=== PATIENT | female | born 1965 | race Caucasian/White ===

== ENCOUNTER 2021-10-21 07:54 | Emergency (ER) | payer MEDICAID, SELFPAY ==
--- NOTE | ~2021-10-21 | XR_ITS ---
EXAMINATION: XR G tube evaluation w imaging DATE: 10/21/2021 13:04 INDICATION: Permanent percutaneous gastrostomy tube placement TECHNIQUE: Supine AP view of the abdomen and pelvis was obtained. COMPARISON: 10/21/2021 at 8:41 AM FINDINGS: Contrast has been injected through the . Scans gastrostomy tube which opacifies the distal stomach an d duodenum to the level of the ligament of Treitz. The contrast outlines the lucent gastrostomy tube bulb in the stomach. No evident contrast extravasation. There is additional more dilute oral contrast material in the colon extending to the rectum which was present at the time of the prior study. No d ilated loops of bowel to suggest obstruction. Lung bases are clear. Heart size is normal. IMPRESSION: 1. Percutaneous gastrostomy tube tip and bulb in expected position within the body of the stomach. Reviewed, dictated and finalized at location A. PACKER IMPRESSION: 1. Percutaneous gastrostomy tube tip and bulb in expected position within the b rafa of the stomach.
--- NOTE | ~2021-10-21 | XR_ITS ---
XR abdomen NG/feed tube insert DATE: 10/21/2021 08:46 INDICATION: Feeding tube placement TECHNIQUE: Portable supine AP view COMPARISON: None FINDINGS: A tube overlies the left mid to upper abdomen. There is radiopaque contrast material within the rectum and colon. No bowel obstruction is evident. The psoas shadows are intact. No visceromegaly is detected. Included skeletal structures are unremark able. IMPRESSION: Tube overlies left mid to upper abdomen Reviewed, dictated and finalized at Location A. Reviewed, dictated and finalized at location B. ER INSTALLER
--- NOTE | ~2021-10-21 | CT_ITS ---
EXAMINATION: CT brain wo con DATE: 10/21/2021 11:06 INDICATION: Recent intracranial hemorrhage presenting post fall TECHNIQUE: Computed tomography (CT) of the head was performed without intravenous contrast. Sagittal and coronal reconstructions were performed. The mA was adjusted according to patient size. Iterative reconstruction technique was employed. The dose-length product was 681.00 mGy-cm. COMPARISON: None FINDINGS: There is a subdural hematoma with mixed attenuation measuring up to 1.8 cm in maximal thickness under lying a recent left frontoparietal craniotomy with overlying skin abhishek. Hematoma measures approxim ately 10 cm AP and 9.3 cm craniocaudally. The heterogeneous attenuation suggests relatively recent ei ther acute or subacute hemorrhage. There is mass effect with effacement of the underlying sulci, mild asymmetric decrease in size of the right lateral ventricle and 6 mm right to left midline shift at t he interventricular septum. There is a moderate-sized region of decreased predominantly white matter attenuation in the underlying right frontal lobe consistent with vasogenic edema which could be relat ed to reported prior intracranial hemorrhage or surgery. The orbits, paranasal sinuses and mastoid ai r cells are normal. IMPRESSION: 1. Large likely acute to subacute right frontoparietal subdural hematoma underlying a large craniotom y resulting in significant mass effect with 6 mm right to left midline shift. There is no prior imagi ng and is unclear to what extent this represents immediate postsurgical change versus ongoing or more recent hemorrhage. Recommend correlation with any prior outside imaging. 2. Moderate-sized region of vasogenic edema in the right frontal lobe likely related to reported rece nt intracranial hemorrhage or surgery with differential including infarct, malignancy or infection. Reviewed, dictated and finalized at location A. ECTIONS REP IMPRESSION: 1. Large likely acute to subacute right frontoparietal subdural hematoma underl sushma a large craniotomy resulting in significant mass effect with 6 mm right to left midline shift. There is no prior imaging and is unclear to what extent th is represents immediate postsurgical change versus ongoing or more recent hemor rhage. Recommend correlation with any prior outside imaging. 2. Moderate-sized region of vasogenic edema in the right frontal lobe likely re lated to reported recent intracranial hemorrhage or surgery with differential i ncluding infarct, malignancy or infection.
[2021-10-21 07:57] VITALS: BP 131/85; PULSE 112; RESP 16; TEMP 36.2; O2SAT 98
[2021-10-21 08:03] VITALS: BP 143/80; PULSE 107; RESP 16; TEMP 36.2; O2SAT 99
[2021-10-21 08:22] VITALS: RESP 16
--- NOTE | 2021-10-21 08:26 | PC.NURSE ---
G TUBE REPLACED AT THE BEDSIDE BY CIRA PETERSON AT 0800.
[2021-10-21 09:05] VITALS: BP 122/78; PULSE 110; RESP 16; TEMP 36.3; O2SAT 97
--- NOTE | 2021-10-21 09:10 | ED.GENADULT ---
HPI - General Adult General Chief complaint: Unspecified Stated complaint: PEG self removed Time Seen by Provider: 10/21/21 08:07 Source: patient, EMS and other ([facility] report) Mode of arrival: EMS Limitations: other (some aphasia due to stroke. pt whispers.) History of Present Illness HPI narrative: Pt pulled out PEG tube overnight. Pt has apparently pulled out the tube and a replaced catheter several times. Pt says she does not want the tube in anymore. Daughter is on way and will discuss with her to determine future course. Hudson placed by nursing without difficulty. Onset (ago): hour(s) Related Data Home Medications Medication Instructions Recorded Confirmed acetaminophen 325 mg FEEDING TUBE PRN PRN 10/21/21 carvedilol 12.5 mg FEEDING TUBE BID 10/21/21 folic acid 1 mg FEEDING TUBE DAILY 10/21/21 heparin (porcine) 5,000 unit SUBCUT Q8H 10/21/21 lacosamide [Vimpat] 100 mg FEEDING TUBE Q12H 10/21/21 levetiracetam 750 mg PO BID 10/21/21 lisinopril 20 mg FEEDING TUBE DAILY 10/21/21 loperamide 2 mg FEEDING TUBE QID PRN 10/21/21 melatonin 3 mg FEEDING TUBE HS 10/21/21 10/21/21 Allergies Allergy/AdvReac Type Severity Reaction Status Date / Time No Known Allergies Allergy Unknown Verified 10/21/21 08:28 Review of Systems Review of Systems: no specific complaints Exam Const: General: comfortable and alert Nutritional Appearance: underweight Orientation/consciousness: patient oriented x3 Other: some expressive aphasia due to prior CVA HENMT: Head: atraumatic (large scalp wound with abhishek present appears healed) Mouth: Yes Normal oral and palatal mucosa present Neck: Neck: normal visual inspection and no meningeal signs Chest: Chest palpation & inspection: normal inspection of the chest Resp: Effort & Inspection: normal respiratory effort Auscultation: clear to auscultation bilaterally Cardio: Rate: regular rate Rhythm: regular rhythm GI: Inspection: normal to inspection (peg tube site intact no drainage) Skin: General skin exam: normal color and no rashes or lesions noted Neuro: General: patient oriented x3 and no focal motor deficits (chronic right sided deficit from prior CVA) Course Course Emergency Course: on daughter's arrival apparently there was a fall since last night and a nw bruise on the patient's face. ordered CT head. Talked with Dr Deleon at [facility] who reviewed CT and said this is all post op and not acute and can be discharged. also said it was ok to remove abhishek. abhishek removed without difficulty. Vital Signs Vital signs: Vital Signs Temperature 97.1 F L 10/21/21 07:57 Pulse Rate 112 H 10/21/21 07:57 Respiratory Rate 16 10/21/21 07:57 Blood Pressure 131/85 10/21/21 07:57 Pulse Oximetry 98 10/21/21 07:57 Temperature 97.4 F L 10/21/21 09:05 Pulse Rate 110 H 10/21/21 09:05 Respiratory Rate 16 10/21/21 09:05 Blood Pressure 122/78 10/21/21 09:05 Pulse Oximetry 97 10/21/21 09:05 Procedures Feeding Tube Replacement Feeding Tube #1: Feeding Tube Placement Date: 10/21/21 Feeding Tube Placement Time: 13:29 Type of Tube: gastrostomy Insertion Site Prior to Procedure: clean [place] Tube Size (F): 16 Verification of Placement: gastrografin injection Tube Secured by: attachment device Patient Tolerated Procedure: well Medical Decision Making Vital Signs Vital Signs: Vital Signs Temperature 97.1 F L 10/21/21 07:57 Pulse Rate 112 H 10/21/21 07:57 Respiratory Rate 16 10/21/21 07:57 Blood Pressure 131/85 10/21/21 07:57 Pulse Oximetry 98 10/21/21 07:57 Temperature 97.4 F L 10/21/21 09:05 Pulse Rate 110 H 10/21/21 09:05 Respiratory Rate 16 10/21/21 09:05 Blood Pressure 122/78 10/21/21 09:05 Pulse Oximetry 97 10/21/21 09:05 Lab Data Result diagrams: 10/21/21 12:10 10/21/21 12:11 Labs: Lab Results 10/21/21 10/21/21 10/21/21 Range/Uni
--- NOTE | 2021-10-21 09:55 | PC.NURSE ---
SPOKE WITH LOLA DE LEÓN DAUGHTER OF PT WHO STATES SHE WILL COME UP [place] TO SPEAK WITH DR DEVI.
--- NOTE | 2021-10-21 10:35 | PC.NURSE ---
PT'S DAUGHTER AT BEDSIDE. DR DEVI MADE AWARE.
--- NOTE | 2021-10-21 11:17 | PC.NURSE ---
1100 DAUGHTER AT THE BEDSIDE. DAUGHTER REPORTS THAT PATIENT HAS A SWOLLEN LIP AND A BRUISE THAT SHE DID NOT HAVE YESTERDAY. UNSURE IF SHE FELL. PATIENT DOES NOT REMEMBER. NO REPORT FROM EMS OR [facility] THAT THE PATIENT FELL. MD NOTIFIED, HEAD CT ORDERED. PATIENT REMAINS C/A/O.
[2021-10-21 12:38] LABS: Basophils Absolute Auto 0.1 K/mm3 (0.0-0.1); Basophils Percent Auto 0.8 % (0.2-1.2); Eosinophils Absolute Auto 0.2 K/mm3 (0-0.3); Eosinophils Percent Auto 1.3 % (0-4.4); Hematocrit 39.2 % (37.0-47.0); Hemoglobin 12.6 g/dL (12.0-15.0); Immature Granulocyte Percent A 1.4 % (0-0.5); Lymphocytes Absolute Auto 2.72 K/mm3 (0.9-3.2); Lymphocytes Percent Auto 19.1 % (18.3-44.2); Mean Corpuscular HGB Conc 32.1 g/dl (32-36); Mean Corpuscular Hemoglobin 32.5 pg (26-34); Mean Platelet Volume 8.9 fl (7.4-10.4); Monocytes Absolute Auto 1.2 K/mm3 (0.1-0.6); Monocytes Percent Auto 8.1 % (2.6-8.5); Neutrophils Absolute Auto 9.9 K/mm3 (1.3-6.7); Neutrophils Percent Auto 69.3 % (45.5-73.1); Platelet Count Result 850 k/mm3 (150-375); Red Blood Count 3.88 M/mm3 (4.2-5.4); Red Cell Distribution Width 15.2 % (11.5-14.5); White Blood Count 14.3 K/mm3 (4.5-10.0)
[2021-10-21 12:48] LABS: Partial Thromboplastin Time 24.2 SECONDS (22.3-36.8)
[2021-10-21 15:15] VITALS: BP 132/74; PULSE 104; RESP 16; O2SAT 97
== END 2021-10-21 15:25 ==
PROVIDERS: Emergency Provider Emergency Medicine
DX: Z43.1 Encounter for attention to gastrostomy (principal); I69.320 Aphasia following cerebral infarction; S00.83XA Contusion of other part of head, initial encounter; W19.XXXA Unspecified fall, initial encounter; Z79.01 Long term (current) use of anticoagulants
CPT/HCPCS: 36415; 49450; 49465; 70450; 85025; 85610; 85730; 99284

== ENCOUNTER 2022-02-20 21:37 | Observation (INO) | payer OTHER, SELFPAY ==
--- NOTE | ~2022-02-20 | XR_ITS ---
EXAMINATION: XR chest 1V portable DATE: 02/20/2022 22:32 INDICATION: COVID-19 pneumonia. TECHNIQUE: A single frontal view of the chest was obtained on 3 radiographs. COMPARISON: CT abdomen 12/20/2004 FINDINGS: There is mild scarring at the lung apices. No pleural effusion or pneumothorax. The heart s ize is normal. A gastrostomy tube is noted. IMPRESSION: 1. Mild scarring at the lung apices. Reviewed, dictated and finalized at location A.
[2022-02-20 21:39] VITALS: BP 85/53; PULSE 72; RESP 17; TEMP 36.4; O2SAT 98
[2022-02-20] MEDS: SODIUM CHLORIDE 0.9% IV 1,000 ML 999 ML IV CONT ×2 (21:51→23:08)
[2022-02-20 21:54] VITALS: PULSE 73; RESP 18
[2022-02-20 22:00] VITALS: BP 97/56; PULSE 66; RESP 16
--- NOTE | 2022-02-20 22:13 | ECG_ITS ---
Measurements Intervals [place] Rate: 67 P: -60 WA: 141 QRS: 77 QRSD: 64 T: 74 QT: 397 QTc: 420 Interpretive Statements POOR QUALITY ECG WITH BASELINE ARTIFACT SINUS RHYTHM POSSIBLE PREVIOUS ANTEROSEPTAL FL ABNORMAL ECG NO PREVIOUS ECG AVAILABLE FOR COMPARISON Electronically Signed On 02-21-2022 13:05:14 CDT by Eliot Saucedo M.D.
--- NOTE | 2022-02-20 22:22 | ED.GENADULT ---
HPI - General Adult General Chief complaint: Unspecified Stated complaint: hypotensive and COVID + 02/16 Time Seen by Provider: 02/20/22 22:10 History of Present Illness HPI narrative: 57-year-old female sent in from a rehab facility secondary to persistent hypotension today. Patient states that she was recently diagnosed with COVID. She is had some cough congestion. Some intermittent fevers. She did not feel short of breath. States that her blood pressures been much lower than it normally had been running. She denies any chest pain. She had no urinary symptoms. Patient is in the rehab facility because she had a stroke about 5 months ago left her paralyzed on the left side. Related Data Home Medications Medication Instructions Recorded Confirmed acetaminophen 325 mg tablet 325 mg feeding tube PRN PRN Pain 10/21/21 carvedilol 12.5 mg tablet 12.5 mg feeding tube BID 10/21/21 folic acid 1 mg tablet 1 mg feeding tube DAILY 10/21/21 heparin (porcine) 5,000 unit/mL 5,000 unit subcut Q8H 10/21/21 injection syringe lacosamide 100 mg tablet (Vimpat) 100 mg feeding tube Q12H 10/21/21 levetiracetam 750 mg tablet 750 mg PO BID 10/21/21 lisinopril 20 mg tablet 20 mg feeding tube DAILY 10/21/21 loperamide 2 mg tablet 2 mg feeding tube QID PRN Diarrhea 10/21/21 melatonin 3 mg tablet 3 mg feeding tube HS 10/21/21 10/21/21 Allergies Allergy/AdvReac Type Severity Reaction Status Date / Time No Known Allergies Allergy Unknown Verified 02/20/22 21:57 Review of Systems Review of Systems: CONSTITUTIONAL: Some mild fevers have been noted EYES: Denies visual changes, redness, or discharge. ENT: Denies rhinorrhea, congestion, sore throat, or otalgia. CARDIOVASCULAR: Denies chest pain, palpitations, or edema. RESPIRATORY: Having some cough but denies any shortness of breath. GASTROINTESTINAL: Denies abdominal pain, nausea, vomiting, or diarrhea. GENITOURINARY: Denies dysuria or hematuria. SKIN: Denies rash or itching. MUSCULOSKELETAL: Denies back pain, joint pain, or myalgia. NEUROLOGIC: Denies headache. Paralyzed on the left side of her body secondary to a stroke PSYCHIATRIC: Denies anxiety or depression. [facility] Past Medical History Medical History COVID CVA (cerebral vascular accident) Social History Social History Smoking status: Smoker, status unknown Additional living arrangements comments: Currently in a rehab facility Exam Narrative: APPEARANCE: Well appearing, no pain or distress, well-nourished. Head normocephalic and atraumatic. EYES: PERRLA/EOMI, conjunctivae very clear. NOSE: Normal with no drainage EARS:TMS clear Mina Hoyos, with good light reflex. THROAT: Pharynx clear, no exudate. NECK: Supple. No adenopathy, no masses. RESPIRATORY: Airway patent, respirations nonlabored. Few scattered rhonchi CARDIOVASCULAR: Regular rate and rhythm without murmurs, rubs, or gallops. ABDOMINAL: Soft, nontender, nondistended, no hepatosplenomegaly. PEG tube in place Musculoskeletal: Moves all extremities. Strength/ROM intact, No edema, No calf tenderness. NEURO: Alert. Cranial nerves II through XII intact. Paralysis to the left side of her body. SKIN:: Warm, dry. Normal Color PSYCHIATRIC: Normal affect/mood, normal interaction Course Vital Signs Vital signs: Vital Signs Temperature 97.5 F L 02/20/22 21:39 Pulse Rate 72 02/20/22 21:39 Respiratory Rate 17 02/20/22 21:39 Blood Pressure 85/53 L 02/20/22 21:39 Pulse Oximetry 98 02/20/22 21:39 Oxygen Delivery Room Air 02/20/22 21:39 Temperature 97.5 F L 02/20/22 21:39 Pulse Rate 67 02/20/22 23:06 Respiratory Rate 19 02/20/22 23:06 Blood Pressure 95/54 L 02/20/22 23:06 Pulse Oximetry 99 02/20/22 23:06 Oxygen Delivery Room Air 02/20/22 21:39 Medical Decision Making MDM Narrative Medical decision making narrative:
[2022-02-20 23:05] VITALS: PULSE 66; RESP 20; O2SAT 100
[2022-02-20 23:06] VITALS: BP 95/54; PULSE 67; RESP 19; O2SAT 99
[2022-02-20 23:06] LABS: Basophils Percent Auto 0.4 % (0.2-1.2); Eosinophils Absolute Auto 0.2 K/mm3 (0-0.3); Eosinophils Percent Auto 1.8 % (0-4.4); Hematocrit 32.6 % (37.0-47.0); Hemoglobin 10.5 g/dL (12.0-15.0); Immature Granulocyte Absolute 0.03 K/mm3 (0.00-0.031); Immature Granulocyte Percent A 0.4 % (0-0.5); Lymphocytes Absolute Auto 2.99 K/mm3 (0.9-3.2); Lymphocytes Percent Auto 36.8 % (18.3-44.2); Mean Corpuscular HGB Conc 32.2 g/dl (32-36); Mean Corpuscular Hemoglobin 30.3 pg (26-34); Mean Corpuscular Volume 94.2 fl (80-100); Monocytes Absolute Auto 0.8 K/mm3 (0.1-0.6); Monocytes Percent Auto 9.3 % (2.6-8.5); Neutrophils Absolute Auto 4.2 K/mm3 (1.3-6.7); Neutrophils Percent Auto 51.3 % (45.5-73.1); Platelet Count Result 361 k/mm3 (150-375); Red Blood Count 3.46 M/mm3 (4.2-5.4); Red Cell Distribution Width 13.2 % (11.5-14.5); White Blood Count 8.1 K/mm3 (4.5-10.0)
[2022-02-20 23:08] LABS: Appearance Urine Clear (Clear); Bilirubin Urine 1+ (Negative); Blood Urine Negative (Negative); Color Urine Yellow (Yellow); Glucose Urine UA Negative (Negative); Ketones Urine 1+ mg/dL (Negative); Leukocyte Esterase Ur Negative LEU/UL (Negative); Nitrate Urine Negative (Negative); Protein Urine Negative (Negative); Specific Grav Ur 1.015 (1.001-1.035)
--- NOTE | 2022-02-20 23:09 | PC.NURSE ---
stuck pt 2 times. able to get get most of blood draw.unable to collect cultures. called Eve, sterile processing technologist, for assistance.
[2022-02-20 23:14] LABS: Bacteria Urine Trace /hpf; Mucus Urine Rare /lpf; Squamous Epithelial Cell Urine Rare /hpf (Few); WBC Urine 16-20 /hpf
[2022-02-20 23:15] LABS: Lactic Acid Reflex 0.6 mmol/L (0.7-2.0)
[2022-02-20 23:16] LABS: Add Urine Microscopic? YES
[2022-02-20 23:16] LABS: Alanine Aminotransferase 7 U/L (6-35); Albumin Level 2.5 g/dL (3.5-5.1); Alkaline Phosphatase 46 U/L (38-126); Anion Gap 7 mmol/L (8-16); Aspartate Amino Transferase 13 U/L (14-36); Bilirubin,Total 0.1 mg/dL (0.2-1.3); Blood Urea Nitrogen 29 mg/dL (7-17); Calcium 6.3 mg/dL (8.4-10.2); Carbon Dioxide 16 mmol/L (22-30); Chloride 107 mmol/L (98-107); Estimated CRCL calculation 25 ml/min; Estimated Glomerular Filt Rate 31; Glucose 61 mg/dL (65-110); Potassium 3.7 mmol/L (3.4-5.0); Sodium 130 mmol/L (137-145)
[2022-02-20 23:44] LABS: SARS-CoV-2 RNA PCR Positive
[2022-02-21] VITALS (9 sets, daily range): BP systolic 82–131; BP diastolic 41–106; PULSE 64–76; RESP 15–20; TEMP 36.4–36.7; O2SAT 95–100; BMI 17.2
--- NOTE | 2022-02-21 00:12 | PC.NURSE ---
Pt blood sugar found to be 61 when lab results came back. Pt able to drink 4 ounces of apple juice and re check blood sugar is 77. MD fernandes
[2022-02-21 00:14] LABS: Glucose Point of Care 77 mg/dl (65-105)
--- NOTE | 2022-02-21 00:47 | PM.IMHP ---
H&P: HPI History of Present Illness Date/Time: 02/21/22 00:47 Chief Complaint: Chills Narrative: This is a 57-year-old female with past medical history significant for subdural hematoma post surgical procedure, left-sided hemiplegia, hypertension, percutaneous gastrostomy. Patient is currently residing at rehabilitation facility. Has been brought in today due to chills fevers low blood pressures and tested positive for COVID-19 on February 16 also poor per orally intake has not eaten in the last several days, patient denies any nausea, vomiting, diarrhea, shortness of breath, cough, or sputum production. In emergency room patient had blood pressures in the 80s systolic blood pressure, she tested positive for COVID, chemistry panel was significant for sodium of 130, urinalysis with numerous WBCs present, a chest x-ray was clear. Patient is been admitted for further evaluation, management and treatment. Review of Systems Review of Systems: Chills, poor appetite, low blood pressures. Constitutional: Constitutional: Reports chills and Reports poor appetite Eyes: Eyes: Denies change in vision ENT: Denies dysphagia, Denies vertigo, Denies dizziness and Denies odynophagia Cardiovascular: Cardiovascular: Denies chest pain, Denies pedal edema, Denies irregular heart rhythm, Denies claudication, Denies radiating jaw, neck or arm pain, Denies palpitations and Denies dyspnea on exertion Respiratory: Respiratory: Denies chest congestion, Denies cough and Denies excessive phlegm production Gastrointestinal: Gastrointestinal: Denies abdominal pain, Denies dyspepsia, Denies heartburn, Denies diarrhea, Denies nausea and Denies vomiting Genitourinary: Genitourinary: Denies dysuria Musculoskeletal: Musculoskeletal: Denies arthralgias, Denies joint swelling and Reports muscle weakness Integumentary/Breasts: Skin/Breast: Denies rash Neurologic: Reports other (Left hemiplegia) Psychiatric: Psychiatric: Reports no additional psychiatric complaints and Reports as per HPI Endocrine: Endocrine: Denies cold intolerance, Denies fatigue, Denies flushing, Denies heat intolerance, Denies polyphagia, Denies polydipsia and Denies palpitations Hematologic/Lymphatic: Hematologic/Lymphatic: Reports no additional hematologic/lymphatic complaints and Reports as per HPI Allergic/Immunologic: Allergic/Immunologic: Reports no additional allergic/immunologic complaints and Reports as per HPI [facility] Past Medical History Medical History COVID CVA (cerebral vascular accident) Family History Family History (Updated 02/21/22 @ 01:21 by Keaton Estrada RN) Mother Cerebrovascular accident Father Cerebrovascular accident Social History Social History Smoking status: Former smoker Tobacco type: cigarettes Alcohol intake: never Substance use: never Substance use type: does not use Additional living arrangements comments: Currently in a rehab facility Spiritual care concerns: No Meds Home Medications and Allergies Home Medications Medication Instructions Recorded Confirmed Type acetaminophen 325 mg tablet 325 mg feeding tube PRN PRN Pain 10/21/21 02/21/22 History carvedilol 12.5 mg tablet 12.5 mg feeding tube BID 10/21/21 02/21/22 History folic acid 1 mg tablet 1 mg feeding tube DAILY 10/21/21 02/21/22 History lacosamide 100 mg tablet (Vimpat) 100 mg feeding tube Q12H 10/21/21 02/21/22 History levetiracetam 750 mg tablet 750 mg PO BID 10/21/21 02/21/22 History lisinopril 20 mg tablet 20 mg feeding tube DAILY 10/21/21 02/21/22 History loperamide 2 mg tablet 2 mg feeding tube QID PRN Diarrhea 10/21/21 02/21/22 History melatonin 3 mg tablet 3 mg feeding tube HS 10/21/21 02/21/22 History aspirin 81 mg chewable tablet 81 mg feeding tube DAILY 02/21/22 02/21/22 History omeprazole 20 mg capsule,delayed 20 mg feeding tube DAILY 02/21/2202/21
--- NOTE | 2022-02-21 01:12 | ADMGEN ---
This patient, Martina Figuerao, was admitted to Medical Room [facility]- at 0107. Patient/family oriented to hospital policies and general routines including ID bracelet, bed and alarms, visiting hours, pain management, procedures, bathroom and other care routines, personal items, smoking policy, room service/diet, and visiting hours. Information on how to activate the Rapid Response Team has been discussed. Patient/Family are encouraged to report perceived risks to care and to ask questions if they do not understand what they are told or what they should do.
--- NOTE | 2022-02-21 02:30 | PC.NURSE ---
Called [facility] is clarify patient's g-tube feedings. RN on duty at senior living unable to verify patient's feeding schedule or type of feeds. [facility] RN stated to call back in the morning for clarification.
[2022-02-21] MEDS: SODIUM CHLORIDE 0.9% IV 250 ML IV CONT (02:54)
[2022-02-21] MEDS: MIDODRINE HCL 10 MG TABLET PO (03:03)
[2022-02-21] MEDS: MIDODRINE HCL 2.5 MG TABLET 5 MG PO (03:05)
[2022-02-21] MEDS: ACETAMINOPHEN 500 MG TABLET 1000 MG PO (04:58)
[2022-02-21 05:38] LABS: Basophils Absolute Auto 0.1 K/mm3 (0.0-0.1); Basophils Percent Auto 0.5 % (0.2-1.2); Eosinophils Absolute Auto 0.2 K/mm3 (0-0.3); Eosinophils Percent Auto 2.2 % (0-4.4); Hematocrit 36.1 % (37.0-47.0); Hemoglobin 11.8 g/dL (12.0-15.0); Immature Granulocyte Absolute 0.04 K/mm3 (0.00-0.031); Immature Granulocyte Percent A 0.4 % (0-0.5); Lymphocytes Absolute Auto 3.64 K/mm3 (0.9-3.2); Mean Corpuscular HGB Conc 32.7 g/dl (32-36); Mean Corpuscular Volume 91.9 fl (80-100); Mean Platelet Volume 7.9 fl (7.4-10.4); Monocytes Absolute Auto 0.8 K/mm3 (0.1-0.6); Neutrophils Absolute Auto 5.1 K/mm3 (1.3-6.7); Neutrophils Percent Auto 51.9 % (45.5-73.1); Platelet Count Result 448 k/mm3 (150-375); Red Blood Count 3.93 M/mm3 (4.2-5.4); White Blood Count 9.8 K/mm3 (4.5-10.0)
[2022-02-21 05:50] LABS: Anion Gap 10 mmol/L (8-16); Blood Urea Nitrogen 28 mg/dL (7-17); Calcium 8.2 mg/dL (8.4-10.2); Carbon Dioxide 17 mmol/L (22-30); Chloride 102 mmol/L (98-107); Estimated CRCL calculation 29 ml/min; Estimated Glomerular Filt Rate 42; Glucose 83 mg/dL (65-110); Potassium 5.1 mmol/L (3.4-5.0); Sodium 129 mmol/L (137-145)
[2022-02-21] MEDS: levETIRAcetam 250 MG TABLET 750 MG PO ×2 (08:16→20:00)
[2022-02-21] MEDS: FOLIC ACID 1 MG TABLET FEED TUBE (08:17)
[2022-02-21] MEDS: PANTOPRAZOLE 40 MG TABLET PO (08:17)
[2022-02-21] MEDS: ASPIRIN 81 MG CHEWABLE TABLET FEED TUBE (08:17)
--- NOTE | 2022-02-21 08:29 | PM.IMPN ---
Progress Note: A&P Assessment and Plan (1) Hypotension: Code(s): I95.9 - Hypotension, unspecified Status: Acute (2) Hypoglycemia: Code(s): E16.2 - Hypoglycemia, unspecified Status: Acute (3) Protein calorie malnutrition: Code(s): E46 - Unspecified protein-calorie malnutrition Status: Acute (4) UTI (urinary tract infection): Code(s): N39.0 - Urinary tract infection, site not specified Status: Acute (5) Status post CVA: Code(s): Z86.73 - Personal history of transient ischemic attack (TIA), and cerebral infarction without residual deficits Status: Acute (6) COVID: Code(s): U07.1 - COVID-19 Status: Acute Plan CONNER, metabolic acidosis, UTI, hypotension, COVID19. UCX and BCX pending. Note completed after midnight. See H&P for remainder of plan. On room air not requiring oxygen at this time. Will give supportive care for COVID19. Will continue with ceftriaxone and f/u bcx & UCX. Will need help from care coordination to help arrange some type of home care if possible. Subjective Date/time seen: 02/21/22 08:29 patient says she feels better than when she came to the ED. patient says she does not have help at home and would like some help. Exam Narrative: GENERAL: NAD, cooperative HEENT: Normocephalic, atraumatic NECK: Supple CV: Normal S1, S2, RRR, No MRG RESP: CTAB, Normal work of breathing. Abdomen: Soft, non-tender, non-distended, +BS EXTREMITIES: Warm and well perfused, no clubbing, cyanosis, or edema. SKIN: warm, dry and intact. NEURO: Has chronic deficits Objective Data Vital Signs Vital Signs: Vital Signs - 24 hr 02/20/22 21:39 02/20/22 21:54 02/20/22 21:54 Temperature 97.5 F L Pulse Rate 72 73 Respiratory Rate 17 18 Blood Pressure 85/53 L Pulse Oximetry 98 Oxygen Delivery Room Air 02/20/22 22:00 02/20/22 23:06 02/20/22 23:05 Temperature Pulse Rate 66 67 66 Respiratory Rate 16 19 20 Blood Pressure 97/56 L 95/54 L Pulse Oximetry 99 100 Oxygen Delivery 02/21/22 00:07 02/21/22 00:24 02/21/22 01:25 Temperature 97.6 F Pulse Rate 64 65 Respiratory Rate 15 16 Blood Pressure 93/58 L 102/58 L 87/47 L Pulse Oximetry 97 97 Oxygen Delivery 02/21/22 02:14 02/21/22 02:42 02/21/22 03:02 Temperature Pulse Rate Respiratory Rate Blood Pressure 82/41 L Pulse Oximetry 95 Oxygen Delivery Room Air Room Air 02/21/22 03:49 02/21/22 04:12 Temperature 97.8 F Pulse Rate 70 Respiratory Rate 18 Blood Pressure 97/43 L 108/65 Pulse Oximetry 98 Oxygen Delivery Intake/Output Intake/Output: Intake & Output 02/18/22 02/19/22 02/20/22 02/21/22 23:59 23:59 23:59 23:59 Intake Total 1000 1050 Output Total 300 Balance 700 1050 Meds/Results Medications: Active Medications Generic Name Dose Route Start Last Admin Trade Name Freq PRN Reason Stop Dose Admin Acetaminophen 325 mg 02/21/22 02:49 Acetaminophen 325 Mg Tablet FEED TUBE Q4H PRN Pain Rated 1-3 Aspirin 81 mg 02/21/22 08:00 02/21/22 08:17 Aspirin 81 Mg Chewable Tablet FEED TUBE 81 mg DAILY@0800 SHANTI Administration Folic Acid 1 mg 02/21/22 09:00 02/21/22 08:17 Folic Acid 1 Mg Tablet FEED TUBE 1 mg DAILY SHANTI Administration Ceftriaxone Sodium/Dextrose 1 gm in 50 mls @ 100 mls/hr 02/22/22 01:00 Rocephin 1 Gm/D5w 50 Ml IVPB Q24H SHANTI Lacosamide 100 mg 02/21/22 09:00 Lacosamide (*Crx) 100 Mg Tablet FEED TUBE Q12HR SHANTI Levetiracetam 750 mg 02/21/22 09:00 02/21/22 08:16 Levetiracetam 250 Mg Tablet PO 750 mg Q12HR SHANTI Administration Melatonin 3 mg 02/21/22 21:00 Melatonin 3 Mg Tablet FEED TUBE HS SHANTI Pantoprazole Sodium 40 mg 02/21/22 09:00 02/21/22 08:17 Pantoprazole 40 Mg Tablet PO 40 mg QAM SHANTI Administration Simethicone 80 mg 02/21/22 02:49 Simethicone 80 Mg Tab.Chew FEED TUBE QID PRN
[2022-02-21] MEDS: LACOSAMIDE (*CRX) 100 MG TABLET FEED TUBE ×2 (08:38→20:00)
--- NOTE | 2022-02-21 09:45 | PC.NURSE ---
called Maximino to clarify if pt is using peg-tube, and clarify diet orders [phone].Crystal nurse on [place] stated that peg tube is not in use currently, but pt was on continuous feeding in the past Jevity 1.5 @ 50 ml/hr.
[2022-02-21] MEDS: MELATONIN 3 MG TABLET FEED TUBE (20:00)
[2022-02-21] MEDS: ACETAMINOPHEN 325 MG TABLET FEED TUBE (20:00)
[2022-02-22] MEDS: ACETAMINOPHEN 325 MG TABLET FEED TUBE ×3 (04:40→17:44)
[2022-02-22 04:45] VITALS: BP 126/71; PULSE 74; RESP 22; TEMP 36.6; O2SAT 100
--- NOTE | 2022-02-22 08:02 | PM.IMPN ---
Progress Note: A&P Assessment and Plan (1) UTI (urinary tract infection): Code(s): N39.0 - Urinary tract infection, site not specified Status: Acute Assessment and Plan: UCX pending. Patient overall clinically improved on ceftriaxone. BCX NGTD. -Continue ceftriaxone -F/U UCX results for sensitivities -Patient discharge held because care coordination is working on placement as patient does no want to return to [facility]. (2) COVID: Code(s): U07.1 - COVID-19 Status: Acute Assessment and Plan: Adequate oxygen saturation on room air. Asymptomatic. Defer remdesivir and dexamethasone at this time as patient is asymptomatic. Will monitor. (3) Hypotension: Code(s): I95.9 - Hypotension, unspecified Status: Acute Assessment and Plan: Present at initial presentation. Lisinopril and carvedilol have been held since admission. May have been related to UTI but lactic acid was normal. (4) Acute kidney injury: Code(s): N17.9 - Acute kidney failure, unspecified Status: Acute Assessment and Plan: Creatinine elevated to 1.3 on admission. After hydration improved to 0.7. Resolved. (5) Hypoglycemia: Code(s): E16.2 - Hypoglycemia, unspecified Status: Acute Assessment and Plan: Resolved. (6) Protein calorie malnutrition: Code(s): E46 - Unspecified protein-calorie malnutrition Status: Acute Assessment and Plan: Appreciate recommendations from Dietary. G-tube currently not being used. Patient refused breakfast tray this morning. May need additional supplement vs restarting tube feeds. (7) Status post CVA: Code(s): Z86.73 - Personal history of transient ischemic attack (TIA), and cerebral infarction without residual deficits Status: Acute Assessment and Plan: Limited mobility with left sided hemiparesis. Continue ASA. Would benefit from high intensity statin. (8) Problem with gastrostomy tube: Code(s): K94.20 - Gastrostomy complication, unspecified Status: Acute Assessment and Plan: Surrounding skin with maceration. Wound ostomy nursing recommended aloe vesta antifungal barrier cream. Will add tramadol for pain control. Subjective Date/time seen: 02/22/22 08:02 Patient says the area around her g-tube is painful. She also says she does not want to return to the facility where she lives. She denies difficulty breathing or shortness of breath. She denies lower abdominal pain. Review of Systems Respiratory: Respiratory: Denies dyspnea Integumentary/Breasts: Skin/Breast: Reports erythema, Reports skin pain and Reports wounds Exam Narrative: GENERAL: NAD, cooperative HEENT: Normocephalic, atraumatic NECK: Supple CV: Normal S1, S2, RRR, No MRG RESP: CTAB, Normal work of breathing. Abdomen: Soft, non-tender, non-distended, skin surrounding g tube with erythema. No bleeding. Serous drainage from wound. EXTREMITIES: Warm and well perfused, no clubbing, cyanosis, or edema. SKIN: warm, dry and intact. NEURO: Has chronic deficits Objective Data Vital Signs Vital Signs: Vital Signs - 24 hr 02/21/22 13:59 02/21/22 19:25 02/21/22 20:00 Temperature 98.0 F 98.1 F Pulse Rate 64 76 Respiratory Rate 16 20 Blood Pressure 126/59 L 131/106 H Pulse Oximetry 99 100 Oxygen Delivery Room Air 02/22/22 04:45 Temperature 97.9 F Pulse Rate 74 Respiratory Rate 22 H Blood Pressure 126/71 Pulse Oximetry 100 Oxygen Delivery Intake/Output Intake/Output: Intake & Output 02/19/22 02/20/22 02/21/22 02/22/22 23:59 23:59 23:59 23:59 Intake Total 1000 1400 50 Output Total 300 Balance 700 1400 50 Meds/Results Medications: Active Medications Generic Name Dose Route Start Last Admin Trade Name Freq PRN Reason Stop Dose Admin Acetaminophen 325 mg 02/21/22 02:49 02/22/22 04:40 Acetaminophen 325 Mg Tablet FEED TUBE 325 mg Q4H
[2022-02-22] MEDS: levETIRAcetam 250 MG TABLET 750 MG PO ×2 (08:35→20:57)
[2022-02-22] MEDS: LACOSAMIDE (*CRX) 100 MG TABLET FEED TUBE ×2 (08:38→20:57)
[2022-02-22] MEDS: ASPIRIN 81 MG CHEWABLE TABLET FEED TUBE (08:38)
[2022-02-22] MEDS: PANTOPRAZOLE 40 MG TABLET PO (08:39)
[2022-02-22] MEDS: FOLIC ACID 1 MG TABLET FEED TUBE (08:39)
[2022-02-22 09:30] LABS: Basophils Absolute Auto 0.1 K/mm3 (0.0-0.1); Basophils Percent Auto 0.5 % (0.2-1.2); Eosinophils Absolute Auto 0.2 K/mm3 (0-0.3); Eosinophils Percent Auto 2.2 % (0-4.4); Hematocrit 36.1 % (37.0-47.0); Hemoglobin 12.3 g/dL (12.0-15.0); Immature Granulocyte Absolute 0.05 K/mm3 (0.00-0.031); Immature Granulocyte Percent A 0.5 % (0-0.5); Lymphocytes Absolute Auto 2.96 K/mm3 (0.9-3.2); Lymphocytes Percent Auto 26.6 % (18.3-44.2); Mean Corpuscular HGB Conc 34.1 g/dl (32-36); Mean Corpuscular Hemoglobin 30.5 pg (26-34); Mean Corpuscular Volume 89.6 fl (80-100); Mean Platelet Volume 7.9 fl (7.4-10.4); Monocytes Absolute Auto 0.9 K/mm3 (0.1-0.6); Monocytes Percent Auto 8.3 % (2.6-8.5); Neutrophils Absolute Auto 6.9 K/mm3 (1.3-6.7); Neutrophils Percent Auto 61.9 % (45.5-73.1); Platelet Count Result 449 k/mm3 (150-375); Red Blood Count 4.03 M/mm3 (4.2-5.4); Red Cell Distribution Width 13.2 % (11.5-14.5); White Blood Count 11.1 K/mm3 (4.5-10.0)
[2022-02-22 09:47] LABS: Anion Gap 9 mmol/L (8-16); Blood Urea Nitrogen 16 mg/dL (7-17); Calcium 8.8 mg/dL (8.4-10.2); Carbon Dioxide 20 mmol/L (22-30); Chloride 103 mmol/L (98-107); Estimated CRCL calculation 51 ml/min; Estimated Glomerular Filt Rate > 60; Glucose 94 mg/dL (65-110); Potassium 4.5 mmol/L (3.4-5.0); Sodium 132 mmol/L (137-145)
[2022-02-22 14:40] VITALS: BP 116/67; PULSE 73; RESP 20; TEMP 36.7; O2SAT 93
[2022-02-22 19:31] VITALS: TEMP 36.7
[2022-02-22 20:56] VITALS: BP 95/60; PULSE 88; RESP 16; TEMP 36.7; O2SAT 94
[2022-02-22] MEDS: MELATONIN 3 MG TABLET FEED TUBE (20:57)
[2022-02-23 06:00] VITALS: BP 100/61; PULSE 80; RESP 16; O2SAT 94
--- NOTE | 2022-02-23 07:43 | PM.IMPN ---
Progress Note: A&P Assessment and Plan (1) UTI (urinary tract infection): Code(s): N39.0 - Urinary tract infection, site not specified Status: Acute Assessment and Plan: UCX with no growth BCX NGTD. -Discontinue ceftriaxone (2) COVID: Code(s): U07.1 - COVID-19 Status: Acute Assessment and Plan: Adequate oxygen saturation on room air. Asymptomatic. Defer remdesivir and dexamethasone at this time as patient is asymptomatic. Will monitor. (3) Hypotension: Code(s): I95.9 - Hypotension, unspecified Status: Acute Assessment and Plan: Present at initial presentation. Lisinopril and carvedilol have been held since admission. Resolved. (4) Acute kidney injury: Code(s): N17.9 - Acute kidney failure, unspecified Status: Acute Assessment and Plan: Creatinine elevated to 1.3 on admission. After hydration improved to 0.7. Resolved. (5) Hypoglycemia: Code(s): E16.2 - Hypoglycemia, unspecified Status: Acute Assessment and Plan: Resolved. (6) Protein calorie malnutrition: Code(s): E46 - Unspecified protein-calorie malnutrition Status: Acute Assessment and Plan: Appreciate recommendations from Dietary. G-tube currently not being used. Patient refused breakfast tray this morning. May need additional supplement vs restarting tube feeds. (7) Status post CVA: Code(s): Z86.73 - Personal history of transient ischemic attack (TIA), and cerebral infarction without residual deficits Status: Acute Assessment and Plan: Limited mobility with left sided hemiparesis. Continue ASA. Would benefit from high intensity statin. (8) Problem with gastrostomy tube: Code(s): K94.20 - Gastrostomy complication, unspecified Status: Acute Assessment and Plan: Surrounding skin with maceration. Wound ostomy nursing recommended aloe vesta antifungal barrier cream. -Gastroenterology Consulted about g-tube malfunction Subjective Date/time seen: 02/23/22 07:43 Patient has not complaints. Denies chest pain or shortness of breath. Review of Systems Respiratory: Respiratory: Denies dyspnea Exam Narrative: GENERAL: NAD, cooperative HEENT: Normocephalic, atraumatic NECK: Supple CV: Normal S1, S2, RRR, No MRG RESP: CTAB, Normal work of breathing. Abdomen: Soft, non-tender, non-distended, g tube dressing c/d/i EXTREMITIES: Warm and well perfused, no clubbing, cyanosis, or edema. SKIN: warm, dry and intact. NEURO: Has chronic deficits Objective Data Vital Signs Vital Signs: Vital Signs - 24 hr 02/23/22 15:09 02/23/22 20:43 02/24/22 06:00 Temperature 97.7 F 97.9 F 98.1 F Pulse Rate 78 76 72 Respiratory Rate 16 16 16 Blood Pressure 115/61 97/58 L 100/58 L Pulse Oximetry 95 99 99 Intake/Output Intake/Output: Intake & Output 02/21/22 02/22/22 02/23/22 02/24/22 23:59 23:59 23:59 23:59 Intake Total 1400 170 220 Output Total 50 0 Balance 1400 120 220 0 Meds/Results Medications: Active Medications Generic Name Dose Route Start Last Admin Trade Name Freq PRN Reason Stop Dose Admin Acetaminophen 325 mg 02/21/22 02:49 02/22/22 17:44 Acetaminophen 325 Mg Tablet FEED TUBE 325 mg Q4H PRN Administration Pain Rated 1-3 Aspirin 81 mg 02/21/22 08:00 02/23/22 08:57 Aspirin 81 Mg Chewable Tablet FEED TUBE 81 mg DAILY@0800 SHANTI Administration Folic Acid 1 mg 02/21/22 09:00 02/23/22 08:56 Folic Acid 1 Mg Tablet FEED TUBE 1 mg DAILY SHANTI Administration Ceftriaxone Sodium/Dextrose 1 gm in 50 mls @ 100 mls/hr 02/23/22 13:00 02/23/22 14:30 Rocephin 1 Gm/D5w 50 Ml IVPB Infused Q24H SHANTI Infusion Lacosamide 100 mg 02/21/22 09:00 02/23/22 20:46 Lacosamide (*Crx) 100 Mg Tablet FEED TUBE 100 mg Q12HR SHANTI Administration Levetiracetam 750 mg 02/21/22 09:00 02/23/22 20:46 Levetiracetam 250 Mg Tablet
--- NOTE | 2022-02-23 08:00 | PM.DS ---
DS: Summary Time Spent with Patient Time attestation: Total time spent providing and/or coordinating discharge services: DS: Data Data Completed and Pending Labs on day of discharge: Labs from last 24 hours 02/22/22 02/22/22 09:15 09:15 WBC 11.1 H RBC 4.03 L Hgb 12.3 Hct 36.1 L MCV 89.6 MCH 30.5 MCHC 34.1 RDW 13.2 Plt Count 449 H MPV 7.9 Immature Gran % (Auto) 0.5 Neut % (Auto) 61.9 Lymph % (Auto) 26.6 Dougherty % (Auto) 8.3 Eos % (Auto) 2.2 Baso % (Auto) 0.5 Lymph # (Auto) 2.96 Dougherty # (Auto) 0.9 H Eos # (Auto) 0.2 Baso # (Auto) 0.1 Abs Immat Gran (auto) 0.05 H Absolute Neuts (auto) 6.9 H Absolute Nucleated RBC 0.0 Nucleated RBC % 0.0 Sodium 132 L Potassium 4.5 Chloride 103 Carbon Dioxide 20 L Anion Gap 9 BUN 16 D Creatinine 0.70 Estim Creat Clear Calc 51 Estimated GFR > 60 Glucose 94 Calcium 8.8 Preliminary micro results at discharge 02/20/22 23:25 Blood Culture - Preliminary Blood 02/20/22 23:25 Blood Culture - Preliminary Blood Discharge Plan Discharge Patient Disposition: [facility] Long-Term/Asst Living Patient Instructions: Antibiotic Form Stand Alone Forms: General Discharge Information Discharge Medications: No Action omeprazole 20 mg capsule,delayed release(DR/EC) 20 mg feeding tube DAILY aspirin 81 mg Tablet,Chewable 81 mg feeding tube DAILY simethicone 80 mg Tablet,Chewable 80 mg feeding tube QID PRN (Reason: Gastric Reflux) acetaminophen 325 mg Tablet 325 mg feeding tube Q4HWA PRN (Reason: Pain) carvedilol 12.5 mg Tablet 12.5 mg feeding tube BID lisinopril 20 mg Tablet 20 mg feeding tube DAILY loperamide 2 mg Tablet 2 mg feeding tube QID PRN (Reason: Diarrhea) melatonin 3 mg Tablet 3 mg feeding tube HS folic acid 1 mg Tablet 1 mg feeding tube DAILY levetiracetam 750 mg Tablet 750 mg PO BID Rx Instructions: feeding tube lacosamide [Vimpat] 100 mg Tablet 100 mg feeding tube Q12H Date of admission: 02/20/22 23:57 Primary Care Provider: RodyTaiwo Admitting Provider: Denisha Qureshi V. Attending physician on admission: Denisha Qureshi V. Condition: Improved
[2022-02-23] MEDS: PANTOPRAZOLE 40 MG TABLET PO (08:56)
[2022-02-23] MEDS: LACOSAMIDE (*CRX) 100 MG TABLET FEED TUBE ×2 (08:56→20:46)
[2022-02-23] MEDS: FOLIC ACID 1 MG TABLET FEED TUBE (08:56)
[2022-02-23] MEDS: levETIRAcetam 250 MG TABLET 750 MG PO ×2 (08:56→20:46)
[2022-02-23] MEDS: ASPIRIN 81 MG CHEWABLE TABLET FEED TUBE (08:57)
[2022-02-23 15:09] VITALS: BP 115/61; PULSE 78; RESP 16; TEMP 36.5; O2SAT 95
[2022-02-23 20:43] VITALS: BP 97/58; PULSE 76; RESP 16; TEMP 36.6; O2SAT 99
[2022-02-23] MEDS: MELATONIN 3 MG TABLET FEED TUBE (20:46)
[2022-02-24 06:00] VITALS: BP 100/58; PULSE 72; RESP 16; TEMP 36.7; O2SAT 99
--- NOTE | 2022-02-24 07:43 | PM.DS ---
DS: Admitting Diagnosis Discharge Date 02/24/22 Admitting Diagnosis COVID19, UTI DS: Discharge Diagnosis Discharge Diagnosis (1) UTI (urinary tract infection): Code(s): N39.0 - Urinary tract infection, site not specified Status: Acute Assessment and Plan: UCX with no growth BCX NGTD. Patient was given 3 doses of ceftriaxone during hospitalizaton. Urine cultures grew nothing. (2) COVID: Code(s): U07.1 - COVID-19 Status: Acute Assessment and Plan: Adequate oxygen saturation on room air. Asymptomatic. Defer remdesivir and dexamethasone at this time as patient is asymptomatic. Patient initially presented with fever and chills, which were likely due to COVID19. She has remained on room air during the entire hospitalization. (3) Hypotension: Code(s): I95.9 - Hypotension, unspecified Status: Acute Assessment and Plan: Present at initial presentation. Will restart home lisinopril and carvedilol for discharge. (4) Acute kidney injury: Code(s): N17.9 - Acute kidney failure, unspecified Status: Acute Assessment and Plan: Creatinine elevated to 1.3 on admission. After hydration improved to 0.7. Resolved. (5) Hypoglycemia: Code(s): E16.2 - Hypoglycemia, unspecified Status: Acute Assessment and Plan: Resolved. (6) Protein calorie malnutrition: Code(s): E46 - Unspecified protein-calorie malnutrition Status: Acute Assessment and Plan: Appreciate recommendations from Dietary. G-tube currently not being used. (7) Status post CVA: Code(s): Z86.73 - Personal history of transient ischemic attack (TIA), and cerebral infarction without residual deficits Status: Acute Assessment and Plan: Limited mobility with left sided hemiparesis. Continue ASA. Would benefit from high intensity statin. (8) Problem with gastrostomy tube: Code(s): K94.20 - Gastrostomy complication, unspecified Status: Acute Assessment and Plan: Surrounding skin with maceration. Wound ostomy nursing recommended aloe vesta antifungal barrier cream. -Appreciate recommendations from Gastroenterology DS: Summary Hospital Course Reason for hospitalization: COVID19, UTI Hospital Course: 57F with a past medical history of hypertension, percutaneous gastrostomy tube and hemiplegia 2/2 to subdural hematoma after a surgical procedure who presented to the emergency department from her rehabilitation facility hypotensive, febrile and dehydrated. Patient was found to have COVID19 and urine had no nitrites, no leukocyte esterase but high number of WBCs. Ceftriaxone was given in the ED and continued on the floor due to the hypotension and concern for sepsis. Patient blood pressure improved. The patient never required supplemental oxygen and remained on room air during the entire hospitalization. The urine culture resulted with no growth. Blood cultures had no growth at the time of discharge. There was concern about maceration and leakage of fluid around the unused gastrostomy tube. Gastroenterology was consulted and recommended follow up out patient. The patient sometimes refuses food and on other days will eat. Nutrition will be assessed to see if the tube can be removed or needs exchange at the appointment with Gastroenterology. Patient expressed the desire to go to another facility, but due to having COVID19 there was not another facility that would accept her. Patient was discharged back to [facility]. Time Spent with Patient Time attestation: Total time spent providing and/or coordinating discharge services: Exam Narrative: GENERAL: NAD, cooperative HEENT: Normocephalic, atraumatic NECK: Supple CV: Normal S1, S2, RRR, No MRG RESP: CTAB, Normal work of breathing. Abdomen: Soft, non-tender, non-distended, g tube dressing c/d/i EXTREMITIES: Warm and well perfused, no clubbing, cyanosis, o
[2022-02-24] MEDS: ASPIRIN 81 MG CHEWABLE TABLET FEED TUBE (08:48)
[2022-02-24] MEDS: FOLIC ACID 1 MG TABLET FEED TUBE (08:48)
[2022-02-24] MEDS: PANTOPRAZOLE 40 MG TABLET PO (08:48)
[2022-02-24] MEDS: levETIRAcetam 250 MG TABLET 750 MG PO (08:48)
[2022-02-24] MEDS: LACOSAMIDE (*CRX) 100 MG TABLET FEED TUBE (08:50)
--- NOTE | 2022-02-24 13:38 | WPDGICN ---
Assessment and Plan Assessment and plan (1) Problem with gastrostomy tube: Code(s): K94.20 - Gastrostomy complication, unspecified Status: Acute Assessment and Plan: short G-tube and 16Fr (placed by radiology?) try to keep site dry, agree with wound care to apply antifungal barrier cream and zinc she has not been using g-tube if appropriate oral intake then I would like to see her in office in about 3-4 weeks to reassess and consider to remove G-tube, if still only partial oral intake requiring use of G-tube then probably I can replace it at bedside with 20Fr size if still similar erythema and drainge (2) COVID: Code(s): U07.1 - COVID-19 Status: Acute Assessment and Plan: by primary (3) Status post CVA: Code(s): Z86.73 - Personal history of transient ischemic attack (TIA), and cerebral infarction without residual deficits Status: Acute Assessment and Plan: no new events (4) Protein calorie malnutrition: Code(s): E46 - Unspecified protein-calorie malnutrition Status: Acute GI Consult Note Consult date/time: 02/24/22 13:38 Reason for consult: malfuntioning G-tube HPI: Martina Figueroa is a 57 year old female with past medical history significant for subdural hematoma post surgical procedure, left-sided hemiplegia with PEG placement earlier this year at outside hospital, hypertension.? Patient is currently residing at rehabilitation facility and was originally admitted for chills and fever, found to have COVID-19 days ago and also report of poor per orally intake. CXR no obvious pneumonia. I was called because noted some gastric content from G-tube and surrounding skin with maceration. RN told me that she has not been using her G-tube anymore and only on oral diet, apparently tolerating. [facility] Review of Systems Review of Systems: Chills, poor appetite, low blood pressures. Constitutional: Constitutional: Reports chills and Reports poor appetite Eyes: Eyes: Denies change in vision ENT: Denies dysphagia, Denies vertigo, Denies dizziness and Denies odynophagia Cardiovascular: Cardiovascular: Denies chest pain and Denies claudication Respiratory: Respiratory: Denies chest congestion Gastrointestinal: Gastrointestinal: Denies abdominal pain and Denies diarrhea Genitourinary: Genitourinary: Denies dysuria Musculoskeletal: Musculoskeletal: Denies arthralgias Integumentary/Breasts: Skin/Breast: Denies rash Neurologic: Reports other (Left hemiplegia) Psychiatric: Psychiatric: Reports no additional psychiatric complaints and Reports as per HPI Endocrine: Endocrine: Denies cold intolerance, Denies fatigue, Denies flushing, Denies heat intolerance, Denies polyphagia, Denies polydipsia and Denies palpitations Hematologic/Lymphatic: Hematologic/Lymphatic: Reports no additional hematologic/lymphatic complaints and Reports as per HPI Allergic/Immunologic: Allergic/Immunologic: Reports no additional allergic/immunologic complaints and Reports as per HPI PMFSH Past Medical History Medical History COVID CVA (cerebral vascular accident) Family History Family History (Updated 02/21/22 @ 01:21 by Keaton Estrada RN) Mother Cerebrovascular accident Father Cerebrovascular accident Social History Social History Smoking status: Former smoker Tobacco type: cigarettes Alcohol intake: never Substance use: never Substance use type: does not use Additional living arrangements comments: Currently in a rehab facility Spiritual care concerns: No Meds Home Medications and Allergies Home Medications Medication Instructions Recorded Confirmed Type acetaminophen 325 mg tablet 325 mg feeding tube Q4HWA PRN Pain 10/21/21 02/21/22 History carvedilol 12.5 mg tablet 12.5 mg feeding tube BID
--- NOTE | 2022-02-24 13:46 | PCNFU ---
Nutrition Follow-Up Complete: Inadequate Oral Intake as related to COVID pneumonia as evidenced by poor po intake reported. Goal: Meet estimated nutritional needs. Patient has limited progress towards goal. We will continue current goal. Pt current nutrition is Minced and Moist, Level 5/2 gm Na. Last recorded weight is 42.8 kg-no new weight reported. Bowel Motility: +Bm reported 02/23 Labs Reviewed:Na 132, Hct 36.1 Meds Noted:Keppra,Protonix, Vimpat, Folic Acid Skin: maceration-abdomen. Additional Notes: Spoke with nursing today due to COVID precautions. Oral Intake remains poor. Patient has been able to consume: puddings, applesauce and drinking ensure diet supplements. Nutritional Ice cream added today for additional 300 kcals and 9 gms protein. GI consult for PEG. No plans to use PEG at this time. Plan is to be discharged back to [place]. Monitoring: Will monitor every 3 days.
[2022-02-24 14:00] VITALS: BP 119/106; PULSE 96; RESP 18; TEMP 37; O2SAT 99
== END 2022-02-24 17:55 ==
LOC: ANHED 02-21 → ANH3MED 02-21 01:13
PROVIDERS: Admitting Provider Internal Medicine; Emergency Provider Emergency Medicine; PCP Internal Medicine; Visit Provider Family Medicine
DX: N39.0 Urinary tract infection, site not specified (principal); U07.1 COVID-19; I95.9 Hypotension, unspecified; N17.9 Acute kidney failure, unspecified; K94.29 Other complications of gastrostomy; I69.354 Hemiplegia and hemiparesis following cerebral infarction affecting left non-dominant side; E16.2 Hypoglycemia, unspecified; I10 Essential (primary) hypertension; E46 Unspecified protein-calorie malnutrition; Z68.1 Body mass index [BMI] 19.9 or less, adult; Z87.891 Personal history of nicotine dependence; Z79.01 Long term (current) use of anticoagulants; Z79.82 Long term (current) use of aspirin
CPT/HCPCS: 36415; 51701; 71045; 80048; 80053; 81001; 82948; 83605; 85025; 87040; 87086; 93005; 96360; 96361; 96365; 96366; 96374; 99285; A9270; C9803; G0378; G0379; J0696; J7030; J7050; U0003; U0005

== ENCOUNTER 2022-02-27 16:40 | Emergency (ER) | payer OTHER, SELFPAY ==
[2022-02-27] VITALS (49 sets, daily range): BP systolic 84–127; BP diastolic 47–84; PULSE 16–72; RESP 11–22; TEMP 36.3; O2SAT 73–100
--- NOTE | ~2022-02-27 | CT_ITS ---
EXAMINATION: CT brain wo con DATE: 02/27/2022 17:41 INDICATION: ams . TECHNIQUE: Computed tomography (CT) of the head was performed without intravenous contrast. The mA wa s adjusted according to patient size. Iterative reconstruction technique was employed. The dose-lengt h product was 605.33 mGy-cm. COMPARISON: 10/21/2021. FINDINGS: No acute intracranial hemorrhage or extra-axial fluid collection. No hydrocephalus, mass, or herniation. No acute ischemic infarct. Unremarkable dural venous sinus attenuation. No acute osseous abnormality. Aerated secretions and air-fluid levels in the medullary sinuses, otherwise the aerated spaces are cl ear. Right frontotemporal parietal craniotomy defect. Decreased size of the subjacent extra-axial collecti on. Persistent predominantly white matter hypodensity in the posterior frontal interval increasing en cephalomalacia. Moderate atrophy and chronic white matter change. Atherosclerotic intracranial calcif ications. IMPRESSION: No acute intracranial process. Maxillary sinus findings may reflect acute sinusitis in the appropriat e clinical context. Reviewed, dictated and finalized at location [facility]. IMPRESSION: No acute intracranial process. Maxillary sinus findings may reflect acute sinus itis in the appropriate clinical context.
--- NOTE | ~2022-02-27 | XR_ITS ---
EXAMINATION: XR chest 1V portable Exam Date/Time: 02/27/2022 17:05 CDT HISTORY: ams, HX CVA. HX HTN, NO CARDIAC HX Comparison: 02/20/2022. RESULT: Lines, tubes, and devices: None. Lungs and pleura: Senescent and emphysematous change, biapical pleural scarring, otherwise clear. Cardiomediastinal silhouette: Stable cardiomediastinal silhouette. Other: No acute osseous or upper abdominal finding. IMPRESSION: No acute cardiopulmonary process. Reviewed, dictated and finalized at location K.
--- NOTE | 2022-02-27 16:55 | ECG_ITS ---
Measurements Intervals [place] Rate: 66 P: 67 MO: 164 QRS: 80 QRSD: 80 T: 74 QT: 354 QTc: 371 Interpretive Statements SINUS RHYTHM WITHIN NORMAL LIMITS COMPARED TO ECG 02/20/2022 22:39:16 BASELINE ARTIFACT HAS RESOLVED AND THIS TRACING IS NOT SUGGESTIVE PREVIOUS ANTEROSEPTAL Electronically Signed On 02-28-2022 7:16:31 CDT by Eliot Saucedo M.D.
[2022-02-27 17:12] LABS: Glucose Point of Care 99 mg/dl (65-105)
--- NOTE | 2022-02-27 17:25 | ED.GENADULT ---
HPI - General Adult General Chief complaint: Anxiety Stated complaint: Anxiety Time Seen by Provider: 02/27/22 16:50 Source: RN notes reviewed History of Present Illness HPI narrative: Patient presents emergency department from [facility] via EMS for anxiety. History is per the patient as well as EMS crew. EMS crew states that they were called out for the patient secondary to possible strokelike symptoms. They state when they arrived they found the patient anxious in her room patient was stating that she did not want to be at the facility the patient was ANO x4 she has a history of residual left-sided deficits from intracranial hemorrhage earlier this year the patient had a negative stroke scale at that time outside of residual deficits as transfer to the emergency department for further evaluation patient is currently awake and alert x4 in the room she does state that she has felt mildly confused but states she was increasingly anxious today as she feels that her care she is receiving at her current facility is mediocre at best patient denies any recent illness she denies any fevers or chills chest pain shortness of breath abdominal pain nausea vomiting or any other symptoms Related Data Home Medications Medication Instructions Recorded Confirmed acetaminophen 325 mg tablet 325 mg feeding tube Q4HWA PRN Pain 10/21/21 02/21/22 carvedilol 12.5 mg tablet 12.5 mg feeding tube BID 10/21/21 02/21/22 folic acid 1 mg tablet 1 mg feeding tube DAILY 10/21/21 02/21/22 lacosamide 100 mg tablet (Vimpat) 100 mg feeding tube Q12H 10/21/21 02/21/22 levetiracetam 750 mg tablet 750 mg PO BID 10/21/21 02/21/22 lisinopril 20 mg tablet 20 mg feeding tube DAILY 10/21/21 02/21/22 loperamide 2 mg tablet 2 mg feeding tube QID PRN Diarrhea 10/21/21 02/21/22 melatonin 3 mg tablet 3 mg feeding tube HS 10/21/21 02/21/22 aspirin 81 mg chewable tablet 81 mg feeding tube DAILY 02/21/22 02/21/22 omeprazole 20 mg capsule,delayed 20 mg feeding tube DAILY 02/21/22 02/21/22 release simethicone 80 mg chewable tablet 80 mg feeding tube QID PRN Gastric 02/21/22 02/21/22 Reflux Allergies Allergy/AdvReac Type Severity Reaction Status Date / Time No Known Allergies Allergy Unknown Verified 02/20/22 21:57 Review of Systems Review of Systems: Gen.: Denies fevers or chills Eyes: Denies eye pain or visual change ENT: Denies congestion Respiratory: Denies shortness of breath or cough CV: Denies chest pain or palpitations GI: Denies abdominal pain nausea, emesis or diarrhea Musculoskeletal: Denies back pain or muscle pain Neuro: Chronic left-sided weakness Skin: Denies rash Except as documented, all other systems reviewed and negative [facility] Past Medical History Medical History COVID CVA (cerebral vascular accident) Family History Family History (Updated 02/21/22 @ 01:21 by Keaton Estrada RN) Mother Cerebrovascular accident Father Cerebrovascular accident Social History Social History Smoking status: Former smoker Tobacco type: cigarettes Alcohol intake: never Substance use: never Substance use type: does not use Additional living arrangements comments: Currently in a rehab facility Spiritual care concerns: No Exam Narrative: APPEARANCE: No acute distress, nontoxic, resting in bed EYES: PERRL HEENT: Normocephalic, atraumatic, OMM RESPIRATORY: No respiratory distress Clear to auscultation bilaterally with no rhonchi wheezing or rales. CARDIOVASCULAR: Regular rate and rhythm without murmurs rubs or gallops. ABDOMINAL: Soft, nontender, nondistended, no rebound or guarding MUSCULOSKELETAl: Moves all extremities. No clubbing, cyanosis or edema. NEURO: Awake and alert x 4. Following commands, speech normal, left-sided hemiparesis muscle strength out of 5 in the right upper extremity right lower extremity SKIN:: Warm, dry. No rashes le
[2022-02-27] MEDS: SODIUM CHLORIDE 0.9% IV 1,000 ML 999 ML IV CONT (17:34)
[2022-02-27 17:36] LABS: Basophils Absolute Auto 0.1 K/mm3 (0.0-0.1); Basophils Percent Auto 0.7 % (0.2-1.2); Eosinophils Absolute Auto 0.2 K/mm3 (0-0.3); Eosinophils Percent Auto 1.8 % (0-4.4); Hemoglobin 10.5 g/dL (12.0-15.0); Immature Granulocyte Absolute 0.02 K/mm3 (0.00-0.031); Immature Granulocyte Percent A 0.2 % (0-0.5); Lymphocytes Absolute Auto 3.55 K/mm3 (0.9-3.2); Mean Corpuscular HGB Conc 32.8 g/dl (32-36); Mean Corpuscular Hemoglobin 30.8 pg (26-34); Mean Corpuscular Volume 93.8 fl (80-100); Mean Platelet Volume 8.1 fl (7.4-10.4); Monocytes Absolute Auto 0.8 K/mm3 (0.1-0.6); Monocytes Percent Auto 8.9 % (2.6-8.5); Neutrophils Absolute Auto 4.7 K/mm3 (1.3-6.7); Neutrophils Percent Auto 50.4 % (45.5-73.1); Platelet Count Result 478 k/mm3 (150-375); Red Blood Count 3.41 M/mm3 (4.2-5.4); Red Cell Distribution Width 13.3 % (11.5-14.5); White Blood Count 9.4 K/mm3 (4.5-10.0)
[2022-02-27 17:44] LABS: Partial Thromboplastin Time 24.1 SECONDS (22.3-36.8); Prothrombin Time 12.8 Seconds (11.1-14.7)
[2022-02-27 17:45] LABS: Alanine Aminotransferase 15 U/L (6-35); Albumin Level 3.6 g/dL (3.5-5.1); Alkaline Phosphatase 56 U/L (38-126); Anion Gap 6 mmol/L (8-16); Aspartate Amino Transferase 25 U/L (14-36); Bilirubin,Total 0.1 mg/dL (0.2-1.3); Blood Urea Nitrogen 12 mg/dL (7-17); Calcium 8.6 mg/dL (8.4-10.2); Carbon Dioxide 25 mmol/L (22-30); Chloride 103 mmol/L (98-107); Estimated Glomerular Filt Rate > 60; Glucose 86 mg/dL (65-110); Potassium 4.5 mmol/L (3.4-5.0); Sodium 134 mmol/L (137-145)
[2022-02-27 17:56] LABS: Troponin I < 0.012 ng/mL (0.000-0.034)
[2022-02-27 19:06] LABS: Appearance Urine Clear (Clear); Bilirubin Urine 1+ (Negative); Blood Urine Negative (Negative); Color Urine Yellow (Yellow); Glucose Urine UA Negative (Negative); Ketones Urine Trace mg/dL (Negative); Leukocyte Esterase Ur Negative LEU/UL (Negative); Nitrate Urine Negative (Negative); Protein Urine Negative (Negative); Urobilinogen Urine 0.2 mg/dL (<2.0); pH Urine 6.5 (5.0-9.0)
[2022-02-27 19:14] LABS: Mucus Urine Rare /lpf; Squamous Epithelial Cell Urine Rare /hpf (Few); WBC Urine 0-3 /hpf
[2022-02-27 19:17] LABS: Add Urine Microscopic? YES
--- NOTE | 2022-02-27 21:33 | PC.NURSE ---
Called [facility] to give report on patient, was told to call back later.
--- NOTE | 2022-02-27 21:46 | PC.NURSE ---
Called Report to Maximino to [facility] DENIS at this time.
== END 2022-02-27 23:19 ==
PROVIDERS: Emergency Provider Emergency Medicine; PCP Internal Medicine
DX: F41.9 Anxiety disorder, unspecified (principal); Z79.82 Long term (current) use of aspirin; Z86.73 Personal history of transient ischemic attack (TIA), and cerebral infarction without residual deficits; Z86.16 Personal history of COVID-19; Z87.891 Personal history of nicotine dependence
CPT/HCPCS: 36415; 70450; 71045; 80053; 81001; 82948; 84484; 85025; 85610; 85730; 93005; 96360; 99284; J7030

== ENCOUNTER 2022-08-16 09:08 | Inpatient (IN) | payer OTHER, SELFPAY ==
[2022-08-16] VITALS (15 sets, daily range): BP systolic 90–128; BP diastolic 51–70; PULSE 57–74; RESP 11–18; TEMP 36.4–37; O2SAT 98–100; BMI 20.9
--- NOTE | ~2022-08-16 | CT_ITS ---
CT head without contrast Indication: Lethargy, unresponsive, mental status change COMPARISON: 02/27/2022 Technique: Serial scans were obtained through the brain without the administration of contrast. Dose reduction technique was used on this scan by utilizing automated exposure control and iterative recon struction technique. The dose-length product (DLP) was 605.33 mGy-cm. Findings: There is no evidence of intracranial hemorrhage, mass lesion, or acute infarct. The ventri cles and subarachnoid spaces are dilated, consistent with minimal atrophy. There is chronic encephalo malacia in the right frontal lobe with overlying right frontal craniotomy change. Low attenuation reg ions are seen within the periventricular white matter bilaterally, likely representing changes from c hronic microvascular ischemic disease. There is no evidence of edema, mass effect or midline shift. The visualized paranasal sinuses and mastoid air cells are clear. Impression: No intracranial hemorrhage, mass, or acute infarct. Chronic right frontal lobe encephalomalacia with overlying right frontal craniotomy. Atrophy and chronic white matter changes, as above. Reviewed, dictated and finalized at location [] NING EXECUTIVE Impression: No intracranial hemorrhage, mass, or acute infarct. Chronic right frontal lobe encephalomalacia with overlying right frontal cranio daljit. Atrophy and chronic white matter changes, as above.
--- NOTE | ~2022-08-16 | XR_ITS ---
AP view of the pelvis and AP and lateral views of the left hip Clinical history: Pain Findings: No acute fracture or dislocation is seen. Osseous alignment is anatomic. Bilateral hip and SI joint spaces are preserved. Soft tissues are unremarkable. Impression: No significant abnormality is seen. Reviewed, dictated and finalized at location [] SPECIALIST Impression: No significant abnormality is seen.
--- NOTE | ~2022-08-16 | MR_ITS ---
EXAMINATION: MR brain/brain stem wo/w con DATE: 08/17/2022 16:40 INDICATION: facial droop, aphasia, AMS, H/O hemorrhagic stroke TECHNIQUE: Magnetic resonance imaging (MRI) of the brain and brainstem was performed without intraven ous contrast. Sequences included sagittal and axial T1-weighted SE, axial diffusion-weighted FS EPI A SSET, axial T2*-weighted GRE, axial T2-weighted FLAIR Propeller, and axial T2-weighted Propeller. Pos tcontrast axial and coronal T1-weighted SE was obtained. Apparent diffusion coefficient (ADC) maps we re created. COMPARISON: CT brain 08/16/2022, 02/27/2022, and 10/21/2021. FINDINGS: Prior right frontotemporal parietal craniotomy. Right posterior frontal and parietal encephalomalacia with ex vacuo dilatation of the right lateral ventricle. Linear areas of restricted diffusion along the anterior and posterior margins of the right posterior frontal and right parietal lobe encephaloma lacia, representing hyperacute infarct. Small 8 mm focus of enhancement along the posterior aspect of the encephalomalacia cavity with linear areas of T2 and FLAIR hyperintensity along the anterior and posterior margins of the cavity, deep to the areas of hyperacute infarct, may represent small foci of acute infarct versus persistent chronic infarct change. No MRI evidence of acute hemorrhage or acute extra-axial collection. Foci of susceptibility artifact in the right posterior frontal lobe and righ t parietal lobe in the right temporoparietal extra-axial space, likely related to the history of hemo rrhagic stroke, prior right extra-axial hemorrhage, and/or post surgical change. Moderate patchy whit e matter hyperintensity, likely representing moderate small vessel ischemic disease. Mild generalized parenchymal volume loss. The basilar cisterns are patent. Flow voids are preserved. Paranasal sinuse s are within normal limits. Globes and orbital contents are within normal limits. IMPRESSION: 1. Small areas of hyperacute infarct progression adjacent to the chronic infarct changes in the right posterior frontal/right parietal lobes. 2. Focal, 8 mm posterior enhancement with linear T2/FLAIR hyperintensity bordering the right posterio r frontal and parietal encephalomalacia, likely representing persistent chronic infarct change versus acute on chronic infarct progression. 3. Consider follow-up MR of the brain with contrast in 12 weeks to confirm resolution of the focal en hancement. Results reported telephonically to Mis Packer RN by Dr. Alberts at 5:05 PM on 08/17/2022. Reviewed, dictated and finalized at location K. 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 Small areas of hyperacute infarct progression adjacent to the chronic infarc t changes in the right posterior frontal/right parietal lobes. 2. Focal, 8 mm posterior enhancement with linear T2/FLAIR hyperintensity border ing the right posterior frontal and parietal encephalomalacia, likely represent ing persistent chronic infarct change versus acute on chronic infarct progressi on. 3. Consider follow-up MR of the brain with contrast in 12 weeks to confirm reso lution of the focal enhancement. Results reported telephonically to Mis Packer RN by Dr. Alberts at 5:05 PM on 08/17/2022.
--- NOTE | ~2022-08-16 | XR_ITS ---
EXAMINATION: XR chest 1V INDICATION: Transient alteration of awareness TECHNIQUE: AP view of the chest is obtained. COMPARISON: 02/27/2022 FINDINGS: The lungs are free of acute opacities. No pleural effusion or pneumothorax. The cardiomedia stinal silhouette is normal. IMPRESSION: 1. No acute cardiopulmonary abnormality. Reviewed, dictated and finalized at location A. OSAL REP
--- NOTE | 2022-08-16 09:14 | ECG_ITS ---
Measurements Intervals Vida Rate: 54 P: 48 MA: 165 QRS: 67 QRSD: 102 T: 60 QT: 412 QTc: 394 Interpretive Statements SINUS BRADYCARDIA BASELINE ARTIFACT PRESENT COMPARED TO ECG 02/27/2022 17:20:23 SINUS BRADYCARDIA NOW PRESENT Electronically Signed On 08-16-2022 16:31:37 [employer]REL LATHE OPERATOR OUTSIDE by Travis Espinosa M.D.
--- NOTE | 2022-08-16 09:35 | ED.SYNCOPE ---
HPI - Syncope General Chief Complaint: Neuro Symptoms/Deficit <Amy Bianchi PA-C - Last Filed: 08/16/22 12:35> Stated Complaint: SUDDEN ONSET LETHARGIC, NOW A+O X 4 <Amy Bianchi PA-C - Last Filed: 08/16/22 12:35> Time Seen by Provider: 08/16/22 09:13 <LILLI Godoy Last Filed: 08/16/22 12:35> Source: patient and EMS <LILLI Godoy Last Filed: 08/16/22 12:35> Mode of arrival: EMS <LILLI Godoy Last Filed: 08/16/22 12:35> Limitations: no limitations <LILLI Godoy Last Filed: 08/16/22 12:35> History of Present Illness HPI narrative: This is a 57 year old female that presents to the ER for a syncopal episode today. Patient reports she was at breakfast and started to feel woozy and lightheaded. Reports her vision went blurry. She was taken back to her room and laid down. She does not believe she actually passed out. She reports this happened just prior to arrival. Reports she feels back to baseline now, other than she feels like her left sided facial droop has worsened. She has history of residual left sided weakness due to stroke earlier this year. She reports that she has had a cough the last week and some diarrhea the last couple of days. Denies fever, chest pain, shortness of breath, palpitations, abdominal pain, vomiting, or dysuria. <Amy Bianchi PA-C - Last Filed: 08/16/22 12:35> Related Data Home Medications: Home Medications Medication Instructions Recorded Confirmed acetaminophen 325 mg tablet 325 mg feeding tube Q4HWA PRN Pain 10/21/21 02/21/22 carvedilol 12.5 mg tablet 12.5 mg feeding tube BID 10/21/21 02/21/22 folic acid 1 mg tablet 1 mg feeding tube DAILY 10/21/21 02/21/22 lacosamide 100 mg tablet (Vimpat) 100 mg feeding tube Q12H 10/21/21 02/21/22 levetiracetam 750 mg tablet 750 mg PO BID 10/21/21 02/21/22 lisinopril 20 mg tablet 20 mg feeding tube DAILY 10/21/21 02/21/22 loperamide 2 mg tablet 2 mg feeding tube QID PRN Diarrhea 10/21/21 02/21/22 melatonin 3 mg tablet 3 mg feeding tube HS 10/21/21 02/21/22 aspirin 81 mg chewable tablet 81 mg feeding tube DAILY 02/21/22 02/21/22 omeprazole 20 mg capsule,delayed 20 mg feeding tube DAILY 02/21/22 02/21/22 release simethicone 80 mg chewable tablet 80 mg feeding tube QID PRN Gastric 02/21/22 02/21/22 Reflux <Amy Bianchi PA-C - Last Filed: 08/16/22 12:35> Allergies/Adverse Reactions: Allergies Allergy/AdvReac Type Severity Reaction Status Date / Time No Known Allergies Allergy Unknown Verified 08/16/22 15:24 <Amy Bianchi PA-C - Last Filed: 08/16/22 12:35> Review of Systems Review of Systems: CONSTITUTIONAL: Denies fever EYES: Reports visual changes ENT: Reports congestion CARDIOVASCULAR: Denies chest pain, palpitations, or edema. RESPIRATORY: Reports cough. Denies dyspnea. GASTROINTESTINAL: Reports diarrhea. Denies abdominal pain, nausea, vomiting GENITOURINARY: Denies dysuria SKIN: Denies rash NEUROLOGIC: Reports chronic left sided numbness, and weakness. PSYCHIATRIC: Reports anxiety <Amy Bianchi PA-C - Last Filed: 08/16/22 12:35> All systems reviewed & are unremarkable except as noted in HPI and below <Amy Bianchi PA-C - Last Filed: 08/16/22 12:35> [facility] Past Medical History Medical History: Medical History (Updated 08/16/22 @ 13:52 by Felicia Case PA-C) Chronic anemia Chronic hyponatremia Chronic kidney disease, stage 3 Combined systolic and diastolic congestive heart failure Hemorrhagic stroke Limited mobility with left hemiparesis. Dysphagia improved, G-tube out. Hypertension Kidney stones Seizure disorder <Amy Bianchi PA-C - Last Filed: 08/16/22 12:35> Surgical History Surgical History: Surgical History (Updated 08/16/22 @ 13:43 by Felicia Case PA-C) History of craniotomy History of cystoscopy (12/2004) History of gastrostomy tube placement Removed 08/04/2022. History of ur
[2022-08-16 09:36] LABS: Basophils Absolute Auto 0.1 K/mm3 (0.0-0.1); Basophils Percent Auto 1.3 % (0.2-1.2); Eosinophils Absolute Auto 0.4 K/mm3 (0-0.3); Eosinophils Percent Auto 5.5 % (0-4.4); Hematocrit 31.7 % (37.0-47.0); Hemoglobin 10.9 g/dL (12.0-15.0); Immature Granulocyte Absolute 0.03 K/mm3 (0.00-0.031); Immature Granulocyte Percent A 0.4 % (0-0.5); Lymphocytes Absolute Auto 2.09 K/mm3 (0.9-3.2); Lymphocytes Percent Auto 29.4 % (18.3-44.2); Mean Corpuscular HGB Conc 34.4 g/dl (32-36); Mean Corpuscular Hemoglobin 30.7 pg (26-34); Mean Corpuscular Volume 89.3 fl (80-100); Mean Platelet Volume 8.9 fl (7.4-10.4); Monocytes Absolute Auto 0.9 K/mm3 (0.1-0.6); Monocytes Percent Auto 11.9 % (2.6-8.5); Neutrophils Absolute Auto 3.7 K/mm3 (1.3-6.7); Neutrophils Percent Auto 51.5 % (45.5-73.1); Platelet Count Result 320 k/mm3 (150-375); Red Blood Count 3.55 M/mm3 (4.2-5.4); Red Cell Distribution Width 12.3 % (11.5-14.5); White Blood Count 7.1 K/mm3 (4.5-10.0)
[2022-08-16 09:36] LABS: Glucose Point of Care 74 mg/dl (65-105)
[2022-08-16 09:45] LABS: Alanine Aminotransferase 17 U/L (6-35); Albumin Level 3.9 g/dL (3.5-5.1); Alkaline Phosphatase 74 U/L (38-126); Anion Gap 5 mmol/L (8-16); Aspartate Amino Transferase 25 U/L (14-36); Bilirubin,Total 0.4 mg/dL (0.2-1.3); Blood Urea Nitrogen 7 mg/dL (7-17); Calcium 8.7 mg/dL (8.4-10.2); Carbon Dioxide 26 mmol/L (22-30); Chloride 91 mmol/L (98-107); Estimated CRCL calculation 54 ml/min; Estimated Glomerular Filt Rate > 60; Glucose 97 mg/dL (65-110); Potassium 4.6 mmol/L (3.4-5.0); Sodium 122 mmol/L (137-145)
[2022-08-16 09:47] LABS: Prothrombin Time 12.9 Seconds (11.1-14.7)
[2022-08-16 09:57] LABS: Troponin I < 0.012 ng/mL (0.000-0.034)
[2022-08-16] MEDS: SODIUM CHLORIDE 0.9% IV 1,000 ML 999 ML IV CONT (10:06)
[2022-08-16 11:21] LABS: Influenza A QL RT-PCR Negative (Negative); Influenza B QL RT-PCR Negative (Negative); SARS-CoV-2 RNA PCR Negative
[2022-08-16 12:02] LABS: Add Urine Microscopic? YES; Appearance Urine Clear (Clear); Bilirubin Urine Negative (Negative); Blood Urine Negative (Negative); Color Urine Light Yellow (Yellow); Glucose Urine UA Negative (Negative); Ketones Urine Negative (Negative); Leukocyte Esterase Ur 2+ LEU/UL (Negative); Nitrate Urine Negative (Negative); Protein Urine Negative (Negative); Specific Grav Ur <= 1.005 (1.001-1.035); Urobilinogen Urine 0.2 mg/dL (<2.0)
[2022-08-16 12:12] LABS: Mucus Urine Rare /lpf; RBC Urine 0-2 /hpf (0-2); WBC Urine 16-20 /hpf
--- NOTE | 2022-08-16 13:49 | ECHO_ITS ---
Patient Info Name: Martina Figueroa Age: 57 years : 1965 Gender: Female Ht: 60 in Wt: 116 lbs BSA: 1.50 m2 HR: 60 bpm BP: 105 / 56 mmHg Heart Rhythm: Sinus Rhythm Technical Quality: Fair Exam Date: 08/16/2022 4:17 PM Exam Location: [facility] Patient Status: Outpatient Admit Date: 08/16/2022 Staff Ordering Physician: Felicia Case PA-C Copyist: Radha Salcido RDCS Attending Provider: Babak Sheriff MD Referring Physician: Manpreet HARRISON; Exam Type: CA echo doppler color flow Study Info Indications - hypertension - Near syncope, chf, Complete two-dimensional, color flow and Doppler transthoracic echocardiogram is performed. Summary 1. Complete two-dimensional, color flow and Doppler transthoracic echocardiogram is performed. 2. Normal left ventricular size and thickness. Normal left ventricular contractility, with no segmental wall motion abnormalities. Ejection fraction 65-70%. Grade 3 diastolic dysfunction is present. 3. There is mild tricuspid valve regurgitation. 4. Mild pulmonary hypertension, estimated pulmonary arterial systolic pressure is 36 mmHg. 5. Normal sinus rhythm. Left Ventricle Left ventricular chamber dimension is normal. Left ventricular systolic function is normal, estimated at 65-70%. There is no increased left ventricular wall thickness. Left ventricular septal wall motion is normal. The left ventricular diastolic function is grade III diastolic dysfunction. Right Ventricle Right ventricular chamber dimension is normal. Right ventricular systolic function is normal. Left Atria Left atrial chamber dimension is normal. Right Atria Right atrial chamber dimension is normal. Aortic Valve The aortic valve is trileaflet. There is mild aortic valve sclerosis. There is no aortic valve stenosis. There is no aortic valve regurgitation. Pulmonic Valve The pulmonic valve is normal. There is no pulmonic valve stenosis. There is no pulmonic regurgitation. Mitral Valve The mitral valve has normal leaflets. There is no mitral valve stenosis. There is no mitral valve regurgitation. Tricuspid Valve The tricuspid valve leaflets are normal. There is no significant tricuspid valve stenosis. There is mild tricuspid valve regurgitation. Mild pulmonary hypertension, estimated pulmonary arterial systolic pressure is 36 mmHg. Pericardium/Pleural The pericardium appears normal. There is no pericardial effusion. Inferior Vena Cava Normal inferior vena cava with >50% collapse upon inspiration consistent with Empty right atrial pressure, 10 mmHg. Aorta The aortic root size at the sinus of Valsalva is normal. The prox ascending aorta size is normal. Left Ventricular Outflow Tract Name Value Normal LVOT 2D LVOT Diameter 2.0 cm LVOT Doppler LVOT Peak Gradient 3 mmHg LVOT Mean Gradient 1 mmHg LVOT VTI 20 cm LVOT VTI/AV VTI Ratio 0.8 LVOT Stroke Volume 64 ml
--- NOTE | 2022-08-16 14:00 | PM.IMHP ---
H&P: HPI History of Present Illness Date/Time: 08/16/22 14:00 Chief Complaint: Unresponsive episode. Narrative: This is a very pleasant 57-year-old female with history of hemorrhagic stroke, seizures, hypertension, GERD, and chronic kidney disease who presented to the emergency department for evaluation of an unresponsive episode. She felt fine when she got up this morning and not long after eating breakfast she began to feel ?woozy? with double vision, brain fog, lightheadedness, and weakness. Staff noted that she was pale and diaphoretic and they helped her to her bed. At that time she apparently was briefly unresponsive however the patient herself does not think she lost consciousness. On EMS arrival she was noted to have a left-sided mouth droop which apparently seemed to be worse than usual. She has not noticed any worsening her chronic deficits from previous CVA and denies current visual changes, lightheadedness, vertigo, pleuritic pain, palpitations, and chest discomfort. Blood pressures were soft on arrival but have responded to IV fluids. Workup was significant for acute on chronic hyponatremia; brain CT did not show any acute findings. With further questioning she has had multiple loose stools a day for the last several days and she feels a bit weaker than normal. She has not had any signs specific urinary symptoms. She also denies fever, chills, sweats, and vomiting. She had a cough last week but that seems to be improving. She is being admitted in this setting for IV fluid rehydration and close monitoring. Review of Systems Review of Systems: Twelve systems were reviewed and are negative except for as per HPI. [facility] Past Medical History Medical History (Updated 08/16/22 @ 22:42 by Felicia Case PA-C) Chronic anemia Chronic hyponatremia Chronic kidney disease, stage 3 Combined systolic and diastolic congestive heart failure Poorly documented in chart. 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 Dysphagia improved, G-tube out. Hypertension Kidney stones Seizure disorder Surgical History Surgical History (Updated 08/16/22 @ 13:43 by Felicia Case PA-C) History of craniotomy History of cystoscopy (12/2004) History of gastrostomy tube placement Removed 08/04/2022. History of ureter stent (12/2004) Family History Family History (Updated 08/16/22 @ 15:19 by Mis Packer RN) Mother Alzheimer's dementia A-fib Father Cerebrovascular accident Social History Social History (Updated 08/16/22 @ 13:44 by Felicia Case PA-C) Social History: Surrogate medical decision maker: Shyam Figueroa, daughter. Code status: Full code. Smoking status: Never smoker Tobacco type: cigarettes Alcohol intake: former Drinks per week: 2 Substance use: former Substance use type: marijuana Last use: 09/24/21 Lack of Transportation: No Lack of Food: Never True Current Housing: I Have Housing Concerned About Future Housing: No Difficulty Paying Gas/Electric Bills: No Difficulty Paying for Meds: No Currently Unemployed: No Education: High School Diploma/GED Difficulty w/ Childcare or Family Care: No Spiritual care concerns: No Meds Home Medications and Allergies Home Medications Medication Instructions Recorded Confirmed Type acetaminophen 325 mg tablet 325 mg PO Q4H PRN Pain 10/21/21 08/16/22 History carvedilol 12.5 mg tablet 12.5 mg PO BID 10/21/21 08/16/22 History folic acid 1 mg tablet 5 mg PO DAILY 10/21/21 08/16/22 History lacosamide 100 mg tablet (Vimpat) 100 mg PO Q12H 10/21/21 08/16/22 History levetiracetam 750 mg tablet 1,500 mg PO BID 10/21/21 08/16/22 History lisinopril 20 mg tablet 20 mg PO DAILY 10/21/21 08/16/22 History loperamide 2 mg tablet 2 mg PO QID PRN Diarrhea 10/21/21 08/16/22 History melatonin 3 mg tablet 3 mg PO HS 10/21/21 08/16/22 History aspirin 81 mg chewable tablet 81 mg PO DAILY 02/21/22 08/16/22 History omeprazole 20 m
[2022-08-16 14:55] LABS: Sodium 121 mmol/L (137-145)
[2022-08-16 14:57] LABS: Magnesium 1.4 mg/dL (1.6-2.3)
--- NOTE | 2022-08-16 15:13 | ADMGEN ---
This patient, Martina Figueroa, was admitted to 3 [facility] Surg Room 310-01. Patient/family oriented to hospital policies and general routines including ID bracelet, bed and alarms, visiting hours, pain management, procedures, bathroom and other care routines, personal items, smoking policy, room service/diet, and visiting hours. Information on how to activate the Rapid Response Team has been discussed. Patient/Family are encouraged to report perceived risks to care and to ask questions if they do not understand what they are told or what they should do. Report from [facility]
[2022-08-16 17:43] LABS: Creatinine Urine 13.8 mg/dL
[2022-08-16 17:48] LABS: Sodium Urine Random 45 meq/L
[2022-08-16 18:18] LABS: Sodium 126 mmol/L (137-145)
[2022-08-16 21:40] LABS: Sodium 127 mmol/L (137-145)
[2022-08-17] VITALS (14 sets, daily range): BP systolic 87–146; BP diastolic 41–62; PULSE 53–74; RESP 14–16; TEMP 36.1–36.9; O2SAT 98–100
[2022-08-17] MEDS: LACOSAMIDE (*CRX) 100 MG TABLET PO ×3 (00:03→21:14)
[2022-08-17] MEDS: levETIRAcetam 500 MG TABLET 1500 MG PO ×3 (00:03→21:14)
[2022-08-17] MEDS: carvediloL 12.5 MG TABLET PO ×2 (00:03→07:59)
[2022-08-17] MEDS: MELATONIN 3 MG TABLET PO ×2 (00:03→21:14)
[2022-08-17] MEDS: SODIUM CHLORIDE 0.9% IV 1,000 ML 75 ML IV CONT (00:04)
[2022-08-17] MEDS: MAGNESIUM SULF 2 GM/WATER 50ML 2 GM/50 ML BAG IVPB (00:04)
[2022-08-17 02:17] LABS: Sodium 124 mmol/L (137-145)
[2022-08-17 07:11] LABS: Basophils Absolute Auto 0.1 K/mm3 (0.0-0.1); Basophils Percent Auto 1.4 % (0.2-1.2); Eosinophils Absolute Auto 0.5 K/mm3 (0-0.3); Eosinophils Percent Auto 6.5 % (0-4.4); Hematocrit 29.2 % (37.0-47.0); Hemoglobin 9.9 g/dL (12.0-15.0); Immature Granulocyte Absolute 0.02 K/mm3 (0.00-0.031); Immature Granulocyte Percent A 0.3 % (0-0.5); Lymphocytes Absolute Auto 2.27 K/mm3 (0.9-3.2); Lymphocytes Percent Auto 32.7 % (18.3-44.2); Mean Corpuscular HGB Conc 33.9 g/dl (32-36); Mean Corpuscular Volume 88.5 fl (80-100); Mean Platelet Volume 9.5 fl (7.4-10.4); Monocytes Absolute Auto 0.9 K/mm3 (0.1-0.6); Monocytes Percent Auto 12.9 % (2.6-8.5); Neutrophils Absolute Auto 3.2 K/mm3 (1.3-6.7); Neutrophils Percent Auto 46.2 % (45.5-73.1); Platelet Count Result 304 k/mm3 (150-375); Red Cell Distribution Width 12.4 % (11.5-14.5)
[2022-08-17 07:23] LABS: Anion Gap 5 mmol/L (8-16); Blood Urea Nitrogen 6 mg/dL (7-17); Calcium 8.5 mg/dL (8.4-10.2); Carbon Dioxide 24 mmol/L (22-30); Chloride 99 mmol/L (98-107); Estimated CRCL calculation 69 ml/min; Estimated Glomerular Filt Rate > 60; Glucose 83 mg/dL (65-110); Potassium 4.1 mmol/L (3.4-5.0); Sodium 128 mmol/L (137-145)
[2022-08-17] MEDS: ASPIRIN 81 MG CHEWABLE TABLET PO (07:56)
[2022-08-17] MEDS: CELECOXIB 200 MG CAPSULE PO (07:56)
[2022-08-17] MEDS: PANTOPRAZOLE 40 MG TABLET PO (07:59)
[2022-08-17] MEDS: DULoxetine HCL 30 MG CAPSULE.DR PO (08:00)
[2022-08-17] MEDS: FOLIC ACID 1 MG TABLET 5 MG PO (08:00)
[2022-08-17] MEDS: lisinopriL 20 MG TABLET PO (08:04)
[2022-08-17] MEDS: PREGABALIN (*CRX) 75 MG CAPSULE 150 MG PO ×3 (08:08→17:13)
[2022-08-17 09:31] LABS: Sodium 128 mmol/L (137-145)
--- NOTE | 2022-08-17 19:57 | PM.IMPN ---
Progress Note: A&P Assessment and Plan (1) Unresponsive episode: Code(s): R41.89 - Other symptoms and signs involving cognitive functions and awareness Status: Acute Assessment and Plan: The patient was at breakfast and started to feel woozy and lightheaded. She reported blurry and double vision on Monday and Monday prior to admission. She was taken back to her room and laid down. She does not believe she actually passed out, however. She has a history of prior stroke and subsequent seizures. CT head was negative for intracranial hemorrhage or mass effect. Orthostatic vitals minimally changed SBP 99 supine, 102 sitting, 88 standing. She was given IV fluids overnight. Echocardiogram shows normal LV systolic function, EF 65%, grade 3 diastolic dysfunction, and mild pulmonary hypertension. Brain MRI Small areas of hyperacute infarct progression adjacent to the chronic infarct changes in the right posterior frontal/right parietal lobes. Focal, 8 mm posterior enhancement with linear T2/FLAIR hyperintensity bordering the right posterior frontal and parietal encephalomalacia, likely representing persistent chronic infarct change versus acute on chronic infarct progression. Will consult neurology for further recommendations. Repeat MRI in 12 weeks recommended. Continue aspirin. Check lipid panel. consult PT/OT (2) Hyponatremia: Code(s): E87.1 - Hypo-osmolality and hyponatremia Status: Acute Assessment and Plan: Acute on chronic hyponatremia. Sodium 122 on admission. Likely secondary to hypovolemia hyponatremia from diarrhea the last couple of days prior to admission. Trend sodium level. 1500 mL fluid restriction. 08/17/22 sodium level 128 today. Hold cymbalta. TSH 1.14 and within normal limits. urine osmolality pending urine sodium 45 Monitor neuro status (3) Chronic anemia: Code(s): D64.9 - Anemia, unspecified Status: Chronic Assessment and Plan: Chronic, Stable. Hgb 10-12 at baseline. Monitor s/s acute bleeding. (4) Chronic kidney disease, stage 3: Code(s): N18.30 - Chronic kidney disease, stage 3 unspecified Status: Chronic Assessment and Plan: Chronic, stable. Renal function within normal limits. eGFR >60 (5) Hypertension: Code(s): I10 - Essential (primary) hypertension Status: Acute Assessment and Plan: Chronic, BP 100/55, HR 65. Hold antihypertensives for now and resume when improved. Hypovolemia may have contributed to neuro symptoms and near syncope. (6) Combined systolic and diastolic congestive heart failure: Code(s): I50.40 - Unspecified combined systolic (congestive) and diastolic (congestive) heart failure Status: Chronic Assessment and Plan: Chronic, Poorly documented in chart. Echo with normal LV systolic function and grade 3 diastolic dysfunction. Not in acute exacerbation. Monitor following gentle IV fluids. Hold celebrex Daily weights (7) Seizure disorder: Code(s): G40.909 - Epilepsy, unspecified, not intractable, without status epilepticus Status: Chronic Assessment and Plan: Chronic, post-stroke. Last seizure in October 2021 per patient. Continue lacosamide and levetiracetam. (8) Abnormal urinalysis: Code(s): R82.90 - Unspecified abnormal findings in urine Status: Acute Assessment and Plan: UA with 2+ leukocytes. Continued ceftriaxone, urine culture pending. Plan code status; full code Disposition: observation Discharge plan: return to long-term. Time Spent With Patient Time with patient: 25 - 35 minutes Subjective Date/time seen: 08/17/22 19:57 She denies new complaints. She reports since Monday of this week, she has had episodes of blurry and double vision. She had difficulty forming words, as well. These symptoms appear to have resolved at this time. Her left arm is contracted. Review of Systems Review of
[2022-08-18] VITALS (10 sets, daily range): BP systolic 83–105; BP diastolic 44–59; PULSE 58–70; RESP 15–18; TEMP 36.2–36.7; O2SAT 95–100
[2022-08-18 06:55] LABS: Anion Gap 6 mmol/L (8-16); Blood Urea Nitrogen 8 mg/dL (7-17); Calcium 8.8 mg/dL (8.4-10.2); Carbon Dioxide 24 mmol/L (22-30); Chloride 102 mmol/L (98-107); Cholesterol 178 mg/dL (0-200); Estimated CRCL calculation 69 ml/min; Estimated Glomerular Filt Rate > 60; Glucose 81 mg/dL (65-110); HDL Direct 41 mg/dL; Potassium 4.4 mmol/L (3.4-5.0); Sodium 132 mmol/L (137-145); Triglycerides 72 mg/dL (<150)
[2022-08-18 07:05] LABS: LDL Cholesterol Direct 101 mg/dL
[2022-08-18 07:34] LABS: Iron 71 ug/dL (37-170)
[2022-08-18 07:44] LABS: Percent Iron Saturation 22 % (20-50)
[2022-08-18 08:06] LABS: Folic Acid > 20.0 ng/mL (2.76->20)
[2022-08-18] MEDS: ASPIRIN 81 MG CHEWABLE TABLET PO (08:44)
[2022-08-18] MEDS: lisinopriL 20 MG TABLET PO (08:44)
[2022-08-18] MEDS: carvediloL 12.5 MG TABLET PO (08:45)
[2022-08-18] MEDS: PANTOPRAZOLE 40 MG TABLET PO (08:45)
[2022-08-18] MEDS: FOLIC ACID 1 MG TABLET 5 MG PO (08:45)
[2022-08-18] MEDS: PREGABALIN (*CRX) 75 MG CAPSULE 150 MG PO ×3 (08:46→17:12)
[2022-08-18] MEDS: LACOSAMIDE (*CRX) 100 MG TABLET PO ×2 (08:46→20:20)
[2022-08-18] MEDS: levETIRAcetam 500 MG TABLET 1500 MG PO ×2 (08:47→20:19)
--- NOTE | 2022-08-18 08:49 | PM.IMPN ---
Progress Note: A&P Assessment and Plan (1) Unresponsive episode: Code(s): R41.89 - Other symptoms and signs involving cognitive functions and awareness Status: Acute Assessment and Plan: The patient was at breakfast and started to feel woozy and lightheaded. She reported blurry and double vision on Monday and Monday prior to admission. She was taken back to her room and laid down. She does not believe she actually passed out, however. She has a history of prior stroke and subsequent seizures. CT head was negative for intracranial hemorrhage or mass effect. Orthostatic vitals minimally changed SBP 99 supine, 102 sitting, 88 standing. Echocardiogram shows normal LV systolic function, EF 65%, grade 3 diastolic dysfunction, and mild pulmonary hypertension. Brain MRI Small areas of hyperacute infarct progression adjacent to the chronic infarct changes in the right posterior frontal/right parietal lobes. Focal, 8 mm posterior enhancement with linear T2/FLAIR hyperintensity bordering the right posterior frontal and parietal encephalomalacia, likely representing persistent chronic infarct change versus acute on chronic infarct progression. Consulted neurology for further recommendations and appreciate guidance. Repeat MRI in 12 weeks recommended. Continue aspirin 81 mg daily. lipid panel - LDL 101, HDL 41. Add lipitor 40 mg daily consult PT/OT 08/18 BP soft 83/50-98/59 today. Stop lisinopril. Add lakshmi hose. Start gentle IV fluids NS@75/hour. Coreg dose decreased. (2) Hyponatremia: Code(s): E87.1 - Hypo-osmolality and hyponatremia Status: Acute Assessment and Plan: Acute on chronic hyponatremia. Sodium 122 on admission. Likely secondary to hypovolemia hyponatremia from diarrhea the last couple of days prior to admission. Trend sodium level. 1500 mL fluid restriction. 08/17/22 sodium level 128. Hold cymbalta. TSH 1.14 and within normal limits. urine osmolality pending urine sodium 45 Monitor neuro status 08/18 sodium level 132 (3) Chronic anemia: Code(s): D64.9 - Anemia, unspecified Status: Chronic Assessment and Plan: Chronic, Stable. Hgb 10-12 at baseline. Monitor s/s acute bleeding. (4) Chronic kidney disease, stage 3: Qualifiers: Chronic kidney disease stage 3 subtype: stage 3b (GFR 30-44) Qualified Code(s): N18.32 - Chronic kidney disease, stage 3b Code(s): N18.30 - Chronic kidney disease, stage 3 unspecified Status: Chronic Assessment and Plan: Chronic, stable. Renal function within normal limits. eGFR >60 (5) Hypertension: Qualifiers: Hypertension type: primary hypertension Qualified Code(s): I10 - Essential (primary) hypertension Code(s): I10 - Essential (primary) hypertension Status: Acute Assessment and Plan: Chronic, BP 100/55, HR 65. Hold antihypertensives for now and resume when improved. Hypovolemia may have contributed to neuro symptoms and near syncope. (6) Combined systolic and diastolic congestive heart failure: Qualifiers: Heart failure chronicity: chronic Qualified Code(s): I50.42 - Chronic combined systolic (congestive) and diastolic (congestive) heart failure Code(s): I50.40 - Unspecified combined systolic (congestive) and diastolic (congestive) heart failure Status: Chronic Assessment and Plan: Chronic, Poorly documented in chart. Echo with normal LV systolic function and grade 3 diastolic dysfunction. Not in acute exacerbation. Monitor following gentle IV fluids. Hold celebrex Daily weights (7) Seizure disorder: Code(s): G40.909 - Epilepsy, unspecified, not intractable, without status epilepticus Status: Chronic Assessment and Plan: Chronic, post-stroke. Last seizure in October 2021 per patient. Continue lacosamide and levetiracetam. EEG ordered (8) Acute UTI: Code(s): N39.0 - Urinary tract infection,
[2022-08-18] MEDS: ATORVASTATIN 40 MG TABLET PO (09:05)
--- NOTE | 2022-08-18 11:36 | WPDNEURCNPN ---
Assessment and Plan Assessment and plan (1) Unresponsive episode: Code(s): R41.89 - Other symptoms and signs involving cognitive functions and awareness Status: Acute (2) CVA (cerebral vascular accident): Code(s): I63.9 - Cerebral infarction, unspecified Status: Acute Plan is status post right hemispheric stroke in the past with resultant neurological deficit and admitted for the episode of unresponsiveness probably a syncopal episode but considering the previous history EEG will be obtained she is already taking the anticonvulsants thank Consult date: 08/18/22 HPI: Martina Figueroa is a 57 year old female admitted to the hospital through the emergency room for the complaints of unresponsive episode in addition to the history of 1. Hemorrhagic stroke 2. Seizures 3. Hypertension 4. GERD 5 chronic kidney disease reportedly she felt fine when she got up in the morning and not long after eating breakfast she began to feel woozy with double vision for a venous of the brain lightheadedness and weakness she was reportedly pale and diaphoretic they helped her to her bed and she was noted to be briefly unresponsive on EMS arrival she was noted to have left-sided mouth drooping which was reportedly worse than before she gave no history of associated visual changes on initial arrival in the emergency room she was found to have chronic hyponatremia CT scan of the head was unchanged she was noted to have loose stools on history in the past she carries the diagnosis of chronic hyponatremia, chronic renal disease stage III, hemorrhagic stroke with left hemiparesis, hypertension, seizure disorder, she has never smoked drinks 2 drinks per week and has been taking her antihypertensive medications along with the Vimpat 100 mg q.12 hours Keppra as 1500 mg q.12 hours initial evaluation otherwise was unremarkable. Chest x-ray was negative CT scan of the head documented chronic right frontal lobe encephalomalacia with overlying right frontal craniotomy Review of Systems Review of Systems: All systems reviewed & are unremarkable except as noted in HPI and below PMFSH Past Medical History Medical History (Updated 08/17/22 @ 20:43 by Mallory Horne APRN) Chronic anemia Chronic hyponatremia Chronic kidney disease, stage 3 Combined systolic and diastolic congestive heart failure Poorly documented in chart. 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 Dysphagia improved, G-tube out. Hypertension Kidney stones Seizure disorder Surgical History Surgical History (Updated 08/16/22 @ 13:43 by Felicia Case PA-C) History of craniotomy History of cystoscopy (12/2004) History of gastrostomy tube placement Removed 08/04/2022. History of ureter stent (12/2004) Family History Family History (Updated 08/16/22 @ 15:19 by Mis Packer RN) Mother Alzheimer's dementia A-fib Father Cerebrovascular accident Social History Social History (Updated 08/16/22 @ 13:44 by Felicia Case PA-C) Social History: Surrogate medical decision maker: Shyam Figueroa, daughter. Code status: Full code. Smoking status: Never smoker Tobacco type: cigarettes Alcohol intake: former Drinks per week: 2 Substance use: former Substance use type: marijuana Last use: 09/24/21 Lack of Transportation: No Lack of Food: Never True Current Housing: I Have Housing Concerned About Future Housing: No Difficulty Paying Gas/Electric Bills: No Difficulty Paying for Meds: No Currently Unemployed: No Education: High School Diploma/GED Difficulty w/ Childcare or Family Care: No Spiritual care concerns: No Meds Home Medications and Allergies Home Medications Medication Instructions Recorded Confirmed Type acetaminophen 325 mg tablet 325 mg PO Q4H PRN Pain 10/21/21 08/16/22 History carvedilol 12.5 mg tablet 12.5 mg PO BID 10/21/21 08/16/22 History folic acid 1 mg tablet 5 mg PO DAILY 10/05
[2022-08-18] MEDS: carvediloL 3.125 MG TABLET PO ×2 (12:56→20:40)
[2022-08-18] MEDS: SODIUM CHLORIDE 0.9% IV 1,000 ML 75 ML IV CONT (17:12)
[2022-08-18] MEDS: MELATONIN 3 MG TABLET PO (20:20)
[2022-08-19 04:10] VITALS: PULSE 59; RESP 16; TEMP 36.5; O2SAT 96
[2022-08-19 04:16] VITALS: BP 98/54
[2022-08-19] MEDS: SODIUM CHLORIDE 0.9% IV 1,000 ML 75 ML IV CONT (05:33)
[2022-08-19 09:35] VITALS: PULSE 59
[2022-08-19] MEDS: levETIRAcetam 500 MG TABLET 1500 MG PO (09:35)
[2022-08-19] MEDS: ATORVASTATIN 40 MG TABLET PO (09:35)
[2022-08-19] MEDS: carvediloL 3.125 MG TABLET PO (09:35)
[2022-08-19] MEDS: PREGABALIN (*CRX) 75 MG CAPSULE 150 MG PO ×3 (09:35→17:06)
[2022-08-19] MEDS: FOLIC ACID 1 MG TABLET 5 MG PO (09:35)
[2022-08-19] MEDS: LACOSAMIDE (*CRX) 100 MG TABLET PO (09:35)
[2022-08-19] MEDS: ASPIRIN 81 MG CHEWABLE TABLET PO (09:35)
[2022-08-19] MEDS: PANTOPRAZOLE 40 MG TABLET PO (09:36)
--- NOTE | 2022-08-19 13:05 | PM.DS ---
DS: Admitting Diagnosis Discharge Date 08/19/2022 1305 Admitting Diagnosis Unresponsive episode Hyponatremia Chronic anemia Chronic kidney disease, stage 3 Hypertension, chronic Combined systolic and diastolic congestive heart failure, chronic Seizure disorder Abnormal urinalysis DS: Discharge Diagnosis Discharge Diagnosis (1) Syncope: Qualifiers: Syncope type: unspecified Qualified Code(s): R55 - Syncope and collapse Code(s): R55 - Syncope and collapse Status: Acute Assessment and Plan: Syncope versus near-syncope. Presumed secondary to orthostatic hypotension. The patient was at breakfast and started to feel woozy and lightheaded. She reported blurry and double vision on Monday and Monday prior to admission. She was taken back to her room and laid down. She does not believe she actually passed out, however, she has a history of prior stroke and subsequent seizures. CT head was negative for intracranial hemorrhage or mass effect. Orthostatic vitals minimally changed SBP 99 supine, 102 sitting, 88 standing 08/17 Echocardiogram shows normal LV systolic function, EF 65%, grade 3 diastolic dysfunction, and mild pulmonary hypertension. Brain MRI Small areas of hyperacute infarct progression adjacent to the chronic infarct changes in the right posterior frontal/right parietal lobes. Focal, 8 mm posterior enhancement with linear T2/FLAIR hyperintensity bordering the right posterior frontal and parietal encephalomalacia, likely representing persistent chronic infarct change versus acute on chronic infarct progression. Consulted neurology for further recommendations and appreciate guidance. EEG obtained and results pending at the time of discharge. neurology to follow up with the patient regarding results. Repeat MRI in 12 weeks recommended. Continued aspirin 81 mg daily. lipid panel - LDL 101, HDL 41. Add lipitor 40 mg daily consulted PT/OT 08/18 BP soft 83/50-98/59 today. Stopped lisinopril. Added lakshmi hose. Started gentle IV fluids NS@75/hour. Coreg dose decreased. 08/19- 08/18 evening orthostatic vitals negative. IV fluids stopped. (2) Hyponatremia: Code(s): E87.1 - Hypo-osmolality and hyponatremia Status: Acute Assessment and Plan: Acute on chronic hyponatremia. Sodium 122 on admission. Likely secondary to hypovolemia hyponatremia from diarrhea the last couple of days prior to admission. Trend sodium level. 1500 mL fluid restriction initiated inpatient. 08/17/22 sodium level 128. Held cymbalta. TSH 1.14 and within normal limits. urine osmolality pending at the time of discharge. urine sodium 45 Monitor neuro status 08/18 sodium level 132 (3) Acute UTI: Code(s): N39.0 - Urinary tract infection, site not specified Status: Acute Assessment and Plan: UA with 2+ leukocytes. Treated with IV Rocephin initially. Urine culture showed enterococcus species growth. Stopped Rocephin. Vancomycin IV added. UTI treated given urinary urgency and syncopal episode 08/19 changed to amoxicillin 500 mg Q8 hours x5 more days as culture is sensitive to ampicillin. (4) Chronic anemia: Code(s): D64.9 - Anemia, unspecified Status: Chronic Assessment and Plan: Chronic, Stable. Hgb 10-12 at baseline. Monitor s/s acute bleeding. (5) Chronic kidney disease, stage 3: Qualifiers: Chronic kidney disease stage 3 subtype: stage 3b (GFR 30-44) Qualified Code(s): N18.32 - Chronic kidney disease, stage 3b Code(s): N18.30 - Chronic kidney disease, stage 3 unspecified Status: Chronic Assessment and Plan: Chronic, stable. Renal function within normal limits. eGFR >60 (6) Hypertension: Qualifiers: Hypertension type: primary hypertension Qualified Code(s): I10 - Essential (primary) hypertension Code(s): I10 - Essential (primary) hypertension Status: Acute Assessment and Plan: Chronic
[2022-08-19 14:00] VITALS: BP 113/44; PULSE 60; RESP 18; TEMP 36.1; O2SAT 100
[2022-08-19] MEDS: AMOXICILLIN 500 MG CAPSULE PO (15:22)
[2022-08-19 15:36] LABS: EDCOVIDSCREEN Negative (Negative)
[2022-08-19 23:02] LABS: Osmolality, Urine 158 mOsm/kg (50-1200)
--- NOTE | 2022-08-25 10:58 | WPDNEUROLOGY ---
Neurology EEG Report General Information Date of Study: 08/19/22 TEST EEG DIAGNOSIS syncopal episodes CONDITION OF RECORDING awake drowsy and sleep EEG NUMBER [id number] CLINICAL HISTORY patient reports couple of days ago she became dizzy and became pale she did not lose the consciousness she does have a history of stroke in September of this year that left her paralyzed on the left side EEG DESCRIPTION basic resting occipital frequency consists of large amount of well-organized low voltage 8 to 9 hertz per 2nd alpha admixed with low-voltage 15 to 18 hertz per 2nd beta bilateral symmetrical sleep activity seen during sleep. Intermittent right-sided low to medium voltage 5 to 7 hertz per 2nd theta activity is noted without any paroxysmal discharge. Non paroxysmal. Focal. Lateralizing. IMPRESSION Abnormal record due to the presence of intermittent right hemispheric theta activity without evidence of any paroxysmal activity. This abnormality is suggestive of underlying organic or metabolic encephalopathy or focal structural lesion. clinical correlation recommended , there is no evidence of any active seizure like discharge.
== END 2022-08-19 18:40 | DRG 204 ==
LOC: ANHED 12:35 → ANH3MEDSUR 13:58
PROVIDERS: Physician Assistant; Admitting Provider Internal Medicine; Emergency Provider Emergency Medicine; PCP Family Medicine; Visit Provider Nurse Practitioner Family
DX: I95.1 Orthostatic hypotension (principal); I13.0 Hypertensive heart and chronic kidney disease with heart failure and stage 1 through stage 4 chronic kidney disease, or unspecified chronic kidney disease; I50.42 Chronic combined systolic (congestive) and diastolic (congestive) heart failure; N18.30 Chronic kidney disease, stage 3 unspecified; E87.1 Hypo-osmolality and hyponatremia; N39.0 Urinary tract infection, site not specified; K21.9 Gastro-esophageal reflux disease without esophagitis; D64.9 Anemia, unspecified; B95.2 Enterococcus as the cause of diseases classified elsewhere; G40.909 Epilepsy, unspecified, not intractable, without status epilepticus; Z20.822 Contact with and (suspected) exposure to COVID-19; I69.392 Facial weakness following cerebral infarction; I69.354 Hemiplegia and hemiparesis following cerebral infarction affecting left non-dominant side; Z79.82 Long term (current) use of aspirin; Z87.442 Personal history of urinary calculi
CPT/HCPCS: 36415; 51701; 70450; 70553; 71045; 73502; 80048; 80053; 80061; 81001; 82570; 82607; 82746; 82948; 83540; 83550; 83735; 83930; 83935; 84295; 84300; 84443; 84484; 85025; 85610; 85730; 87077; 87086; 87088; 87186; 87426; 87636; 93005; 93306; 95816; 96361; 96365; 96367; 97110; 97161; 97165; 99285; A9270; A9577; C9803; G0378; G0379; J0696; J3370; J3475; J7030

== ENCOUNTER 2022-12-13 03:28 | Emergency (ER) | payer OTHER, SELFPAY ==
[2022-12-13] VITALS (17 sets, daily range): BP systolic 96–110; BP diastolic 52–70; PULSE 69; RESP 18; TEMP 36.1; O2SAT 95–100
--- NOTE | ~2022-12-13 | XR_ITS ---
AP view of the pelvis and AP and lateral views of the left hip Clinical history: Pain COMPARISON: 08/16/2022 Findings: No acute fracture or dislocation is seen. Osseous alignment is anatomic. Bilateral hip and SI joint spaces are preserved. Prominent stool noted at the rectum. Soft tissues are otherwise unrema rkable. Impression: No significant abnormality is seen. Reviewed, dictated and finalized at location . Impression: No significant abnormality is seen.
--- NOTE | ~2022-12-13 | XR_ITS ---
Left Forearm AP and lateral views of the left forearm were performed. Clinical History: Injury Findings: No acute fracture or dislocation is seen. There is apparent advanced degenerative change in the wrist, with irregular appearance of the scaphoid. Soft tissues are unremarkable. Impression: No acute fracture or dislocation clearly identified. Apparent advanced degenerative changes in the wrist with a very irregular appearance of the scaphoid. Consider dedicated wrist radiographs for further evaluation as indicated. Reviewed, dictated and finalized at location . Impression: No acute fracture or dislocation clearly identified. Apparent advanced degenerative changes in the wrist with a very irregular appea elisabeth of the scaphoid. Consider dedicated wrist radiographs for further evaluat ion as indicated.
--- NOTE | 2022-12-13 05:21 | ED.FALL ---
HPI - Fall General Chief Complaint: Fall Stated Complaint: fall Time Seen by Provider: 12/13/22 03:31 History of Present Illness HPI Narrative: Patient is from a correction, had been dropped onto her left side several days ago, presenting here because she was found today to have some bruising to her left hip and some pain in her forearm. Related Data Home Medications Medication Instructions Recorded Confirmed acetaminophen 325 mg tablet 325 mg PO Q4H PRN Pain 10/21/21 08/16/22 folic acid 1 mg tablet 5 mg PO DAILY 10/21/21 08/16/22 lacosamide 100 mg tablet (Vimpat) 100 mg PO Q12H 10/21/21 08/16/22 levetiracetam 750 mg tablet 1,500 mg PO BID 10/21/21 08/16/22 melatonin 3 mg tablet 3 mg PO HS 10/21/21 08/16/22 aspirin 81 mg chewable tablet 81 mg PO DAILY 02/21/22 08/16/22 omeprazole 20 mg capsule,delayed 20 mg PO DAILY 02/21/22 08/16/22 release Cymbalta 30 mg PO DAILY 08/16/22 08/16/22 pregabalin 150 mg capsule (Lyrica) 150 mg PO TID 08/16/22 08/16/22 Allergies Allergy/AdvReac Type Severity Reaction Status Date / Time No Known Allergies Allergy Unknown Verified 08/16/22 15:24 Review of Systems Review of Systems: CONST: No fever. HEENT: No sore throat C/V: No chest pain RESP: No cough GI: No abdominal pain : No dysuria. M/S: Left forearm and hip pain SKIN: Bruising to the hip NEURO: No headache PSYCH: [No depression] [facility] Past Medical History Medical History Chronic anemia Chronic hyponatremia Chronic kidney disease, stage 3 Combined systolic and diastolic congestive heart failure Poorly documented in chart. 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 Dysphagia improved, G-tube out. Hypertension Kidney stones Seizure disorder Surgical History Surgical History History of craniotomy History of cystoscopy (12/2004) History of gastrostomy tube placement Removed 08/04/2022. History of ureter stent (12/2004) Family History Family History Mother Alzheimer's dementia A-fib Father Cerebrovascular accident Social History Social History Social History: Surrogate medical decision maker: Shyam Figueroa, daughter. Code status: Full code. Smoking status: Never smoker Tobacco type: cigarettes Alcohol intake: former Drinks per week: 2 Substance use: former Substance use type: marijuana Last use: 09/24/21 Lack of Transportation: No Lack of Food: Never True Current Housing: I Have Housing Concerned About Future Housing: No Difficulty Paying Gas/Electric Bills: No Difficulty Paying for Meds: No Currently Unemployed: No Education: High School Diploma/GED Difficulty w/ Childcare or Family Care: No Spiritual care concerns: No Exam Narrative: EXAMINATION OF ORGAN SYSTEMS/BODY AREAS: Constitutional: Vital signs per nursing GENERAL:[No acute distress, non-toxic appearing.] HEAD: Old bruising left face EYES: EOMI, conjunctiva normal ENT: Hearing grossly intact LUNGS: Nonlabored breathing. HEART: [Regular rate and rhythm] ABD: [Soft], [nontender to palpation] EXT: Tenderness to left forearm, left hip/thigh, no tenderness anywhere else SKIN: Bruising of face, no left arm, left hip NEURO: [Alert. Left upper extremity contracted.] PSYCH: Normal affect Course Vital Signs Vital signs: Vital Signs Pulse Oximetry 98 12/13/22 03:34 Temperature 97.0 F L 12/13/22 03:35 Pulse Rate 69 12/13/22 03:35 Respiratory Rate 18 12/13/22 03:35 Blood Pressure 105/60 12/13/22 03:46 Pulse Oximetry 100 12/13/22 04:30 Oxygen Delivery Room Air 12/13/22 03:35 MDM - Fall MDM Narrative Medical decision making narrative: 1) Differential diagnosis: Fracture, sprains 2) Comorbidities: CVA 3) External notes reviewed: [facility] paperwo
--- NOTE | 2022-12-13 05:52 | PC.NURSE ---
report called to [facility] at [facility]
== END 2022-12-13 06:28 ==
PROVIDERS: Emergency Provider Emergency Medicine; PCP Family Medicine
DX: S70.02XA Contusion of left hip, initial encounter (principal); M79.632 Pain in left forearm; I13.0 Hypertensive heart and chronic kidney disease with heart failure and stage 1 through stage 4 chronic kidney disease, or unspecified chronic kidney disease; N18.30 Chronic kidney disease, stage 3 unspecified; I50.40 Unspecified combined systolic (congestive) and diastolic (congestive) heart failure; I69.354 Hemiplegia and hemiparesis following cerebral infarction affecting left non-dominant side; I69.391 Dysphagia following cerebral infarction; R13.10 Dysphagia, unspecified; D64.9 Anemia, unspecified; E87.1 Hypo-osmolality and hyponatremia; G40.909 Epilepsy, unspecified, not intractable, without status epilepticus; Z87.442 Personal history of urinary calculi; Z79.82 Long term (current) use of aspirin; W04.XXXA Fall while being carried or supported by other persons, initial encounter
CPT/HCPCS: 73090; 73502; 99284

== ENCOUNTER 2023-09-18 12:55 | Observation (INO) | payer OTHER, SELFPAY ==
[2023-09-18] VITALS (14 sets, daily range): BP systolic 114–157; BP diastolic 61–99; PULSE 60–73; RESP 11–16; TEMP 36.4–37; O2SAT 90–100; BMI 21.7
--- NOTE | ~2023-09-18 | CT_ITS ---
EXAMINATION: CTA BRAIN/CAROTID DATE: 09/18/2023 14:36 INDICATION: Altered mental status TECHNIQUE: Computed tomographic angiography (CTA) of the head and neck was performed with 100 mL Omni paque-350 intravenous contrast. Multiplanar reconstructions and maximum intensity projection 3D-recon structions of the carotid arteries and of the intracranial arteries were created by the technologist on a separate workstation. Precontrast CT of the head was also obtained. Automated exposure control and iterative reconstruction technique were employed.The dose-length product was 1563.77 mGy-cm. COMPARISON: Brain MR dated 08/17/2022 and PET/CT dated 08/16/2022 FINDINGS: Carotid arteries: Normal caliber thoracic arch without dissection. Small amount of nonhemodynamically significant ather osclerotic plaque at the origin of the innominate artery.. There is no evident atherosclerotic plaque with 0% stenosis of the right and left carotid bulbs relative to normal distal artery lumen diameter (NASCET criteria). The left vertebral artery is dominant with some tortuosity of the proximal verteb ral artery without hemodynamically significant stenosis. There is a moderate 50-70% stenosis at the o rigin of the smaller caliber right vertebral artery. There is pleural parenchymal scarring and mild m osaic attenuation in the visualized upper lungs. Linear bands of likely mucous extending across the d istal trachea. There is a region of fluid density in the anterior mediastinum along the anterior susie in of the ascending thoracic aorta and at the AP window potentially representing pericardial fluid in the superior pericardial recess. Severe cervical spondylosis. Head: Postoperative change of prior right frontotemporoparietal craniotomy which is fixed with a few plates and screws. There is a region of encephalomalacia in the underlying right frontoparietal region whic h could represent sequela of prior surgery, infarct or trauma. Interval decrease in size of a now tin y chronic right subdural hygroma underlying the craniotomy. No acute intracranial hemorrhage or acute infarction. Mild ex vacuo dilation of the body of the right lateral ventricle. Ventricles are otherw ise normal. There is additional mild to moderate scattered white matter hypoattenuation consistent wi th chronic small vessel ischemic disease. No mass/mass effect. Small amount of bubbly mucus in the de pendent left ethmoid sinus. The orbits and mastoid air cells are normal. Torus palatinus. Intracranial arteries Left vertebral artery is dominant. There is no hemodynamically significant stenosis in the vertebral, basilar and internal carotid arteries. There are no aneurysms identified. The bilateral A1 and left P1 segments are patent. The right posterior cerebral artery supplied via a patent right posterior com municating artery. Cerebral arterial arborization appears symmetric. IMPRESSION: 1. 0% stenosis of the right and left carotid bulbs relative to normal distal artery lumen diameter (N ASCET criteria). 2. Stable appearance of chronic encephalomalacia in the right frontoparietal region which could be re lated to prior surgery, trauma or infarct with overlying decreasing small subdural hygroma and right frontotemporoparietal craniotomy. 3. Unremarkable cerebral CT angiogram with normal variant right posterior commuting artery supplying the right posterior cerebral artery and no aneurysm. 4. Mild fluid collection in the anterior mediastinum likely pericardial fluid in the superior pericar dial recess. Reviewed, dictated and finalized at location A. S INTERPRETER IMPRESSION: 1. 0% stenosis of the right and left carotid bulbs relative to normal distal ar ginny lumen diameter (NASCET criteria). 2. Stable appearance of chronic encephalomalacia in the right frontoparietal re g
--- NOTE | ~2023-09-18 | XR_ITS ---
EXAMINATION: XR chest 1V portable INDICATION: Leukocytosis TECHNIQUE: Portable AP chest at 2216 hours COMPARISON: 08/16/2022 FINDINGS: Cardiomegaly is noted. There are interstitial opacities with a mid and lower lung zone pred ominance. Small pleural effusions are suggested. There is no pneumothorax. There has been interval in sertion of a dual lead pacemaker of the right chest wall which ends with leads in expected position. There is a chronic fracture of the proximal left humerus. Surgical clips are noted in the upper abdom en. IMPRESSION: 1. Interstitial opacities in the mid and lower lung zones, consistent with pneumonia/or pulmonary casandra ma. 2. Cardiomegaly. 3. Possible small pleural effusions. Reviewed, dictated and finalized at location F. GE CLINICIAN
--- NOTE | ~2023-09-18 | MR_ITS ---
EXAMINATION: MR brain/brain stem wo con DATE: 09/19/2023 10:53 INDICATION: Altered mental status and confusion. Assess for acute infarct. TECHNIQUE: Magnetic resonance imaging (MRI) of the brain and brainstem was performed without intraven ous contrast. Sequences included sagittal and axial T1-weighted SE, axial diffusion-weighted FS SE, a xial 3D SWAN, axial T2-weighted FLAIR, and axial T2-weighted FSE. Postcontrast axial and coronal T1-w eighted SE was obtained. Apparent diffusion coefficient (ADC) maps were created. COMPARISON: MRI dated 08/17/2022 FINDINGS: Right frontotemporoparietal craniotomy with plate and screw fixation. There is a moderate-sized regio n of encephalomalacia in the right frontoparietal region which could represent sequela of old infarct , surgery or trauma. Associated ex vacuo dilation of the body and trigone region of the right lateral ventricle. Ventricles are otherwise normal in size. There is associated signal dropout on opposed ph ase images consistent with sequela of old blood products and/or laminar necrosis. There are no areas of restricted diffusion to suggest acute infarction. No acute intracranial hemorrhage or abnormal int racranial mass lesion. There are scattered areas of nonspecific increased T2-weighted signal intensit y in the pontine and cerebral white matter, predominantly involving the deep and periventricular whit e matter. There are no intraparenchymal signal abnormalities seen on the other pulse sequences. Ther e are no abnormal extra-axial fluid collections. Flow voids are seen in the cerebral arteries on the T2-weighted sequences consistent with their expected patency. Small amount of mucus in the posterior left ethmoid sinus. Visualized orbits and soft tissues are unremarkable. IMPRESSION: 1. No acute intracranial process. 2. Right frontotemporoparietal craniotomy with underlying moderate-sized region of encephalomalacia w hich could be due to chronic infarct, surgery or trauma. 3. Moderate scattered cerebral and pontine white matter T2 hyperintensity likely sequela of chronic s mall vessel ischemic disease. Reviewed, dictated and finalized at location A. RIBUTION ACCOUNTING CLERK IMPRESSION: 1. No acute intracranial process. 2. Right frontotemporoparietal craniotomy with underlying moderate-sized region of encephalomalacia which could be due to chronic infarct, surgery or trauma. 3. Moderate scattered cerebral and pontine white matter T2 hyperintensity likel y sequela of chronic small vessel ischemic disease.
--- NOTE | ~2023-09-18 | XR_ITS ---
Portable chest x-ray Comparison: 09/18/2023 Clinical History: Confusion Findings: Lungs are clear, without focal consolidation or pleural effusion. Cardiomediastinal silho uette is stable. Bones and soft tissues are unremarkable. Impression: Normal chest. Reviewed, dictated and finalized at location . BIT ELECTRICIAN Impression: Normal chest.
--- NOTE | 2023-09-18 13:07 | ECG_ITS ---
Measurements Intervals [place] Rate: 58 P: 13 [place]: 176 QRS: 74 QRSD: 93 T: 58 QT: 425 QTc: 418 Interpretive Statements SINUS BRADYCARDIA BORDERLINE T WAVE ABNORMALITY- ANTERIOR LEADS BASELINE ARTIFACT- I, II, III, AVR, AVL, AVF, V1-V6 BORDERLINE ECG COMPARED TO ECG 08/16/2022 09:23:59 NO SIGNIFICANT CHANGES Electronically Signed On 09-18-2023 13:26:00 [employer]OTECTION OFFICER by Deni Yun D.O.
[2023-09-18 14:05] LABS: Basophils Absolute Auto 0.1 K/mm3 (0.0-0.1); Basophils Percent Auto 0.7 % (0.2-1.2); Eosinophils Absolute Auto 0.1 K/mm3 (0-0.3); Eosinophils Percent Auto 0.8 % (0-4.4); Hematocrit 37.5 % (37.0-47.0); Hemoglobin 12.4 g/dL (12.0-15.0); Immature Granulocyte Percent A 0.6 % (0-0.5); Lymphocytes Absolute Auto 1.94 K/mm3 (0.9-3.2); Lymphocytes Percent Auto 11.9 % (18.3-44.2); Mean Corpuscular HGB Conc 33.1 g/dl (32-36); Mean Corpuscular Hemoglobin 30.9 pg (26-34); Mean Corpuscular Volume 93.5 fl (80-100); Mean Platelet Volume 9.3 fl (7.4-10.4); Monocytes Absolute Auto 0.7 K/mm3 (0.1-0.6); Monocytes Percent Auto 4.1 % (2.6-8.5); Neutrophils Absolute Auto 13.3 K/mm3 (1.3-6.7); Neutrophils Percent Auto 81.9 % (45.5-73.1); Platelet Count Result 282 k/mm3 (150-375); Red Blood Count 4.01 M/mm3 (4.2-5.4); White Blood Count 16.3 K/mm3 (4.5-10.0)
[2023-09-18 14:14] LABS: Alanine Aminotransferase 25 U/L (6-35); Albumin Level 4.9 g/dL (3.5-5.1); Alkaline Phosphatase 94 U/L (38-126); Anion Gap 10 mmol/L (8-16); Aspartate Amino Transferase 46 U/L (14-36); Bilirubin,Total 0.7 mg/dL (0.2-1.3); Blood Urea Nitrogen 13 mg/dL (7-17); Calcium 9.6 mg/dL (8.4-10.2); Carbon Dioxide 27 mmol/L (22-30); Chloride 93 mmol/L (98-107); Estimated CRCL calculation 56 ml/min; Estimated Glomerular Filt Rate > 60; Glucose 103 mg/dL (65-110); Potassium 4.5 mmol/L (3.4-5.0); Sodium 130 mmol/L (137-145)
[2023-09-18 14:15] LABS: INR 0.9; Prothrombin Time 12.9 Seconds (11.1-14.7)
[2023-09-18 14:16] LABS: Partial Thromboplastin Time 23.1 SECONDS (22.3-36.8)
--- NOTE | 2023-09-18 14:20 | ED.AMS ---
HPI - Altered Mental Status General Chief Complaint: Altered Mental Status Stated Complaint: feeling confused Time Seen by Provider: 09/18/23 13:43 58-year-old female presenting to the emergency department for evaluation of altered mental status. Patient states she does feel more confused. [facility] and when EMS arrived patient wanted to decline transportation. Patient does have a history of a massive stroke resulting in left-sided deficit. Patient also has history of TIAs. At this time patient denies any complaints other than feeling mildly confused. Patient is alert oriented x4 but is slow to answer the questions. Physical therapy was evaluating the patient and patient was slurring her speech and was confused Related Data Home Medications Medication Instructions Recorded Confirmed acetaminophen 325 mg tablet 325 mg PO Q4H PRN Pain 10/21/21 09/18/23 folic acid 1 mg tablet 5 mg PO DAILY 10/21/21 09/18/23 lacosamide 100 mg tablet (Vimpat) 100 mg PO Q12H 10/21/21 09/18/23 levetiracetam 750 mg tablet 1,500 mg PO BID 10/21/21 09/18/23 melatonin 3 mg tablet 3 mg PO HS 10/21/21 09/18/23 aspirin 81 mg chewable tablet 81 mg PO DAILY 02/21/22 09/18/23 omeprazole 20 mg capsule,delayed 20 mg PO DAILY 02/21/22 09/18/23 release Cymbalta 30 mg PO DAILY 08/16/22 09/18/23 pregabalin 150 mg capsule (Lyrica) 150 mg PO TID 08/16/22 09/18/23 Allergies Allergy/AdvReac Type Severity Reaction Status Date / Time No Known Allergies Allergy Unknown Verified 09/18/23 13:29 Review of Systems Review of Systems: All systems reviewed & are unremarkable except as noted in HPI and below PMFSH Past Medical History Medical History Chronic anemia Chronic hyponatremia Chronic kidney disease, stage 3 Combined systolic and diastolic congestive heart failure Poorly documented in chart. 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 Dysphagia improved, G-tube out. Hypertension Kidney stones Seizure disorder Surgical History Surgical History History of craniotomy History of cystoscopy (12/2004) History of gastrostomy tube placement Removed 08/04/2022. History of ureter stent (12/2004) Family History Family History Mother Alzheimer's dementia A-fib Father Cerebrovascular accident Social History Social History Social History: Surrogate medical decision maker: Shyam Figueroa, daughter. Code status: Full code. Smoking status: Unknown if ever smoked Tobacco type: cigarettes Alcohol intake: unknown Drinks per week: 2 Substance use: unknown Substance use type: marijuana Last use: 09/24/21 Do You Feel Safe in your Home?: No Lack of Transportation: No Lack of Food: Never True Current Housing: Decline to Answer Concerned About Future Housing: No Difficulty Paying Gas/Electric Bills: No Difficulty Paying for Meds: No Currently Unemployed: No Education: High School Diploma/GED Difficulty w/ Childcare or Family Care: No Spiritual care concerns: No Exam Narrative: APPEARANCE: Well appearing, no pain, no distress, well-nourished. HEAD: normocephalic, atraumatic. EYES: PERRLA/EOMI, conjunctivae clear. NOSE: Normal no drainage EARS:TMS clear with good light reflex. THROAT: Pharynx clear, no exudate. NECK: Supple. No adenopathy, no masses. RESPIRATORY: Airway patent, respirations nonlabored. Clear to auscultation bilaterally, no rales, rhonchi, wheezing. CARDIOVASCULAR: Regular rate and rhythm without murmurs rubs or gallops. ABDOMINAL: Soft, nontender, nondistended, normal bowel sounds MUSCULOSKELETAL: Moves all extremities. Strength/ROM intact, No edema, No calf tenderness. NEURO: Left-sided chronic deficits from previous CVA SKIN: Chronic discoloration of the l
[2023-09-18] MEDS: SODIUM CHLORIDE 0.9% IV 1,000 ML 999 ML IV CONT (15:51)
--- NOTE | 2023-09-18 15:53 | PC.NURSE ---
Attempted to Straight Cath pt unsuccessfully. made aware.
--- NOTE | 2023-09-18 16:10 | PM.IMHP ---
H&P: HPI History of Present Illness Date/Time: 09/18/23 19:15 Chief Complaint: Confusion. Narrative: This is a very pleasant 58-year-old female with history of hemorrhagic stroke, seizures, hypertension, GERD, and chronic kidney disease who presented to the emergency department for evaluation of confusion. The patient provides the following history. She reports feeling just fine when she got up this morning. At about 10:00 she reports that she started to feel confused. She has a difficult time elaborating on that he goes on to say that she was just very tired and ?I was not sure where I was at.? Staff at her nursing facility called EMS and she initially declined transport but they talked her into coming. On arrival to the ED she was alert and oriented x4 with stable vital signs. Labs were significant for WBC count of 16.3, sodium 130, chloride 93. She tested negative for influenza, RSV, and COVID. CTA of the head and neck showed stable findings and no acute findings within unremarkable angiogram and a mild fluid collection anterior mediastinum, likely pericardial fluid in the superior pericardial recess. Due to her history of multiple strokes, she is being admitted for observation. At the time my evaluation she has no complaints and reports that she feels fine but perhaps still bit confused. She denies headache, visual changes (occasional double vision which is not new), facial droop, difficulty speaking and swallowing, and weakness and paresthesias aside from her chronic stent left hemiplegia. She also denies fever, chills, sweats, cold and flu symptoms, nausea, vomiting, diarrhea, and dysuria. She has not had any recent change in medications that she can remember aside from fact that she stopped taking iron pills recently as it caused her GI upset. Review of Systems Review of Systems: Twelve systems were reviewed and are negative except for as per HPI. [facility] Past Medical History Medical History (Updated 09/18/23 @ 22:03 by Felicia Case PA-C) Chronic anemia Chronic hyponatremia Chronic kidney disease, stage 3 Combined systolic and diastolic congestive heart failure Poorly documented in chart. 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 Dysphagia improved, G-tube out. Hypertension Kidney stones Seizure disorder Surgical History Surgical History History of craniotomy History of cystoscopy (12/2004) History of gastrostomy tube placement Removed 08/04/2022. History of ureter stent (12/2004) Family History Family History Mother Alzheimer's dementia A-fib Father Cerebrovascular accident Social History Social History Social History: Surrogate medical decision maker: Shyam Figueroa, daughter. Code status: Full code. Smoking status: Unknown if ever smoked Tobacco type: cigarettes Alcohol intake: unknown Drinks per week: 2 Substance use: unknown Substance use type: marijuana Last use: 09/24/21 Do You Feel Safe in your Home?: No Lack of Transportation: No Lack of Food: Never True Current Housing: Decline to Answer Concerned About Future Housing: No Difficulty Paying Gas/Electric Bills: No Difficulty Paying for Meds: No Currently Unemployed: No Education: High School Diploma/GED Difficulty w/ Childcare or Family Care: No Spiritual care concerns: No Meds Home Medications and Allergies Home Medications Medication Instructions Recorded Confirmed Type acetaminophen 325 mg tablet 325 mg PO Q4H PRN Pain 10/21/21 09/18/23 History folic acid 1 mg tablet 5 mg PO DAILY 10/21/21 09/18/23 History lacosamide 100 mg tablet (Vimpat) 100 mg PO Q12H 10/21/21 09/18/23 History levetiracetam 750 mg tablet 1,500 mg PO BID 10/21/21 09/18/23 History melatonin 3 mg tablet 3 mg PO HS 10/21/21 09/18/23 History
[2023-09-18 16:13] LABS: Influenza A QL RT-PCR Negative (Negative); Influenza B QL RT-PCR Negative (Negative); RSV RNA, RT-PCR Negative (Negative); SARS-CoV-2 RNA PCR Negative (Negative)
--- NOTE | 2023-09-18 17:38 | PC.NURSE ---
Attempted to notify daughter x1. Updated Ann-Marie @[facility] that patient was being admitted at 4030
--- NOTE | 2023-09-18 18:07 | ADMGEN ---
This patient, Martina Figueroa, was admitted to IMU Room 207-01. Patient/family oriented to hospital policies and general routines including ID bracelet, bed and alarms, visiting hours, pain management, procedures, bathroom and other care routines, personal items, smoking policy, room service/diet, and visiting hours. Information on how to activate the Rapid Response Team has been discussed. Patient/Family are encouraged to report perceived risks to care and to ask questions if they do not understand what they are told or what they should do.
[2023-09-18] MEDS: levETIRAcetam 500 MG TABLET 1500 MG PO (23:43)
[2023-09-18] MEDS: PREGABALIN (*CRX) 75 MG CAPSULE 150 MG PO (23:43)
[2023-09-18] MEDS: MELATONIN 3 MG TABLET PO (23:43)
[2023-09-18] MEDS: carvediloL 3.125 MG TABLET PO (23:43)
[2023-09-19] VITALS (10 sets, daily range): BP systolic 91–103; BP diastolic 45–60; PULSE 65–87; RESP 12–20; TEMP 36.8–37; O2SAT 96–100
[2023-09-19 05:20] LABS: Hematocrit 30.9 % (37.0-47.0); Hemoglobin 10.1 g/dL (12.0-15.0); Mean Corpuscular HGB Conc 32.7 g/dl (32-36); Mean Corpuscular Volume 94.8 fl (80-100); Mean Platelet Volume 8.8 fl (7.4-10.4); Platelet Count Result 227 k/mm3 (150-375); Red Blood Count 3.26 M/mm3 (4.2-5.4); Red Cell Distribution Width 12.1 % (11.5-14.5); White Blood Count 5.8 K/mm3 (4.5-10.0)
[2023-09-19 05:34] LABS: Anion Gap 7 mmol/L (8-16); Blood Urea Nitrogen 8 mg/dL (7-17); CRP < 0.5 mg/dL (<1.0); Calcium 8.8 mg/dL (8.4-10.2); Carbon Dioxide 22 mmol/L (22-30); Chloride 103 mmol/L (98-107); Estimated CRCL calculation 76 ml/min; Estimated Glomerular Filt Rate > 60; Glucose 82 mg/dL (65-110); Magnesium 1.6 mg/dL (1.6-2.3); Potassium 3.9 mmol/L (3.4-5.0); Sodium 132 mmol/L (137-145)
[2023-09-19] MEDS: PREGABALIN (*CRX) 75 MG CAPSULE 150 MG PO ×2 (05:42→14:22)
[2023-09-19 08:34] LABS: Folic Acid > 20.0 ng/mL (2.76->20)
[2023-09-19] MEDS: FOLIC ACID 1 MG TABLET 5 MG PO (09:04)
[2023-09-19] MEDS: PANTOPRAZOLE 40 MG TABLET PO (09:05)
[2023-09-19] MEDS: ATORVASTATIN 40 MG TABLET PO (09:05)
[2023-09-19] MEDS: DULoxetine HCL 30 MG CAPSULE.DR PO (09:05)
[2023-09-19] MEDS: ASPIRIN 81 MG CHEWABLE TABLET PO (09:05)
[2023-09-19] MEDS: levETIRAcetam 500 MG TABLET 1500 MG PO (09:05)
[2023-09-19] MEDS: carvediloL 3.125 MG TABLET PO (09:06)
--- NOTE | 2023-09-19 10:15 | PM.IMPN ---
Progress Note: A&P Assessment and Plan (1) Confusion: Code(s): R41.0 - Disorientation, unspecified Status: Acute Assessment and Plan: Consult to neurology pending Check MRI Neurochecks q.4 Urine drug screen ordered B12, folate, TSH within normal limits (2) Chronic hyponatremia: Code(s): E87.1 - Hypo-osmolality and hyponatremia Status: Acute Assessment and Plan: Stable, monitor (3) Discoloration of skin of foot: Code(s): L81.9 - Disorder of pigmentation, unspecified Status: Acute Assessment and Plan: Manage outpatient, stable ABIs ordered, follow-up (4) Leukocytosis: Code(s): D72.829 - Elevated white blood cell count, unspecified Status: Acute Assessment and Plan: Likely reactive, monitor Chest x-ray nonacute Urinalysis ordered and pending Negative for RSV/flu/COVID (5) Seizure disorder: Code(s): G40.909 - Epilepsy, unspecified, not intractable, without status epilepticus Status: Chronic Assessment and Plan: Continue home meds, neurochecks Q 4, no seizure activity noted, monitor (6) Hypertension: Qualifiers: Hypertension type: primary hypertension Qualified Code(s): I10 - Essential (primary) hypertension Code(s): I10 - Essential (primary) hypertension Status: Acute Assessment and Plan: Blood pressure reviewed 09/19 Plan DVT prophylaxis with SCDs GI prophylaxis not indicated Code status full code The patient presented to the emergency department for evaluation of confusion as detailed in HPI. Labs, imaging, EKG, and all reports were personally reviewed. She is alert and oriented x4 and her exam seems unchanged compared to previous examinations by this author. Renal function is normal and her only electrolyte abnormalities that of chronic hyponatremia which is unchanged. She does not appear volume overloaded or dehydrated on exam. Chest x-ray and urinalysis have been ordered to rule out underlying infection given elevated WBC count. She tested negative for influenza, RSV, and COVID. Given her history multiple strokes, she is being admitted for close monitoring. Continue neurologic checks q.4 hours. Urine drug screen has been ordered. Brain MRI ordered for tomorrow. Regarding the discoloration of her left foot, she reports that this is a chronic finding for years and multiple foot is cold she has great pulses and fine sensation. ABIs ordered. Blood pressures were reviewed and they are stable. Her home medications will be reviewed and resumed as appropriate. Subjective Date/time seen: 09/19/23 10:15 Interval history: 58-year-old female with history of hemorrhagic stroke, seizures, kidney disease and GERD is presenting with altered mental status is being worked up for possible TIA/CVA. No overnight events noted. No chest pain or shortness of breath. No nausea, vomiting or diarrhea. No fevers or chills. Review of Systems Review of Systems: 12 point review of systems was assessed and was negative except as noted in the HPI Exam Narrative: General: No acute distress, alert and oriented per baseline HEENT: Atraumatic, normocephalic, mucous membranes moist CV: Regular rate and rhythm, S1, S2 Lungs: Clear to auscultation bilaterally, no rales or crackles noted, no wheezes, good air entry Abdomen: Soft, nontender, nondistended Extremities: Normal to inspection Skin: No rashes noted, no lesions or wounds seen Psych: Euthymic, normal affect Objective Data Vital Signs Vital Signs: Vital Signs - 24 hr 09/18/23 12:57 09/18/23 13:02 09/18/23 13:16 Temperature 97.6 F Pulse Rate 62 61 61 Respiratory Rate 13 13 16 Blood Pressure 134/80 134/80 139/99 H Pulse Oximetry 94 99 99 Oxygen Delivery Room Air 09/18/23 14:58 09/18/23 15:01 09/18/23 15:16 Temperature Pulse Rate 64 61 60 Respiratory Rate 11 L 11 L 12 Blood Pressure 117/61 115/70
[2023-09-19 12:07] LABS: Appearance Urine Clear (Clear); Bacteria Urine None Seen /hpf; Bilirubin Urine Negative (Negative); Blood Urine 1+ (Negative); Color Urine Yellow (Yellow); Glucose Urine UA Negative (Negative); Ketones Urine Negative (Negative); Leukocyte Esterase Ur 1+ LEU/UL (Negative); Need Manual Microscopic Reviewed; Nitrate Urine Negative (Negative); Non Pathogenic Casts 0-2; Protein Urine Negative (Negative); RBC Urine 0-2 /hpf (0-2); Specific Grav Ur 1.021 (1.001-1.035); Squamous Epithelial Cell Urine None seen /hpf (Few); Urobilinogen Urine 0.2 mg/dL (<2.0); WBC Urine 0-5 /hpf
[2023-09-19 12:08] LABS: Add Urine Microscopic? YES
--- NOTE | 2023-09-19 12:55 | WPDNEURCNPN ---
Consult date: 09/19/23 HPI: Martina Figueroa is a 58 year old female 58 years old admitted to the hospital through the emergency room where she was brought in for the complaints of confusion patient has been in assisted where EMS were called when the patient declined the transportation patient is known to have massive stroke with resultant left-sided deficit in addition to history of TIA but at the time of this visit to the ER she was not complaining of anything she has been on multiple medications particularly involving lacosamide 100mg q.12 hours [place] transit time 3:00 p.m. mg twice a day aspirin 81mg daily and Cymbalta 30mg daily with Lyrica 150mg t.i.d. she is not allergic to any medication her past history is consistent with the anemia, hyponatremia, hemorrhagic stroke, with resultant left hemiparesis, hypertension, and seizure disorder, she drinks only 2 drinks per week and initial exam in the emergency room was documented to have left-sided significant deficit vital signs were normal, CBC was normal, basic metabolic panel was borderline with sodium 132 but screening for influenza a influenza B RSV and COVID were negative head and neck CTA revealed no stenosis except the documentation of chronic encephalomalacia in the right frontoparietal region related to previous surgery or trauma or stroke [facility] Past Medical History Medical History Chronic anemia Chronic hyponatremia Chronic kidney disease, stage 3 Combined systolic and diastolic congestive heart failure Poorly documented in chart. 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 Dysphagia improved, G-tube out. Hypertension Kidney stones Seizure disorder Surgical History Surgical History History of craniotomy History of cystoscopy (12/2004) History of gastrostomy tube placement Removed 08/04/2022. History of ureter stent (12/2004) Family History Family History Mother Alzheimer's dementia A-fib Father Cerebrovascular accident Social History Social History Social History: Surrogate medical decision maker: Shyam Figueroa, daughter. Code status: Full code. Smoking status: Unknown if ever smoked Tobacco type: cigarettes Alcohol intake: unknown Drinks per week: 2 Substance use: unknown Substance use type: marijuana Last use: 09/24/21 Do You Feel Safe in your Home?: No Lack of Transportation: No Lack of Food: Never True Current Housing: Decline to Answer Concerned About Future Housing: No Difficulty Paying Gas/Electric Bills: No Difficulty Paying for Meds: No Currently Unemployed: No Education: High School Diploma/GED Difficulty w/ Childcare or Family Care: No Spiritual care concerns: No Meds Home Medications and Allergies Home Medications Medication Instructions Recorded Confirmed Type acetaminophen 325 mg tablet 325 mg PO Q4H PRN Pain 10/21/21 09/18/23 History folic acid 1 mg tablet 5 mg PO DAILY 10/21/21 09/18/23 History lacosamide 100 mg tablet (Vimpat) 100 mg PO Q12H 10/21/21 09/18/23 History levetiracetam 750 mg tablet 1,500 mg PO BID 10/21/21 09/18/23 History melatonin 3 mg tablet 3 mg PO HS 10/21/21 09/18/23 History aspirin 81 mg chewable tablet 81 mg PO DAILY 02/21/22 09/18/23 History omeprazole 20 mg capsule,delayed 20 mg PO DAILY 02/21/22 09/18/23 History release Cymbalta 30 mg PO DAILY 08/16/22 09/18/23 History pregabalin 150 mg capsule (Lyrica) 150 mg PO TID 08/16/22 09/18/23 History atorvastatin 40 mg tablet 40 mg PO DAILY #7 tabs 08/19/22 09/18/23 Rx carvedilol 3.125 mg tablet (Coreg) 3.125 mg PO Q12HR #14 tabs 08/19/22 09/18/23 Rx loperamide 2 mg tablet 2 mg PO QID PRN Diarrhea #7 tabs 08/19/22 09/18/23 Rx Allergies Allergy/AdvReac Type Severity Reaction Status Date / Time
--- NOTE | 2023-09-19 13:41 | PM.DS ---
DS: Admitting Diagnosis Discharge Date 09/19/23 Admitting Diagnosis Altered mental status DS: Discharge Diagnosis Discharge Diagnosis (1) Confusion: Code(s): R41.0 - Disorientation, unspecified Status: Acute (2) Chronic hyponatremia: Code(s): E87.1 - Hypo-osmolality and hyponatremia Status: Acute (3) Discoloration of skin of foot: Code(s): L81.9 - Disorder of pigmentation, unspecified Status: Acute (4) Leukocytosis: Code(s): D72.829 - Elevated white blood cell count, unspecified Status: Acute (5) Seizure disorder: Code(s): G40.909 - Epilepsy, unspecified, not intractable, without status epilepticus Status: Chronic (6) Hypertension: Qualifiers: Hypertension type: primary hypertension Qualified Code(s): I10 - Essential (primary) hypertension Code(s): I10 - Essential (primary) hypertension Status: Acute DS: Summary Hospital Course Hospital Course: 58-year-old female with history of hemorrhagic stroke, seizures, hypertension, GERD, and chronic kidney disease who presented to the emergency department for evaluation of confusion. CTA head and neck IMPRESSION: 1. 0% stenosis of the right and left carotid bulbs relative to normal distal artery lumen diameter (NASCET criteria). 2. Stable appearance of chronic encephalomalacia in the right frontoparietal region which could be related to prior surgery, trauma or infarct with overlying decreasing small subdural hygroma and right frontotemporoparietal craniotomy. 3. Unremarkable cerebral CT angiogram with normal variant right posterior commuting artery supplying the right posterior cerebral artery and no aneurysm. 4. Mild fluid collection in the anterior mediastinum likely pericardial fluid in the superior pericardial recess. Brain MRI IMPRESSION: 1. No acute intracranial process. 2. Right frontotemporoparietal craniotomy with underlying moderate-sized region of encephalomalacia which could be due to chronic infarct, surgery or trauma. 3. Moderate scattered cerebral and pontine white matter T2 hyperintensity likely sequela of chronic small vessel ischemic disease. The above findings were discussed with neurology who was consulted. Recommendations were continue home aspirin and statin and follow-up outpatient. All symptoms resolved. Patient was discharged in stable condition with close outpatient follow-up by primary care and Neurology. Please see above and med rec for details. Time Spent with Patient Time attestation: Total time spent providing and/or coordinating discharge services: Exam Narrative: General:?Chronically ill-appearing female in the semi-Ernst position in bed in no distress. Weight: 52.1 kg.? BMI: 21.7. HEENT:??Normocephalic, atraumatic.? PERRL, EOMI. Sclera anicteric. Moist mucous membranes. Neck:??Supple. No JVD or bruits. Respiratory:?Lungs are clear to auscultation bilaterally. Cardiovascular:??Regular rate and rhythm with S1-S2. Gastrointestinal:??Abdomen is soft, nontender, and nondistended with positive bowel sounds. Skin:??Warm and dry.? No rash or lesions on limited exam. Extremities:??No clubbing or edema. Radial and pedal pulses intact. Left foot is blue/purple and cool to touch. Nails are thickened yellow with decreased capillary refill. Left pedal pulses easily palpable. Patient reports that this is a chronic finding for many years. Neurological:??Alert and oriented x4.? Cranial nerves 2-12 are grossly intact. Speech is slow but clear. Occasional stuttering of words. No facial asymmetry. Tongue is midline. She has dense left-sided hemiplegia, upper extremity greater than lower extremity. Psychiatric:??Pleasant and cooperative. Appropriate. DS: Data Data Completed and Pending Labs on day of discharge: Labs from last 24 hours 09/19/23 09/19/23 09/18/23 11:17 04:45 14:58 WBC 5.8 RBC 3.26 L Hgb 10.1 L Hct 30.9 L MCV 94.8 MCH 31.0 MCHC
--- NOTE | 2023-09-19 15:01 | PC.NURSE ---
Left a general message to Shyam informing her that her mom was going back to the [facility]. NO answer.
== END 2023-09-19 15:53 | disposition home or self-care (01) ==
LOC: ANHED 14:05 → ANHIMU 16:56
PROVIDERS: Emergency Medicine; Physician Assistant; Admitting Provider Student in an Organized Health Care Education/Training Program; Emergency Provider Emergency Medicine; PCP Family Medicine; Visit Provider Student in an Organized Health Care Education/Training Program
DX: R41.0 Disorientation, unspecified (principal); E87.1 Hypo-osmolality and hyponatremia; L81.9 Disorder of pigmentation, unspecified; D72.829 Elevated white blood cell count, unspecified; G40.909 Epilepsy, unspecified, not intractable, without status epilepticus; I69.354 Hemiplegia and hemiparesis following cerebral infarction affecting left non-dominant side; I13.0 Hypertensive heart and chronic kidney disease with heart failure and stage 1 through stage 4 chronic kidney disease, or unspecified chronic kidney disease; N18.30 Chronic kidney disease, stage 3 unspecified; I50.40 Unspecified combined systolic (congestive) and diastolic (congestive) heart failure; D63.1 Anemia in chronic kidney disease; R00.1 Bradycardia, unspecified; K21.9 Gastro-esophageal reflux disease without esophagitis; Z20.822 Contact with and (suspected) exposure to COVID-19; F10.90 Alcohol use, unspecified, uncomplicated; Z79.1 Long term (current) use of non-steroidal anti-inflammatories (NSAID); Z79.82 Long term (current) use of aspirin; Z79.899 Other long term (current) drug therapy; Z82.3 Family history of stroke
CPT/HCPCS: 36415; 70496; 70498; 70551; 71045; 80048; 80053; 81001; 82607; 82746; 83735; 84443; 85025; 85027; 85610; 85730; 86140; 87637; 93005; 96360; 99285; A9270; G0378; J7030; Q9967

== ENCOUNTER 2023-10-09 12:58 | Emergency (ER) | payer OTHER, SELFPAY ==
[2023-10-09] VITALS (15 sets, daily range): BP systolic 127–152; BP diastolic 69–89; PULSE 65–82; RESP 12–20; TEMP 36.3; O2SAT 96–100
--- NOTE | ~2023-10-09 | US_ITS ---
EXAMINATION: US arterial ankle brachial ind DATE: 10/09/2023 14:29 INDICATION: Discoloration the left lower limb within the toes of the left foot. There is also numbnes s, tingling and coolness the left lower extremity. TECHNIQUE: Segmental pressures and plethysmographic and Doppler waveforms of the brachial and lower e xtremity arteries were obtained. COMPARISON: None. FINDINGS: Right and left brachial artery pressures of 146 mm Hg and 152 mm Hg, respectively, are concordant (no rmal difference <= 30 mmHg). The right ankle-brachial index (TAYLA) is 1.12 (normal >= 0.9-1.0). The right great toe-brachial index (TBI) is 0.64 (normal >= 0.65). Arterial Doppler waveforms are biphasic with brisk systolic upstrokes at both right posterior tibial and dorsalis pedis arteries. The left TAYLA is 1.12. The left TBI is 0.57. Arterial Doppler waveforms are biphasic with brisk systol ic upstrokes at both left posterior tibial and dorsalis pedis arteries. IMPRESSION: 1. Mild arterial occlusive disease to bilateral lower extremities with normal bilateral ABIs and mild ly decreased bilateral TBIs. Reviewed, dictated and finalized at location A. WARE RELIABILITY ENGINEER IMPRESSION: 1. Mild arterial occlusive disease to bilateral lower extremities with normal b ilateral ABIs and mildly decreased bilateral TBIs.
[2023-10-09 13:23] LABS: Glucose Point of Care 40 mg/dl (65-105)
--- NOTE | 2023-10-09 13:28 | PC.NURSE ---
Verbal order order Dextrose 50% IV push discovery manager from [facility]
[2023-10-09] MEDS: DEXTROSE 50% 25 GM/50 ML SYRINGE IV PUSH (13:30)
[2023-10-09 13:36] LABS: Basophils Absolute Auto 0.1 K/mm3 (0.0-0.1); Eosinophils Absolute Auto 0.2 K/mm3 (0-0.3); Eosinophils Percent Auto 2.3 % (0-4.4); Hemoglobin 12.6 g/dL (12.0-15.0); Immature Granulocyte Absolute 0.02 K/mm3 (0.00-0.031); Immature Granulocyte Percent A 0.2 % (0-0.5); Lymphocytes Absolute Auto 2.48 K/mm3 (0.9-3.2); Lymphocytes Percent Auto 28.4 % (18.3-44.2); Mean Corpuscular HGB Conc 32.3 g/dl (32-36); Mean Corpuscular Hemoglobin 30.5 pg (26-34); Mean Corpuscular Volume 94.4 fl (80-100); Monocytes Absolute Auto 0.8 K/mm3 (0.1-0.6); Monocytes Percent Auto 9.4 % (2.6-8.5); Neutrophils Absolute Auto 5.1 K/mm3 (1.3-6.7); Neutrophils Percent Auto 58.7 % (45.5-73.1); Platelet Count Result 300 k/mm3 (150-375); Red Blood Count 4.13 M/mm3 (4.2-5.4); Red Cell Distribution Width 12.4 % (11.5-14.5); White Blood Count 8.7 K/mm3 (4.5-10.0)
[2023-10-09 13:47] LABS: Glucose Point of Care 155 mg/dl (65-105)
[2023-10-09 13:48] LABS: INR 0.9; Prothrombin Time 12.7 Seconds (11.1-14.7)
[2023-10-09 13:49] LABS: Partial Thromboplastin Time 31.2 SECONDS (22.3-36.8)
--- NOTE | 2023-10-09 16:10 | ED.GENADULT ---
HPI - General Adult General Chief complaint: Extremity Problem,Nontraumatic Stated complaint: edema to L foot/?pulseless Time Seen by Provider: 10/09/23 13:09 Source: patient Mode of arrival: EMS Limitations: no limitations History of Present Illness HPI narrative: 58-year-old with a history of CVA presented residing [place] a correction presents to the ER with a complaint of left lower leg discoloration. she presently has no complaints. Onset (ago): day(s) (1) Location: lower extremity Radiation: non-radiation Severity: mild Associated symptoms: denies other symptoms Related Data Home Medications Medication Instructions Recorded Confirmed acetaminophen 325 mg tablet 325 mg PO Q4H PRN Pain 10/21/21 09/18/23 folic acid 1 mg tablet 5 mg PO DAILY 10/21/21 09/18/23 lacosamide 100 mg tablet (Vimpat) 100 mg PO Q12H 10/21/21 09/18/23 levetiracetam 750 mg tablet 1,500 mg PO BID 10/21/21 09/18/23 melatonin 3 mg tablet 3 mg PO HS 10/21/21 09/18/23 aspirin 81 mg chewable tablet 81 mg PO DAILY 02/21/22 09/18/23 omeprazole 20 mg capsule,delayed 20 mg PO DAILY 02/21/22 09/18/23 release Cymbalta 30 mg PO DAILY 08/16/22 09/18/23 pregabalin 150 mg capsule (Lyrica) 150 mg PO TID 08/16/22 09/18/23 Allergies Allergy/AdvReac Type Severity Reaction Status Date / Time No Known Allergies Allergy Unknown Verified 09/18/23 13:29 Review of Systems Review of Systems: All systems reviewed & are unremarkable except as noted in HPI and below Constitutional: Constitutional: Reports no additional constitutional complaints Eyes: Eyes: Reports no additional eye complaints ENT: Reports system reviewed and no additional complaints, except as documented Cardiovascular: Cardiovascular: Reports no additional cardiovascular complaints Respiratory: Respiratory: Reports no additional respiratory complaints Gastrointestinal: Gastrointestinal: Reports no additional gastrointestinal complaints Musculoskeletal: Musculoskeletal: Reports as per HPI Neurologic: Reports system reviewed and no additional complaints, except as documented Psychiatric: Psychiatric: Reports no additional psychiatric complaints Endocrine: Endocrine: Reports no additional endocrine complaints Hematologic/Lymphatic: Hematologic/Lymphatic: Reports no additional hematologic/lymphatic complaints PMFSH Past Medical History Medical History Chronic anemia Chronic hyponatremia Chronic kidney disease, stage 3 Combined systolic and diastolic congestive heart failure Poorly documented in chart. 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 Dysphagia improved, G-tube out. Hypertension Kidney stones Seizure disorder Surgical History Surgical History History of craniotomy History of cystoscopy (12/2004) History of gastrostomy tube placement Removed 08/04/2022. History of ureter stent (12/2004) Family History Family History Mother Alzheimer's dementia A-fib Father Cerebrovascular accident Social History Social History Social History: Surrogate medical decision maker: Shyam Figueroa, daughter. Code status: Full code. Smoking status: Unknown if ever smoked Tobacco type: cigarettes Alcohol intake: unknown Drinks per week: 2 Substance use: unknown Substance use type: marijuana Last use: 09/24/21 Do You Feel Safe in your Home?: No Lack of Transportation: No Lack of Food: Never True Current Housing: Decline to Answer Concerned About Future Housing: No Difficulty Paying Gas/Electric Bills: No Difficulty Paying for Meds: No Currently Unemployed: No Education: High School Diploma/GED Difficulty w/ Childcare or Family Care: No Spiritual care concerns: No Exam Narrative: GENERAL: Well-appea
[2023-10-09 16:42] LABS: Alanine Aminotransferase 21 U/L (6-35); Alkaline Phosphatase 74 U/L (38-126); Anion Gap 5 mmol/L (8-16); Aspartate Amino Transferase 30 U/L (14-36); Bilirubin,Total 0.3 mg/dL (0.2-1.3); Blood Urea Nitrogen 10 mg/dL (7-17); Calcium 9.4 mg/dL (8.4-10.2); Carbon Dioxide 30 mmol/L (22-30); Chloride 101 mmol/L (98-107); Estimated CRCL calculation 79 ml/min; Estimated Glomerular Filt Rate > 60; Glucose 114 mg/dL (65-110); Potassium 4.1 mmol/L (3.4-5.0); Sodium 136 mmol/L (137-145)
== END 2023-10-09 18:42 ==
PROVIDERS: Emergency Provider Family Medicine; PCP Family Medicine
DX: I70.203 Unspecified atherosclerosis of native arteries of extremities, bilateral legs (principal); I12.9 Hypertensive chronic kidney disease with stage 1 through stage 4 chronic kidney disease, or unspecified chronic kidney disease; N18.30 Chronic kidney disease, stage 3 unspecified; G40.909 Epilepsy, unspecified, not intractable, without status epilepticus; D64.9 Anemia, unspecified; E87.1 Hypo-osmolality and hyponatremia; Z87.442 Personal history of urinary calculi
CPT/HCPCS: 36415; 80053; 82948; 85025; 85610; 85730; 93922; 96374; 99284

== ENCOUNTER 2023-10-17 11:58 | Emergency (ER) | payer OTHER, SELFPAY ==
--- NOTE | ~2023-10-17 | CT_ITS ---
Noncontrast CT scan of the cervical spine Technique: Multiple contiguous axial [address] images of the cervical spine were obtained and rec onstructed in 2D sagittal and coronal planes on the acquisition scanner. Dose reduction technique was used on this scan by utilizing automated exposure control, adjustment of the mA and/or kV according to patient size. The dose-length product (DLP) was 98.53 mGy-cm. Clinical History: Pain Findings: No fractures or dislocations. There is advanced degenerative disc narrowing at C4-C5, C5-C 6, and C6-C7. There is additional degenerative changes reticulation of the odontoid process with the anterior arch of C1, mild. There are scattered facet joint degenerative changes in the cervical spine . There is probable left neural foraminal narrowing at C4-C5. There is bilateral neural foraminal juarez rowing probably present at C5-C6. No prevertebral soft tissue swelling. Impression: No fracture or subluxation of the cervical spine. Degenerative spondylosis, as above. Reviewed, dictated and finalized at [facility]. PHONE MAINTAINER Impression: No fracture or subluxation of the cervical spine. Degenerative spondylosis, as above.
--- NOTE | ~2023-10-17 | CT_ITS ---
CT head without contrast Indication: Status post fall COMPARISON: 09/18/2023 Technique: Serial scans were obtained through the brain without the administration of contrast. Dose reduction technique was used on this scan by utilizing automated exposure control and iterative recon struction technique. The dose-length product (DLP) was 605.33 mGy-cm. Findings: There is no evidence of intracranial hemorrhage, mass lesion, or acute infarct. 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 The ventricl es and subarachnoid spaces are dilated, consistent with mild atrophy. Low attenuation regions are se en within the periventricular white matter bilaterally, likely representing changes from chronic micr ovascular ischemic disease. There is no evidence of edema, mass effect or midline shift. The visual ized paranasal sinuses and mastoid air cells are clear. Impression: No intracranial hemorrhage, mass, or acute infarct. Chronic right frontal lobe encephalomalacia with overlying right frontal craniotomy. Atrophy and chronic white matter changes, as above. Reviewed, dictated and finalized at location . RN OPERATOR Impression: No intracranial hemorrhage, mass, or acute infarct. Chronic right frontal lobe encephalomalacia with overlying right frontal cranio daljit. Atrophy and chronic white matter changes, as above.
[2023-10-17 11:55] VITALS: BP 95/64; PULSE 63; RESP 24; TEMP 36.3; O2SAT 99
[2023-10-17 13:45] VITALS: BP 121/67; PULSE 61; RESP 16; O2SAT 100
--- NOTE | 2023-10-17 14:41 | ED.FALL ---
HPI - Fall General Chief Complaint: Fall Stated Complaint: fall, ear lac Time Seen by Provider: 10/17/23 13:35 Source: patient Limitations: no limitations History of Present Illness HPI Narrative: Patient is a 58-year-old female presents to the emergency department complaining of a headache. Patient states the fall occurred just prior to arrival she was getting of her wheelchair and she slipped and hit the right side of her head, denies loss of consciousness, denies use of blood thinners. Patient denies any pain anywhere at this time and overall feels well. Patient does not over last tetanus shot was. Patient states she has a cut to her right ear with minimal bleeding. Patient denies any hearing changes, loose or chipped teeth, chest pain, difficulty breathing, abdominal pain, nausea, vomiting, diarrhea, melena, hematochezia, urinary discomfort, new numbness or weakness. Patient states her left lower extremity is chronically discolored and she has chronic vascular abnormalities without any acute changes or any pain or new numbness or paresthesias or weakness. Patient admits to chronic left-sided weakness from a stroke. Related Data Home Medications Medication Instructions Recorded Confirmed acetaminophen 325 mg tablet 325 mg PO Q4H PRN Pain 10/21/21 09/18/23 folic acid 1 mg tablet 5 mg PO DAILY 10/21/21 09/18/23 lacosamide 100 mg tablet (Vimpat) 100 mg PO Q12H 10/21/21 09/18/23 levetiracetam 750 mg tablet 1,500 mg PO BID 10/21/21 09/18/23 melatonin 3 mg tablet 3 mg PO HS 10/21/21 09/18/23 aspirin 81 mg chewable tablet 81 mg PO DAILY 02/21/22 09/18/23 omeprazole 20 mg capsule,delayed 20 mg PO DAILY 02/21/22 09/18/23 release Cymbalta 30 mg PO DAILY 08/16/22 09/18/23 pregabalin 150 mg capsule (Lyrica) 150 mg PO TID 08/16/22 09/18/23 Allergies Allergy/AdvReac Type Severity Reaction Status Date / Time No Known Allergies Allergy Unknown Verified 10/17/23 12:19 Review of Systems Review of Systems: A 10 system review of systems was completed on the patient and is negative except for what is stated in the HPI. Nursing and ancillary documentation was reviewed. [facility] Past Medical History Medical History Chronic anemia Chronic hyponatremia Chronic kidney disease, stage 3 Combined systolic and diastolic congestive heart failure Poorly documented in chart. 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 Dysphagia improved, G-tube out. Hypertension Kidney stones Seizure disorder Surgical History Surgical History History of craniotomy History of cystoscopy (12/2004) History of gastrostomy tube placement Removed 08/04/2022. History of ureter stent (12/2004) Family History Family History Mother Alzheimer's dementia A-fib Father Cerebrovascular accident Social History Social History Social History: Surrogate medical decision maker: Shyam Figueroa, daughter. Code status: Full code. Smoking status: Unknown if ever smoked Tobacco type: cigarettes Alcohol intake: unknown Drinks per week: 2 Substance use: unknown Substance use type: marijuana Last use: 09/24/21 Do You Feel Safe in your Home?: No Lack of Transportation: No Lack of Food: Never True Current Housing: Decline to Answer Concerned About Future Housing: No Difficulty Paying Gas/Electric Bills: No Difficulty Paying for Meds: No Currently Unemployed: No Education: High School Diploma/GED Difficulty w/ Childcare or Family Care: No Spiritual care concerns: No Comments At time of signature, I have reviewed and agree with nursing past medical, surgical, social and family history unless otherwise noted. Please see the nursing chart for further information. There is no relevant family
--- NOTE | 2023-10-17 14:49 | ECG_ITS ---
Measurements Intervals [place] Rate: 71 P: 55 UT: 158 QRS: 23 QRSD: 93 T: 215 QT: 353 QTc: 385 Interpretive Statements SINUS RHYTHM LOW QRS VOLTAGE IN PRECORDIAL LEADS [QRS DEFLECTION < 1.0 mV IN CHEST LEADS] PROBABLE INFERIOR MYOCARDIAL INFARCTION , PROBABLY OLD [35 ms Q WAVE IN II/aVF] ABNORMAL ECG COMPARED TO ECG 09/18/2023 13:19:50 SINUS RHYTHM NOW PRESENT Electronically Signed On 10-18-2023 11:42:22 AMBULANCE DISPATCHER by Diogenes Hope M.D.
[2023-10-17 15:32] VITALS: BP 120/72; PULSE 64; RESP 13; O2SAT 100
[2023-10-17] MEDS: ACETAMINOPHEN 500 MG TABLET 1000 MG PO (16:14)
[2023-10-17] MEDS: CIPROFLOXACIN 500 MG TAB PO (16:14)
[2023-10-17] MEDS: TETANUS,DIPHTHERIA,AC PERTUSSIS ADULT (0.5 ML) BOOSTRIX IM (16:14)
--- NOTE | 2023-10-17 16:16 | WPDCN ---
Assessment and Plan Assessment and plan (1) Laceration of ear, external, right: Qualifiers: Encounter type: initial encounter Qualified Code(s): S01.311A - Laceration without foreign body of right ear, initial encounter Code(s): S01.311A - Laceration without foreign body of right ear, initial encounter Status: Acute Assessment and Plan: Recommend ciprofloxacin b.i.d. for 10 days. Triple antibiotic ointment t.i.d. for the next 2 weeks follow up in about 10 days in my office HPI Data of Consult Date/Time: 10/17/23 16:16 Primary Care Provider: Sharon Cuevas, Consult Narrative Narrative: Martina Figueroa is a 58 year old female fell has a through and through laceration of the superior auricle auricular [place]. And on postauricular region Review of Systems Review of Systems: All systems reviewed & are unremarkable except as noted in HPI and below PMFSH Past Medical History Medical History Chronic anemia Chronic hyponatremia Chronic kidney disease, stage 3 Combined systolic and diastolic congestive heart failure Poorly documented in chart. 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 Dysphagia improved, G-tube out. Hypertension Kidney stones Seizure disorder Surgical History Surgical History History of craniotomy History of cystoscopy (12/2004) History of gastrostomy tube placement Removed 08/04/2022. History of ureter stent (12/2004) Family History Family History Mother Alzheimer's dementia A-fib Father Cerebrovascular accident Social History Social History Social History: Surrogate medical decision maker: Shyam Figueroa, daughter. Code status: Full code. Smoking status: Unknown if ever smoked Tobacco type: cigarettes Alcohol intake: unknown Drinks per week: 2 Substance use: unknown Substance use type: marijuana Last use: 09/24/21 Do You Feel Safe in your Home?: No Lack of Transportation: No Lack of Food: Never True Current Housing: Decline to Answer Concerned About Future Housing: No Difficulty Paying Gas/Electric Bills: No Difficulty Paying for Meds: No Currently Unemployed: No Education: High School Diploma/GED Difficulty w/ Childcare or Family Care: No Spiritual care concerns: No Meds Home Medications and Allergies Home Medications Medication Instructions Recorded Confirmed Type acetaminophen 325 mg tablet 325 mg PO Q4H PRN Pain 10/21/21 09/18/23 History folic acid 1 mg tablet 5 mg PO DAILY 10/21/21 09/18/23 History lacosamide 100 mg tablet (Vimpat) 100 mg PO Q12H 10/21/21 09/18/23 History levetiracetam 750 mg tablet 1,500 mg PO BID 10/21/21 09/18/23 History melatonin 3 mg tablet 3 mg PO HS 10/21/21 09/18/23 History aspirin 81 mg chewable tablet 81 mg PO DAILY 02/21/22 09/18/23 History omeprazole 20 mg capsule,delayed 20 mg PO DAILY 02/21/22 09/18/23 History release Cymbalta 30 mg PO DAILY 08/16/22 09/18/23 History pregabalin 150 mg capsule (Lyrica) 150 mg PO TID 08/16/22 09/18/23 History atorvastatin 40 mg tablet 40 mg PO DAILY #7 tabs 08/19/22 09/18/23 Rx carvedilol 3.125 mg tablet (Coreg) 3.125 mg PO Q12HR #14 tabs 08/19/22 09/18/23 Rx loperamide 2 mg tablet 2 mg PO QID PRN Diarrhea #7 tabs 08/19/22 09/18/23 Rx acetaminophen 500 mg tablet 500 mg PO Q6H PRN pain #30 tabs 10/17/23 Rx ciprofloxacin 500 mg/5 mL oral 500 mg (5 mL) PO BID 7 days #70 mL 10/17/23 Rx suspension Allergies Allergy/AdvReac Type Severity Reaction Status Date / Time No Known Allergies Allergy Unknown Verified 10/17/23 12:19 Vital Signs Vital Signs - 24 hr 10/17/23 11:55 10/17/23 13:45 10/17/23 15:32 Temperature 36.3 C L Pulse Rate 63 61 64 Respiratory Rate 24 H 16 13
--- NOTE | 2023-10-17 16:17 | WPDPROCEDUR ---
Procedures Laceration Laceration 1: Dressing: all consents obtained 10 cm laceration including through and through in the ear and postauricular 3 cm through the skin. Wound copiously irrigated with a L sterile normal saline. Injected with total of 5 cc 1% lidocaine 1 100,000 parts epinephrine. Postauricular on the right closed with 3 interrupted 3-0 Vicryl sutures including skin and deep tissue. No cosmetic concern in this region. Cartilage pain with 3 interrupted 4-0 Vicryl sutures postauricular incision closed with a combination of interrupted and running 4-0 chromic suture anterior Naveen when sitting closed with a combination of interrupted and running 5 0 fast suture the entire ear was covered with triple antibiotic ointment. Patient tolerated the procedure well reported no pain no bleeding.
[2023-10-17 16:23] VITALS: BP 125/74; PULSE 73; RESP 16; O2SAT 98
--- NOTE | 2023-10-17 17:07 | PC.NURSE ---
Attempted to call [facility] to give update regarding pt and pt being discharged. Received no answer
[2023-10-17 17:28] VITALS: BP 117/69; PULSE 73; RESP 18; TEMP 36.5; O2SAT 99
== END 2023-10-17 17:50 ==
PROVIDERS: Emergency Provider Student in an Organized Health Care Education/Training Program; PCP Family Medicine
DX: S01.311A Laceration without foreign body of right ear, initial encounter (principal); D64.9 Anemia, unspecified; I13.0 Hypertensive heart and chronic kidney disease with heart failure and stage 1 through stage 4 chronic kidney disease, or unspecified chronic kidney disease; N18.30 Chronic kidney disease, stage 3 unspecified; I50.9 Heart failure, unspecified; G40.909 Epilepsy, unspecified, not intractable, without status epilepticus; Z87.442 Personal history of urinary calculi; Z23 Encounter for immunization; W05.0XXA Fall from non-moving wheelchair, initial encounter
CPT/HCPCS: 12055; 70450; 72125; 90471; 90715; 93005; 99284; A9270

== ENCOUNTER 2023-11-09 11:02 | Inpatient (IN) | payer OTHER, SELFPAY ==
[2023-11-09] VITALS (48 sets, daily range): BP systolic 94–139; BP diastolic 57–91; PULSE 63–93; RESP 12–26; TEMP 36.4–37.6; O2SAT 97–100; BMI 19.5; BMI 19.3
--- NOTE | ~2023-11-09 | XR_ITS ---
Clinical Indication: Left-sided weakness PA and lateral views of the chest: Comparison: 09/19/2023 Findings: The lungs are clear, without evidence of focal consolidation or pleural effusion. Cardiome diastinal silhouette is within normal limits. Bones and soft tissues are unremarkable. Impression: Normal chest. Reviewed, dictated and finalized at [facility]. ICE SUPERINTENDENT Impression: Normal chest.
--- NOTE | ~2023-11-09 | CT_ITS ---
EXAMINATION: CT brain wo con INDICATION: Altered mental status COMPARISON: 10/17/2023 TECHNIQUE: Standard unenhanced head CT. The dose-length product (DLP) was 756.67 mGy-cm. The mA was a djusted according to patient size. Iterative reconstruction technique was employed. FINDINGS: Again noted in our a right frontal craniotomy defect with underlying encephalomalacia of th e right frontal lobe. There is an unchanged, chronic subdural fluid collection overlying the right fr ontal lobe. No acute intraparenchymal hemorrhage. No evidence of mass lesion. No evidence of acute in farction. There is ex vacuo enlargement of the right lateral ventricle. There is mild periventricular and subcortical hypodensity probably related to small vessel ischemic disease. There is mild promine nce of the sulci and ventricles related to cerebral atrophy. Intracranial calcified cerebral atherosc lerosis is noted. No mass effect or midline shift. The orbits and soft tissues are unremarkable. The visualized sinuses and mastoid air cells are well aerated. IMPRESSION: 1. Changes of right frontal craniotomy and underlying right frontal lobe encephalomalacia without acu te intracranial abnormality. 2. Age related findings. Reviewed, dictated and finalized at location L. STEN TENDER IMPRESSION: 1. Changes of right frontal craniotomy and underlying right frontal lobe enceph alomalacia without acute intracranial abnormality. 2. Age related findings.
--- NOTE | ~2023-11-09 | XR_ITS ---
Supine and upright views of the abdomen Clinical history: Rectal impaction COMPARISON: 10/21/2021 Findings: Bowel gas pattern is nonspecific. Enlargement of stool present throughout the large bowel i nto the rectum. No evidence for obstruction or free air. No abnormal mass lesion or calcification is seen. Osseous structures are intact. Impression: Fecal impaction and marked constipation. Reviewed, dictated and finalized at location . Impression: Fecal impaction and marked constipation.
--- NOTE | ~2023-11-09 | XR_ITS ---
Supine and upright views of the abdomen Clinical history: Fecal impaction COMPARISON: 11/13/2023 Findings: Bowel gas pattern is nonspecific. Large amount of stool throughout the large bowel is uncha nged. No evidence for obstruction or free air. No abnormal mass lesion or calcification is seen. Osse ous structures are intact. Impression: Stable fecal impaction and severe constipation. Reviewed, dictated and finalized at location . Impression: Stable fecal impaction and severe constipation.
--- NOTE | ~2023-11-09 | XR_ITS ---
EXAMINATION: XR enema water soluble DATE: 11/14/2023 11:01 INDICATION: Constipation. TECHNIQUE: A bridge crane operator radiograph was obtained. A catheter was inserted into the patient's rectum. Contra st was infused by gravity. Fluoroscopic spot images and conventional radiographs were obtained. Fluor oscopy exposure time was 0.2 minutes. The total number of images was 19. COMPARISON: CT abdomen and pelvis 11/09/2023 FINDINGS: There is a large volume of stool in the distal colon with marked distention of the rectosig moid. No stricture. There are diverticula in the sigmoid colon. The ascending and transverse colon we re not opacified. IMPRESSION: 1. Large volume of stool in the distal colon with marked distention of the rectosigmoid. Reviewed, dictated and finalized at location A. IMPRESSION: 1. Large volume of stool in the distal colon with marked distention of the rect osigmoid.
--- NOTE | ~2023-11-09 | CT_ITS ---
EXAMINATION: CT abdomen pelvis w con DATE: 11/09/2023 13:44 INDICATION: Abdominal pain TECHNIQUE: Computed tomography (CT) of the abdomen and pelvis was performed with 100 mL Omnipaque-350 intravenous contrast. Automated exposure control and iterative reconstruction technique were employe d. The dose-length product was 256.83 mGy-cm. COMPARISON: None FINDINGS: Mild bibasilar atelectasis. Borderline heart size. Atherosclerotic coronary artery calcifications. No pericardial or pleural effusion. Liver, gallbladder, spleen, pancreas, bilateral adrenal glands and left kidney are normal. Small region of cortical scarring at the upper pole of the right kidney likel y sequela prior infection or infarction. There also a few subcentimeter right renal cyst. There is a large ball of stool measuring 10.4 x 9.3 cm at the rectum with additional stool extending proximally throughout the sigmoid colon. There is mild wall thickening and surrounding inflammatory stranding at the sigmoid colon and rectum consistent with likely stercoral colitis. Small bowel and appendix are normal. The ball of stool exerts mass effect upon the bladder which is compressed against the anterio r abdominal wall. The uterus is not identified and has likely been surgically resected. No abscess or free intraperitoneal gas or fluid. No pathologically enlarged abdominal or pelvic lymphadenopathy. L 2 burst fracture with 20% anterior vertebral body height loss and 3 mm retropulsion resulting in mild central canal stenosis at this level. There is also a 4 mm anterolisthesis L5 on S1. IMPRESSION: 1. Constipation and likely fecal impaction with 10.4 x 9.3 similar ball of stool at the rectum. 2. Wall thickening and infiltration surrounding the rectum and sigmoid colon consistent with likely s econdary stercoral colitis. Other less likely etiologies of colitis would include infectious, inflamm atory or least likely ischemic in etiology. Reviewed, dictated and finalized at location A. LOPE ADDRESSER IMPRESSION: 1. Constipation and likely fecal impaction with 10.4 x 9.3 similar ball of stoo l at the rectum. 2. Wall thickening and infiltration surrounding the rectum and sigmoid colon co nsistent with likely secondary stercoral colitis. Other less likely etiologies of colitis would include infectious, inflammatory or least likely ischemic in e tiology.
--- NOTE | ~2023-11-09 | XR_ITS ---
Supine and upright views of the abdomen Clinical history: Fecal impaction COMPARISON: 11/14/2023 Findings: Bowel gas pattern is nonspecific. No evidence for obstruction or free air. No abnormal mass lesion or calcification is seen. Osseous structures are intact. Impression: No significant abnormality is seen. Reviewed, dictated and finalized at [facility]. Impression: No significant abnormality is seen.
--- NOTE | 2023-11-09 11:36 | ED.AMS ---
HPI - Altered Mental Status General Chief Complaint: Altered Mental Status Stated Complaint: ams Time Seen by Provider: 11/09/23 11:35 History of Present Illness HPI narrative: Patient is a 58-year-old female here from [place] for mental status change. She states that she has been struggling with constipation over the last 4 days. She notes that this is a recurrent issue for her since her G-tube was removed a year ago. She notes that this morning she was lying in bed and was feeling very constipated. She states that she was having a hard time waking up and feeling a bit confused at that time. She notes that staff had trouble waking her up and that is what prompted her to come into the emergency department. She was having some double vision earlier during this episode however she has recurrent issues with double vision since a large CVA in the past. She additionally has baseline left-sided deficits. She denies any new numbness or weakness in her upper or lower extremities. She feels back to her normal self at this time. Currently complaining of some abdominal discomfort. Denies urinary symptoms. Related Data Home Medications Medication Instructions Recorded Confirmed acetaminophen 325 mg tablet 325 mg PO Q4H PRN Pain 10/21/21 10/29/23 folic acid 1 mg tablet 5 mg PO DAILY 10/21/21 10/29/23 lacosamide 100 mg tablet (Vimpat) 100 mg PO Q12H 10/21/21 10/29/23 levetiracetam 750 mg tablet 1,500 mg PO BID 10/21/21 10/29/23 melatonin 3 mg tablet 3 mg PO HS 10/21/21 10/29/23 aspirin 81 mg chewable tablet 81 mg PO DAILY 02/21/22 10/29/23 omeprazole 20 mg capsule,delayed 20 mg PO DAILY 02/21/22 10/29/23 release Cymbalta 30 mg PO DAILY 08/16/22 09/18/23 pregabalin 150 mg capsule (Lyrica) 150 mg PO TID 08/16/22 10/29/23 baclofen 5 mg tablet 5 mg PO DAILY 10/26/23 10/29/23 duloxetine 30 mg capsule,delayed 30 mg PO DAILY 10/26/23 10/29/23 release (Cymbalta) folic acid 1 mg tablet 1 mg PO DAILY 10/26/23 10/29/23 lidocaine 5 % topical patch 1 patch topical DAILY 10/26/23 10/29/23 polyethylene glycol 3350 17 gram 17 g PO DAILY 10/26/23 10/29/23 oral powder packet (Miralax) pregabalin 150 mg capsule 150 mg PO TID 10/26/23 10/29/23 Allergies Allergy/AdvReac Type Severity Reaction Status Date / Time No Known Allergies Allergy Unknown Verified 10/17/23 12:19 Review of Systems Review of Systems: All systems reviewed & are unremarkable except as noted in HPI and below PMFSH Past Medical History Medical History (Updated 11/09/23 @ 17:30 by Olivia Muro MD) Chronic anemia Chronic hyponatremia Chronic kidney disease, stage 3 Combined systolic and diastolic congestive heart failure Poorly documented in chart. Hemorrhagic stroke September 2021, persistent left hemiparesis, craniotomies were related to this Hypertension Kidney stones Seizure disorder Surgical History Surgical History (Updated 11/09/23 @ 17:24 by Taiwo Turcios MD) History of craniotomy 3 craniotomies within a week in September 2021 History of cystoscopy (12/2004) History of gastrostomy tube placement Removed 08/04/2022. History of ureter stent (12/2004) Family History Family History Mother Alzheimer's dementia A-fib Father Cerebrovascular accident Hypertension Heart disease Cancer Sibling Cancer Depression Social History Social History Social History: Surrogate medical decision maker: Shyam Figueroa, daughter. Code status: Full code. Smoking status: Unknown if ever smoked Tobacco type: cigarettes Alcohol intake: unknown Drinks per week: 2 Substance use: unknown Substance use type: marijuana Last use: 09/24/21 Do You Feel Safe in your Home?: No Lack of Transportation: No Lack of Food: Never True Current Housing: Decline to Answer Concerned About Future Housing: No Difficulty Paying Gas/Electric Bills: No Di
[2023-11-09] MEDS: LACTATED RINGERS 1,000 ML 999 ML IV CONT (11:54)
[2023-11-09 12:35] LABS: Appearance Urine Clear (Clear); Bilirubin Urine Negative (Negative); Blood Urine Negative (Negative); Color Urine Yellow (Yellow); Glucose Urine UA Negative (Negative); Ketones Urine Negative (Negative); Leukocyte Esterase Ur Negative LEU/UL (Negative); Nitrate Urine Negative (Negative); Protein Urine Negative (Negative); Specific Grav Ur 1.011 (1.001-1.035); Urobilinogen Urine 0.2 mg/dL (<2.0); pH Urine 6.5 (5.0-9.0)
[2023-11-09 12:42] LABS: Add Urine Microscopic? NO
[2023-11-09 13:00] LABS: Basophils Percent Auto 0.4 % (0.2-1.2); Eosinophils Absolute Auto 0.1 K/mm3 (0-0.3); Eosinophils Percent Auto 0.5 % (0-4.4); Hematocrit 34.7 % (37.0-47.0); Hemoglobin 11.2 g/dL (12.0-15.0); Immature Granulocyte Absolute 0.03 K/mm3 (0.00-0.031); Immature Granulocyte Percent A 0.3 % (0-0.5); Lymphocytes Absolute Auto 0.69 K/mm3 (0.9-3.2); Lymphocytes Percent Auto 6.9 % (18.3-44.2); Mean Corpuscular HGB Conc 32.3 g/dl (32-36); Mean Corpuscular Hemoglobin 30.9 pg (26-34); Mean Corpuscular Volume 95.6 fl (80-100); Mean Platelet Volume 8.7 fl (7.4-10.4); Monocytes Absolute Auto 0.8 K/mm3 (0.1-0.6); Neutrophils Absolute Auto 8.3 K/mm3 (1.3-6.7); Neutrophils Percent Auto 83.9 % (45.5-73.1); Platelet Count Result 225 k/mm3 (150-375); Red Blood Count 3.63 M/mm3 (4.2-5.4); Red Cell Distribution Width 12.8 % (11.5-14.5); White Blood Count 9.9 K/mm3 (4.5-10.0)
[2023-11-09 13:12] LABS: Alanine Aminotransferase 17 U/L (6-35); Albumin Level 3.9 g/dL (3.5-5.1); Alkaline Phosphatase 75 U/L (38-126); Anion Gap 9 mmol/L (8-16); Aspartate Amino Transferase 27 U/L (14-36); Bilirubin,Total 0.7 mg/dL (0.2-1.3); Blood Urea Nitrogen 12 mg/dL (7-17); CRP < 0.5 mg/dL (<1.0); Calcium 9.6 mg/dL (8.4-10.2); Carbon Dioxide 20 mmol/L (22-30); Chloride 99 mmol/L (98-107); Estimated CRCL calculation 68 ml/min; Estimated Glomerular Filt Rate > 60; Glucose 94 mg/dL (65-110); Magnesium 1.5 mg/dL (1.6-2.3); Potassium 4.4 mmol/L (3.4-5.0); Sodium 128 mmol/L (137-145)
[2023-11-09 13:14] LABS: INR 0.9
[2023-11-09 13:15] LABS: Partial Thromboplastin Time 27.8 SECONDS (22.3-36.8)
[2023-11-09 13:17] LABS: Influenza A QL RT-PCR Negative (Negative); Influenza B QL RT-PCR Negative (Negative); RSV RNA, RT-PCR Negative (Negative); SARS-CoV-2 RNA PCR Negative (Negative)
[2023-11-09 13:21] LABS: Troponin I < 0.012 ng/mL (0.000-0.034)
--- NOTE | 2023-11-09 17:05 | PM.CNGS ---
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 She does not need antibiotics at this time. Particularly do not give her laxatives. This can stimulate the colon and cause a perforation which would probably be deadly. I will start Metamucil and mineral oil to make the stool easier to pass. In a couple of days, we can start some soap suds enemas which usually will result in passage of the retained stool. (2) Chronic hyponatremia: Code(s): E87.1 - Hypo-osmolality and hyponatremia Status: Chronic Assessment and Plan: Also present on admission (3) Constipation, chronic: Code(s): K59.09 - Other constipation Status: Chronic Assessment and Plan: Likely to be longstanding and persistent (4) Hemorrhagic stroke: Code(s): I61.9 - Nontraumatic intracerebral hemorrhage, unspecified Status: Chronic Assessment and Plan: September 2021 History of Present Illness Consult details Consult date: 11/09/23 Reason for consult: other (Stercoral colitis) Requesting physician: Olivia Muro MD Narrative: Patient is a 58-year-old woman who came to the emergency room from [facility] today for mental status changes and constipation. She reports that she has been increasingly more difficult to wake up and has felt confused. She also reports she has not had a bowel movement in 4 days. In the emergency room she was noted to have significant hyponatremia. CT scan of the abdomen and pelvis showed a large stool ball in the upper rectum with signs of stercoral colitis of the distal sigmoid and rectum. She also has additional retained stool farther up the sigmoid colon. She lives at [facility] due to a large hemorrhagic stroke she suffered in September of 2021. She had 3 different craniotomies within a week trying to preserve brain function. She was, unfortunately, left with quite a large frontoparietal stroke and dense left hemiplegia. She had a gastrostomy tube for about a year but that has been removed and she has been eating on her own since then. The constipation seems to coincide more with when she started eating on her own. She tells me she has bowel movements each day but often they are small and she has felt pressure in the pelvis and the left lower quadrant of the abdomen. She apparently has p.r.n. medications for diarrhea as well as MiraLax for constipation. She is seen now in consultation regarding her stercoral colitis. There is no record of her having a colonoscopy in our electronic health record. She did have her gastrostomy tube removed by Dr. Ivy in his office August of 2022. She has had no previous abdominal surgery. Review of Systems Review of Systems: All systems reviewed & are unremarkable except as noted in HPI and below (HPI and those items noted below) Constitutional: Constitutional: Denies chills and Denies fever(s) Cardiovascular: Cardiovascular: Denies chest pain, Denies diaphoresis, Denies dyspnea and Denies paroxysmal nocturnal dyspnea Respiratory: Respiratory: Denies chest congestion, Denies cough and Denies dyspnea Integumentary/Breasts: Skin/Breast: Denies lesions and Denies rash PMFSH Past Medical History Medical History (Updated 11/09/23 @ 17:25 by Taiwo Turcios MD) Chronic anemia Chronic hyponatremia Chronic kidney disease, stage 3 Combined systolic and diastolic congestive heart failure Poorly documented in chart. Hemorrhagic stroke September 2021, persistent left hemiparesis, craniotomies were related to this Hypertension Kidney stones Seizure disorder Surgical History Surgical History (Updated 11/09/23 @ 17:24 by Taiwo Turcios MD) History of craniotomy 3 craniotomies within a week in September 2021 History of cystoscopy (12/2004
--- NOTE | 2023-11-09 17:35 | PM.IMHP ---
H&P: HPI History of Present Illness Date/Time: 11/09/23 18:30 Chief Complaint: Altered mental status. Narrative: This is a very pleasant 58-year-old female with history of hemorrhagic stroke with left-sided hemiplegia, seizures, hypertension, GERD, chronic hyponatremia, and chronic kidney disease who presented to the emergency department for evaluation of altered mental status. She is alert and oriented x4, although reports that she still ?feels out of it,? at this time and provides the following history. According to EMS they were called out for a patient complaining of double vision and urinary incontinence. With further questioning the patient reports that she has chronic, intermittent diplopia which is unchanged. Regarding the urination issues, it is not necessarily unusual for her to have episodes of incontinence. She tells me that she just does not feel like herself but cannot further elaborate. This morning not long after she got up she felt ?just like I could not function.? She is not able to provide any further specifics. She has not had a seizure for quite some time to her knowledge but she wonders if perhaps she had a seizure today. Her only other complaint is some pain in her lower abdomen and in the rectum but she goes on to say that she has been suffering from constipation for quite some time. She denies fever, chills, sweats, headache, change in her chronic left hemiplegia, facial droop, difficulties with speaking and swallowing, cold and flu symptoms, chest pain, shortness a breath, vomiting, and dysuria. She has not had any recent change in medications to her knowledge. No falls or head trauma. In the ED: She was afebrile on arrival with stable vital signs. Labs were significant for a hemoglobin of 11.2, sodium 128, carbon dioxide 20, creatinine 0.60, magnesium 1.5, troponin less than 0.012, CRP less than 0.5. Urinalysis was unremarkable. She tested negative for RSV, COVID, and influenza. Head CT did not show any acute findings. CT of the abdomen and pelvis showed constipation likely fecal impaction with a 10.4 benign 0.3 cm ball of stool the rectum and wall thickening surrounding the rectum and sigmoid colon consistent with likely secondary stercoral colitis. Chest x-ray was normal. She was given 2 g magnesium, 1 L LR bolus, and she is being admitted in this setting for further treatment and evaluation. Review of Systems Review of Systems: Twelve systems were reviewed and are negative except for as per HPI. [facility] Past Medical History Medical History Chronic anemia Chronic hyponatremia Chronic kidney disease, stage 3 Combined systolic and diastolic congestive heart failure Poorly documented in chart. Hemorrhagic stroke September 2021, persistent left hemiparesis, craniotomies were related to this Hypertension Kidney stones Seizure disorder Surgical History Surgical History History of craniotomy 3 craniotomies within a week in September 2021 History of cystoscopy (12/2004) History of gastrostomy tube placement Removed 08/04/2022. History of ureter stent (12/2004) Family History Family History Mother Alzheimer's dementia A-fib Father Cerebrovascular accident Hypertension Heart disease Cancer Sibling Cancer Depression Social History Social History Social History: Surrogate medical decision maker: Shyam Figueroa, daughter. Code status: Full code. Smoking status: Never smoker Tobacco type: cigarettes Alcohol intake: never Drinks per week: 2 Substance use: never Substance use type: does not use Last use: 09/24/21 Do You Feel Safe in your Home?: Yes Lack of Transportation: No Lack of Food: Never True Current Housing: I Have Housing Concerned About Future Hous
--- NOTE | 2023-11-09 17:37 | PC.NURSE ---
Incontinent of large amount of urine and large amount of soft stool.
[2023-11-09 17:59] LABS: Lactic Acid Reflex 1.5 mmol/L (0.7-2.0)
--- NOTE | 2023-11-09 19:36 | PC.NURSE ---
Psyllium powder and mineral oil not given during prior shift due to large bowel movement.
[2023-11-09] MEDS: MAGNESIUM SULF 2 GM/WATER 50ML 2 GM/50 ML BAG IVPB (19:47)
--- NOTE | 2023-11-09 22:29 | ADMGEN ---
This patient, Martina Figueroa, was admitted to [facility] Surg Room 331-01. Patient/family oriented to hospital policies and general routines including ID bracelet, bed and alarms, visiting hours, pain management, procedures, bathroom and other care routines, personal items, smoking policy, room service/diet, and visiting hours. Information on how to activate the Rapid Response Team has been discussed. Patient/Family are encouraged to report perceived risks to care and to ask questions if they do not understand what they are told or what they should do.
[2023-11-10 04:41] VITALS: BP 121/59; PULSE 71; RESP 18; TEMP 36.1; O2SAT 9
[2023-11-10 05:37] LABS: Hematocrit 35.3 % (37.0-47.0); Hemoglobin 10.7 g/dL (12.0-15.0); Mean Corpuscular HGB Conc 30.3 g/dl (32-36); Mean Corpuscular Hemoglobin 30.9 pg (26-34); Mean Platelet Volume 8.9 fl (7.4-10.4); Platelet Count Result 235 k/mm3 (150-375); Red Blood Count 3.46 M/mm3 (4.2-5.4); Red Cell Distribution Width 12.7 % (11.5-14.5); White Blood Count 6.9 K/mm3 (4.5-10.0)
[2023-11-10 05:51] LABS: Anion Gap 5 mmol/L (8-16); Blood Urea Nitrogen 7 mg/dL (7-17); Calcium 8.9 mg/dL (8.4-10.2); Carbon Dioxide 24 mmol/L (22-30); Chloride 105 mmol/L (98-107); Estimated CRCL calculation 77 ml/min; Estimated Glomerular Filt Rate > 60; Glucose 77 mg/dL (65-110); Magnesium 1.8 mg/dL (1.6-2.3); Sodium 134 mmol/L (137-145)
[2023-11-10 08:00] VITALS: O2SAT 96
--- NOTE | 2023-11-10 08:58 | P.PNIM_ITS ---
Progress Note: A&P Assessment and Plan (1) Stercoral colitis: Code(s): K52.89 - Other specified noninfective gastroenteritis and colitis Status: Acute Assessment and Plan: * CT scan with a large stool ball in the rectum and colitis * general surgery consult from ED- Dr. Turcios. He recommended Metamucil t.i.d., mineral oil p.o. b.i.d.. No laxatives- potential for perforation. no antibiotics at this time. ordered soapsuds enema for Monday, and KUB for Monday * (2) Confusion: Code(s): R41.0 - Disorientation, unspecified Status: Acute Assessment and Plan: * patient alert and oriented time of assessment, no acute distress, able to make needs known (3) Constipation: Qualifiers: Constipation type: unspecified constipation type Qualified Code(s): K59.00 - Constipation, unspecified Code(s): K59.00 - Constipation, unspecified Status: Deleted Assessment and Plan: * patient expressed constipation x4 days * CT performed in ED noted constipation/fecal impaction- large bowel in ED * small bowel movement today * general surgery consulted from ED- for CT findings of sterocal colitis Dr. Turcios. He recommended Metamucil t.i.d., mineral oil p.o. b.i.d.. No laxatives- potential for perforation. no antibiotics at this time. ordered soapsuds enema for Monday, and KUB for Monday (4) Chronic hyponatremia: Code(s): E87.1 - Hypo-osmolality and hyponatremia Status: Chronic Assessment and Plan: * sodium today 134- improved * patient given diet- patient Is a vegetarian (5) Hypomagnesemia: Code(s): E83.42 - Hypomagnesemia Status: Acute Assessment and Plan: * magnesium today 1.8 (6) Chronic anemia: Code(s): D64.9 - Anemia, unspecified Status: Chronic Assessment and Plan: * chronic anemia stable * hemoglobin 10.7 hematocrit 35.3 (7) Seizure disorder: Code(s): G40.909 - Epilepsy, unspecified, not intractable, without status epilepticus Status: Chronic Assessment and Plan: * possible occult seizure * monitored on telemetry with frequent neurologic checks * Continue lacosamide and levetiracetam * patient denied this occurrence being seizure-like episode- refused any neurological consult for exam * continue to monitor and address accordingly (8) Hypertension: Qualifiers: Hypertension type: primary hypertension Qualified Code(s): I10 - Essent ial (primary) hypertension Code(s): I10 - Essential (primary) hypertension Status: Acute Assessment and Plan: * a.m. blood pressure 121/59 * continue patient's home medications Coreg Plan The patient presented to the emergency department for evaluation of altered mental status as detailed in HPI. Labs, imaging, EKG, and all reports were personally reviewed. She is alert and oriented x4 at the time my evaluation and her exam seems unchanged compared to previous examinations by this author. Nonetheless she still feels ?off.? She has been afebrile in gives no history to suggest underlying infection. Magnesium was low and was replaced and she has no other significant electrolyte abnormalities. I am wondering if perhaps she may have had an occult seizure. She will be monitored on telemetry with frequent n eurologic checks. A further workup can be pursued depending on her course overnight. Continue lacosamide and levetiracetam. Her sodium was a bit lower than what it typically runs but not significantly so. She appears euvolemic thus will hold on further IV fluids. Repeat BMP
--- NOTE | 2023-11-10 08:58 | PM.IMPN ---
Progress Note: A&P Assessment and Plan (1) Stercoral colitis: Code(s): K52.89 - Other specified noninfective gastroenteritis and colitis Status: Acute Assessment and Plan: CT scan with a large stool ball in the rectum and colitis general surgery consult from ED- Dr. Turcios. He recommended Metamucil t.i.d., mineral oil p.o. b.i.d.. No laxatives- potential for perforation. no antibiotics at this time. ordered soapsuds enema for Monday, and KUB for Monday (2) Confusion: Code(s): R41.0 - Disorientation, unspecified Status: Acute Assessment and Plan: patient alert and oriented time of assessment, no acute distress, able to make needs known (3) Constipation: Qualifiers: Constipation type: unspecified constipation type Qualified Code(s): K59.00 - Constipation, unspecified Code(s): K59.00 - Constipation, unspecified Status: Deleted Assessment and Plan: patient expressed constipation x4 days CT performed in ED noted constipation/fecal impaction- large bowel in ED small bowel movement today general surgery consulted from ED- for CT findings of sterocal colitis Dr. Turcios. He recommended Metamucil t.i.d., mineral oil p.o. b.i.d.. No laxatives- potential for perforation. no antibiotics at this time. ordered soapsuds enema for Monday, and KUB for Monday (4) Chronic hyponatremia: Code(s): E87.1 - Hypo-osmolality and hyponatremia Status: Chronic Assessment and Plan: sodium today 134- improved patient given diet- patient Is a vegetarian (5) Hypomagnesemia: Code(s): E83.42 - Hypomagnesemia Status: Acute Assessment and Plan: magnesium today 1.8 (6) Chronic anemia: Code(s): D64.9 - Anemia, unspecified Status: Chronic Assessment and Plan: chronic anemia stable hemoglobin 10.7 hematocrit 35.3 (7) Seizure disorder: Code(s): G40.909 - Epilepsy, unspecified, not intractable, without status epilepticus Status: Chronic Assessment and Plan: possible occult seizure monitored on telemetry with frequent neurologic checks Continue lacosamide and levetiracetam patient denied this occurrence being seizure-like episode- refused any neurological consult for exam continue to monitor and address accordingly (8) Hypertension: Qualifiers: Hypertension type: primary hypertension Qualified Code(s): I10 - Essential (primary) hypertension Code(s): I10 - Essential (primary) hypertension Status: Acute Assessment and Plan: a.m. blood pressure 121/59 continue patient's home medications Coreg Plan The patient presented to the emergency department for evaluation of altered mental status as detailed in HPI. Labs, imaging, EKG, and all reports were personally reviewed. She is alert and oriented x4 at the time my evaluation and her exam seems unchanged compared to previous examinations by this author. Nonetheless she still feels ?off.? She has been afebrile in gives no history to suggest underlying infection. Magnesium was low and was replaced and she has no other significant electrolyte abnormalities. I am wondering if perhaps she may have had an occult seizure. She will be monitored on telemetry with frequent neurologic checks. A further workup can be pursued depending on her course overnight. Continue lacosamide and levetiracetam. Her sodium was a bit lower than what it typically runs but not significantly so. She appears euvolemic thus will hold on further IV fluids. Repeat BMP has been ordered for a.m.. Her chronic anemia stable on review of previous labs. She has evidence of so core colitis on CT scan with a large stool ball in the rectum. She has been started on MiraLax q.8 hours and mineral oil p.o. Her blood pressures were reviewed and they have been stable. Her home medications will be reviewed and resumed as appropriate. Time Spent With Patient
[2023-11-10] MEDS: BACLOFEN 5 MG TABLET PO ×2 (09:08→20:59)
[2023-11-10] MEDS: PSYLLIUM POWDER PACKET 1 PACKET PO ×3 (09:08→20:58)
[2023-11-10] MEDS: ACETAMINOPHEN 325 MG TABLET 650 MG PO ×2 (09:08→16:39)
[2023-11-10] MEDS: ASPIRIN 81 MG CHEWABLE TABLET PO (09:08)
[2023-11-10] MEDS: ALPRAZolam (*CRX) 0.25 MG TABLET PO ×2 (09:08→16:39)
[2023-11-10] MEDS: FOLIC ACID 1 MG TABLET 5 MG PO (09:09)
[2023-11-10] MEDS: LACOSAMIDE (*CRX) 100 MG TABLET PO ×2 (09:09→20:59)
[2023-11-10] MEDS: levETIRAcetam 250 MG TABLET 750 MG PO ×2 (09:09→20:59)
[2023-11-10 09:10] VITALS: PULSE 74
[2023-11-10] MEDS: carvediloL 3.125 MG TABLET PO ×2 (09:10→20:59)
[2023-11-10] MEDS: polyethylene glycoL 3350 17 GM POWD.PACK PO (09:10)
[2023-11-10] MEDS: PREGABALIN (*CRX) 75 MG CAPSULE 150 MG PO ×3 (09:10→16:39)
[2023-11-10] MEDS: PANTOPRAZOLE 40 MG TABLET PO (09:10)
[2023-11-10] MEDS: DULoxetine HCL 30 MG CAPSULE.DR PO (09:16)
[2023-11-10] MEDS: MINERAL OIL 30 ML UDC 15 ML PO ×2 (11:52→18:32)
[2023-11-10 14:00] VITALS: BP 108/50; PULSE 82; RESP 16; TEMP 36.7; O2SAT 95
--- NOTE | 2023-11-10 16:54 | PM.PNGS ---
Progress Note: A&P Assessment and Plan (1) Stercoral colitis: Code(s): K52.89 - Other specified noninfective gastroenteritis and colitis Status: Acute Assessment and Plan: Doubt much change has occurred in fecal impaction at yet. Continue Metamucil t.i.d. and mineral oil b.i.d.. Give soapsuds enema on Monday and recheck plain film abdomen on Monday. (2) Fecal impaction in rectum: Code(s): K56.41 - Fecal impaction Status: Acute Assessment and Plan: See above. Abdomen raw stock drier tender (3) Hemorrhagic stroke: Code(s): I61.9 - Nontraumatic intracerebral hemorrhage, unspecified Status: Chronic Assessment and Plan: Will ask physical therapy to see (4) Acute hyponatremia: Code(s): E87.1 - Hypo-osmolality and hyponatremia Status: Acute Assessment and Plan: Improved today Subjective Subjective Date/Time Seen: 11/10/23 16:54 Patient reports: feels better, still having pain (lower abdomen), tolerating a regular diet (she is vegan and eats small amounts but eating at her baseline; better than last 2-3 days.), bowel movement (Large while still ED on , small one today) and afebrile Review of Systems Review of Systems: All systems reviewed & are unremarkable except as noted in HPI and below (HPI) Exam Const: General: cooperative, comfortable, alert, awake and thin Orientation/consciousness: patient oriented x3 and No confusion GI: Inspection: normal to inspection, scaphoid and no visible herniation GI Palp: Yes Soft to palpation, Yes Tenderness to palpation present (GI) (Umbilicus on down), Yes Guarding due to palpation present (GI), No Hernia present and No Palpable mass present Auscultation: normal bowel sounds Objective Data Vital Signs Vital Signs: Vital Signs - 24 hr 11/09/23 17:00 11/09/23 17:01 11/09/23 17:15 Temperature Pulse Rate 81 84 85 Respiratory Rate 15 13 16 Blood Pressure 120/67 126/91 H Pulse Oximetry Oxygen Delivery 11/09/23 17:16 11/09/23 17:30 11/09/23 17:45 Temperature Pulse Rate 76 85 77 Respiratory Rate 13 26 H 17 Blood Pressure Pulse Oximetry Oxygen Delivery 11/09/23 18:00 11/09/23 18:33 11/09/23 18:34 Temperature Pulse Rate 72 76 72 Respiratory Rate 14 12 14 Blood Pressure 132/66 Pulse Oximetry Oxygen Delivery 11/09/23 18:45 11/09/23 18:46 11/09/23 19:00 Temperature Pulse Rate 72 71 72 Respiratory Rate 13 13 14 Blood Pressure 139/63 129/66 Pulse Oximetry 99 Oxygen Delivery 11/09/23 19:07 11/09/23 20:57 11/09/23 21:00 Temperature Pulse Rate 70 73 72 Respiratory Rate 13 16 15 Blood Pressure Pulse Oximetry 99 99 Oxygen Delivery 11/09/23 21:15 11/09/23 21:30 11/09/23 22:00 Temperature 37.6 C Pulse Rate 75 71 78 Respiratory Rate 14 14 18 Blood Pressure 137/67 Pulse Oximetry 98 Oxygen Delivery 11/09/23 22:33 11/10/23 04:41 11/10/23 08:00 Temperature 36.1 C L Pulse Rate 71 Respiratory Rate 18 Blood Pressure 121/59 L Pulse Oximetry 9 L 96 Oxygen Delivery Room Air Room Air 11/10/23 09:10 11/10/23 14:00 Temperature 36.7 C Pulse Rate 74 82 Respiratory Rate 16 Blood Pressure 108/50 L Pulse Oximetry 95 Oxygen Delivery Intake/Output Intake/Output: Intake & Output 11/07/23 11/08/23 11/09/23 11/10/23 23:59 23:59 23:59 23:59 Intake Total 1050 240 Balance 1050 240 Meds/Results Medications: Active Medications Generic Name Dose Route Start Last Admin Trade Name Kiera PRN Reason Stop Dose Admin Acetaminophen 650 mg 11/09/23 23:43 Acetaminophen 325 Mg Tablet PO Q6H PRN Mild Pain (1-3) or Fever Acetaminophen 650 mg 11/10/23 09:00 11/10/23 16:39 Acetaminophen 325 Mg Tablet PO 650 mg BID SHANTI Administration Alprazolam 0.25 mg 11/10/23 09:00 11/10/23 16:39 Alprazolam (*Crx) 0.25 Mg Tablet PO 0.25 mg BID SHANTI Administration Aspirin 81 mg
[2023-11-10 20:59] VITALS: PULSE 104
[2023-11-10] MEDS: MELATONIN 3 MG TABLET PO (20:59)
[2023-11-10] MEDS: ATORVASTATIN 40 MG TABLET PO (20:59)
[2023-11-10 21:18] VITALS: BP 105/60; PULSE 104; RESP 18; TEMP 36.6; O2SAT 96
[2023-11-11] MEDS: PSYLLIUM POWDER PACKET 1 PACKET PO ×3 (05:51→21:54)
[2023-11-11 06:00] VITALS: BP 108/55; PULSE 75; RESP 16; TEMP 37.1; O2SAT 94
[2023-11-11 06:20] LABS: Hematocrit 27.1 % (37.0-47.0); Hemoglobin 8.8 g/dL (12.0-15.0); Mean Corpuscular HGB Conc 32.5 g/dl (32-36); Mean Corpuscular Hemoglobin 30.8 pg (26-34); Mean Corpuscular Volume 94.8 fl (80-100); Mean Platelet Volume 8.7 fl (7.4-10.4); Platelet Count Result 179 k/mm3 (150-375); Red Blood Count 2.86 M/mm3 (4.2-5.4); Red Cell Distribution Width 12.9 % (11.5-14.5); White Blood Count 7.8 K/mm3 (4.5-10.0)
[2023-11-11 06:35] LABS: Alanine Aminotransferase 15 U/L (6-35); Albumin Level 3.1 g/dL (3.5-5.1); Alkaline Phosphatase 55 U/L (38-126); Anion Gap 7 mmol/L (8-16); Aspartate Amino Transferase 24 U/L (14-36); Bilirubin,Total 0.6 mg/dL (0.2-1.3); Blood Urea Nitrogen 7 mg/dL (7-17); Calcium 8.5 mg/dL (8.4-10.2); Carbon Dioxide 23 mmol/L (22-30); Chloride 101 mmol/L (98-107); Estimated CRCL calculation 80 ml/min; Estimated Glomerular Filt Rate > 60; Glucose 108 mg/dL (65-110); Magnesium 1.3 mg/dL (1.6-2.3); Potassium 3.6 mmol/L (3.4-5.0); Sodium 131 mmol/L (137-145)
[2023-11-11] MEDS: levETIRAcetam 250 MG TABLET 750 MG PO ×2 (08:26→21:54)
[2023-11-11] MEDS: PREGABALIN (*CRX) 75 MG CAPSULE 150 MG PO ×3 (08:26→17:03)
[2023-11-11] MEDS: LACOSAMIDE (*CRX) 100 MG TABLET PO ×2 (08:26→21:56)
[2023-11-11] MEDS: DULoxetine HCL 30 MG CAPSULE.DR PO (08:26)
[2023-11-11] MEDS: ASPIRIN 81 MG CHEWABLE TABLET PO (08:26)
[2023-11-11] MEDS: FOLIC ACID 1 MG TABLET 5 MG PO (08:26)
[2023-11-11] MEDS: ALPRAZolam (*CRX) 0.25 MG TABLET PO ×2 (08:26→17:03)
[2023-11-11] MEDS: PANTOPRAZOLE 40 MG TABLET PO (08:26)
[2023-11-11] MEDS: BACLOFEN 5 MG TABLET PO ×2 (08:26→21:54)
[2023-11-11 08:27] VITALS: PULSE 70
[2023-11-11] MEDS: carvediloL 3.125 MG TABLET PO ×2 (08:27→21:55)
[2023-11-11] MEDS: MINERAL OIL 30 ML UDC 15 ML PO ×2 (08:28→17:03)
[2023-11-11] MEDS: polyethylene glycoL 3350 17 GM POWD.PACK PO (08:28)
[2023-11-11] MEDS: ACETAMINOPHEN 325 MG TABLET 650 MG PO ×2 (08:28→17:03)
--- NOTE | 2023-11-11 08:49 | P.PNIM_ITS ---
Progress Note: A&P Assessment and Plan (1) Stercoral colitis: Code(s): K52.89 - Other specified noninfective gastroenteritis and colitis Status: Acute Assessment and Plan: * CT scan with a large stool ball in the rectum and colitis * general surgery consult from ED- Dr. Turcios. He recommended Metamucil t.i.d., mineral oil p.o. b.i.d.. No laxatives- potential for perforation. no antibiotics at this time. ordered soapsuds enema for Monday, and KUB for Friday 11/10 * continue General surgery plan discussed with Dr. Barnard: continue Metamucil and mineral oil today, Monday administer soapsuds enema, and rescanned on Monday. (2) Confusion: Code(s): R41.0 - Disorientation, unspecified Status: Acute Assessment and Plan: * patient alert and oriented time of assessment, no acute distress, able to make needs known 11/10 * patient is alert oriented, answers questions appropriately, speech is clear but slow (3) Constipation: Qualifiers: Constipation type: unspecified constipation type Qualified Code(s): K59.00 - Constipation, unspecified Code(s): K59.00 - Constipation, unspecified Status: Deleted Assessment and Plan: * patient expressed constipation x4 days * CT performed in ED noted constipation/fecal impaction- large bowel in ED * small bowel movement today * general surgery consulted from ED- for CT findings of sterocal colitis Dr. Turcios. He recommended Metamucil t.i.d., mineral oil p.o. b.i.d.. No laxatives- potential for perforation. no antibiotics at this time. ordered soapsuds enema for Monday, and KUB for Friday 11/10 * she expressed no bowel movement today, but had adequate bowel movements yesterday and a prior * due to decreasing hemoglobin occult stool was ordered, nursing and patient made aware of the need to collect (4) Chronic hyponatremia: Code(s): E87.1 - Hypo-osmolality and hyponatremia Status: Chronic Assessment and Plan: * sodium today 134- improved * patient given diet- patient Is a vegetarian 11/10 * sodium 131 today (5) Hypomagnesemia: Code(s): E83.42 - Hypomagnesemia Status: Acute Assessment and Plan: * magnesium today 1.8 3/9 * magnesium 1.3 today- replaced (6) Chronic anemia: Code(s): D64.9 - Anemia, unspecified Status: Chronic Assessment and Plan: * chronic anemia stable * hemoglobin 10.7 hematocrit 35.3 11/10 * hemoglobin 8.8 hematocrit 27.9 * stool sample for occult stool ordered (7) Seizure disorder: Code(s): G40.909 - Epilepsy, unspecified, not intractable, without status epilepticus Status: Chronic Assessment and Plan: * possible occult seizure * monitored on telemetry with frequent neurologic checks * Continue lacosamide and levetiracetam * patient denied this occurrence being seizure-like episode- refused any neurological consult for exam * continue to monitor and address accordingly 11/10 * no seizure activity noted within this admission at this time * continue patient's anti-seizure medication (8) Hypertension: Qualifiers: Hypertension type: primary hypertension Qualified Code(s): I10 - Essential (primary) hypertension Code(s): I10 - Essential (primary) hypertension Status: Acute Assessment and Plan: * a.m. blood pressure 121/59 * continue patient's home medications Coreg 11/10 * a.m. blood pressure 108/55 Plan The patient presented to the emergency department for evaluation of al
--- NOTE | 2023-11-11 08:49 | PM.IMPN ---
Progress Note: A&P Assessment and Plan (1) Stercoral colitis: Code(s): K52.89 - Other specified noninfective gastroenteritis and colitis Status: Acute Assessment and Plan: CT scan with a large stool ball in the rectum and colitis general surgery consult from ED- Dr. Turcios. He recommended Metamucil t.i.d., mineral oil p.o. b.i.d.. No laxatives- potential for perforation. no antibiotics at this time. ordered soapsuds enema for Monday, and KUB for Friday 11/10 continue General surgery plan discussed with Dr. Barnard: continue Metamucil and mineral oil today, Monday administer soapsuds enema, and rescanned on Monday. (2) Confusion: Code(s): R41.0 - Disorientation, unspecified Status: Acute Assessment and Plan: patient alert and oriented time of assessment, no acute distress, able to make needs known 11/10 patient is alert oriented, answers questions appropriately, speech is clear but slow (3) Constipation: Qualifiers: Constipation type: unspecified constipation type Qualified Code(s): K59.00 - Constipation, unspecified Code(s): K59.00 - Constipation, unspecified Status: Deleted Assessment and Plan: patient expressed constipation x4 days CT performed in ED noted constipation/fecal impaction- large bowel in ED small bowel movement today general surgery consulted from ED- for CT findings of sterocal colitis Dr. Turcios. He recommended Metamucil t.i.d., mineral oil p.o. b.i.d.. No laxatives- potential for perforation. no antibiotics at this time. ordered soapsuds enema for Monday, and KUB for Friday 11/10 she expressed no bowel movement today, but had adequate bowel movements yesterday and a prior due to decreasing hemoglobin occult stool was ordered, nursing and patient made aware of the need to collect (4) Chronic hyponatremia: Code(s): E87.1 - Hypo-osmolality and hyponatremia Status: Chronic Assessment and Plan: sodium today 134- improved patient given diet- patient Is a vegetarian 11/10 sodium 131 today (5) Hypomagnesemia: Code(s): E83.42 - Hypomagnesemia Status: Acute Assessment and Plan: magnesium today 1.8 11/10 magnesium 1.3 today- replaced (6) Chronic anemia: Code(s): D64.9 - Anemia, unspecified Status: Chronic Assessment and Plan: chronic anemia stable hemoglobin 10.7 hematocrit 35.3 11/10 hemoglobin 8.8 hematocrit 27.9 stool sample for occult stool ordered (7) Seizure disorder: Code(s): G40.909 - Epilepsy, unspecified, not intractable, without status epilepticus Status: Chronic Assessment and Plan: possible occult seizure monitored on telemetry with frequent neurologic checks Continue lacosamide and levetiracetam patient denied this occurrence being seizure-like episode- refused any neurological consult for exam continue to monitor and address accordingly 11/10 no seizure activity noted within this admission at this time continue patient's anti-seizure medication (8) Hypertension: Qualifiers: Hypertension type: primary hypertension Qualified Code(s): I10 - Essential (primary) hypertension Code(s): I10 - Essential (primary) hypertension Status: Acute Assessment and Plan: a.m. blood pressure 121/59 continue patient's home medications Coreg 11/10 a.m. blood pressure 108/55 Plan The patient presented to the emergency department for evaluation of altered mental status as detailed in HPI. Labs, imaging, EKG, and all reports were personally reviewed. She is alert and oriented x4 at the time my evaluation and her exam seems unchanged compared to previous examinations by this author. Nonetheless she still feels ?off.? She has been afebrile in gives no history to suggest underlying infection. Magnesium was low and was replaced and she has no other significant electrolyte abnormalities. I am wond
[2023-11-11 14:00] VITALS: BP 104/55; PULSE 67; RESP 16; TEMP 37.2; O2SAT 95
[2023-11-11 17:15] LABS: Immunochemical Fecal Occult Bl Positive (N)
[2023-11-11 17:16] LABS: IFOB Positive Control Positive
[2023-11-11 20:00] VITALS: PULSE 60; RESP 18; O2SAT 98
[2023-11-11] MEDS: MELATONIN 3 MG TABLET PO (21:54)
[2023-11-11] MEDS: MAGNESIUM SULF 2 GM/WATER 50ML 2 GM/50 ML BAG IVPB (21:54)
[2023-11-11] MEDS: ATORVASTATIN 40 MG TABLET PO (21:54)
[2023-11-11 21:55] VITALS: PULSE 60
[2023-11-11 22:00] VITALS: BP 142/75; PULSE 60; RESP 18; TEMP 36.3; O2SAT 98
--- NOTE | 2023-11-12 03:06 | PC.NURSE ---
Daylight Savings Time For Daylight Savings Time Ending in the Fall - Clocks are moved back. For Daylight Savings Time Beginning in the Spring - Clocks are moved ahead. For [facility], the time of change occurs at 0200 hrs. Time is taken from the kitchen food server. This entry on the patient's chart recognizes the change in time reflected during documentation. Example: 2 entries for vital signs may be charted for 0200 hrs.
[2023-11-12 05:57] VITALS: BP 112/52; PULSE 61; RESP 18; TEMP 36.9; O2SAT 97
[2023-11-12] MEDS: PSYLLIUM POWDER PACKET 1 PACKET PO ×3 (05:58→21:30)
[2023-11-12 06:40] LABS: Hematocrit 29.5 % (37.0-47.0); Hemoglobin 9.3 g/dL (12.0-15.0); Mean Corpuscular HGB Conc 31.5 g/dl (32-36); Mean Corpuscular Hemoglobin 30.2 pg (26-34); Mean Corpuscular Volume 95.8 fl (80-100); Platelet Count Result 222 k/mm3 (150-375); Red Blood Count 3.08 M/mm3 (4.2-5.4); Red Cell Distribution Width 12.8 % (11.5-14.5); White Blood Count 7.7 K/mm3 (4.5-10.0)
[2023-11-12 06:51] LABS: Alanine Aminotransferase 15 U/L (6-35); Albumin Level 3.2 g/dL (3.5-5.1); Alkaline Phosphatase 61 U/L (38-126); Anion Gap 5 mmol/L (8-16); Aspartate Amino Transferase 27 U/L (14-36); Bilirubin,Total 0.3 mg/dL (0.2-1.3); Blood Urea Nitrogen 4 mg/dL (7-17); Calcium 8.8 mg/dL (8.4-10.2); Carbon Dioxide 25 mmol/L (22-30); Chloride 105 mmol/L (98-107); Estimated CRCL calculation 80 ml/min; Estimated Glomerular Filt Rate > 60; Glucose 94 mg/dL (65-110); Magnesium 1.8 mg/dL (1.6-2.3); Sodium 135 mmol/L (137-145)
[2023-11-12] MEDS: MINERAL OIL 30 ML UDC 15 ML PO ×2 (08:36→16:48)
[2023-11-12] MEDS: FOLIC ACID 1 MG TABLET 5 MG PO (08:42)
[2023-11-12] MEDS: ASPIRIN 81 MG CHEWABLE TABLET PO (08:42)
[2023-11-12] MEDS: ACETAMINOPHEN 325 MG TABLET 650 MG PO ×2 (08:42→16:49)
[2023-11-12] MEDS: BACLOFEN 5 MG TABLET PO ×2 (08:42→21:30)
[2023-11-12] MEDS: PANTOPRAZOLE 40 MG TABLET PO (08:42)
[2023-11-12] MEDS: PREGABALIN (*CRX) 75 MG CAPSULE 150 MG PO ×3 (08:42→16:49)
[2023-11-12] MEDS: ALPRAZolam (*CRX) 0.25 MG TABLET PO ×2 (08:42→16:49)
[2023-11-12] MEDS: LACOSAMIDE (*CRX) 100 MG TABLET PO ×2 (08:42→21:30)
[2023-11-12 08:43] VITALS: PULSE 72
[2023-11-12] MEDS: carvediloL 3.125 MG TABLET PO ×2 (08:43→21:30)
[2023-11-12] MEDS: DULoxetine HCL 30 MG CAPSULE.DR PO (08:43)
[2023-11-12] MEDS: polyethylene glycoL 3350 17 GM POWD.PACK PO (08:43)
--- NOTE | 2023-11-12 09:09 | P.PNIM_ITS ---
Progress Note: A&P Assessment and Plan (1) Stercoral colitis: Code(s): K52.89 - Other specified noninfective gastroenteritis and colitis Status: Acute Assessment and Plan: * CT scan with a large stool ball in the rectum and colitis * general surgery consult from ED- Dr. Turcios. He recommended Metamucil t.i.d., mineral oil p.o. b.i.d.. No laxatives- potential for perforation. no antibiotics at this time. ordered soapsuds enema for Monday, and KUB for Friday 11/10 * continue General surgery plan discussed with Dr. Barnard: continue Metamucil and mineral oil today, Monday administer soapsuds enema, and rescanned on Monday. 11/11 * patient is without abdominal pain. bowel sounds positive * general surgery plan:Continue Metamucil t.i.d. and mineral oil b.i.d.. Give soapsuds enema on Monday and recheck plain film abdomen on Monday. (2) Confusion: Code(s): R41.0 - Disorientation, unspecified Status: Acute Assessment and Plan: * patient alert and oriented time of assessment, no acute distress, able to make needs known 11/10 * patient is alert oriented, answers questions appropriately, speech is clear but slow 11/11 * patient is alert oriented, able to answer questions appropriately * disorientation resolved (3) Constipation: Qualifiers: Constipation type: unspecified constipation type Qualified Code(s): K59.00 - Constipation, unspecified Code(s): K59.00 - Constipation, unspecified Status: Deleted Assessment and Plan: * patient expressed constipation x4 days * CT performed in ED noted constipation/fecal impaction- large bowel in ED * small bowel movement today * general surgery consulted from ED- for CT findings of sterocal colitis Dr. Turcios. He recommended Metamucil t.i.d., mineral oil p.o. b.i.d.. No laxatives- potential for perforation. no antibiotics at this time. ordered soapsuds enema for Monday, and KUB for Friday 11/10 * she expressed no bowel movement today, but had adequate bowel movements yesterday and a prior * due to decreasing hemoglobin occult stool was ordered, nursing and patient made aware of the need to collect 11/11 * patient has documented 3 bowel movements yesterday * patient had positive occult stool sample, per nursing and patient no maco blood observed. hemoglobin 9.3- improved, suggest not likely actively, suggestive of constipation trauma * will perform anemia panel * she does not feel constipated this time, has no abdominal pain * general surgery plan continues as Continue Metamucil t.i.d. and mineral oil b.i.d.. Give soapsuds enema on Monday and recheck plain film abdomen on Monday. (4) Chronic hyponatremia: Code(s): E87.1 - Hypo-osmolality and hyponatremia Status: Chronic Assessment and Plan: * sodium today 134- improved * patient given diet- patient Is a vegetarian 11/10 * sodium 131 today 11/11 * sodium 135 today (5) Hypomagnesemia: Code(s): E83.42 - Hypomagnesemia Status: Acute Assessment and Plan: * magnesium today 1.8 11/10 * magnesium 1.3 today- replaced 11/11 * magnesium 1.8 today (6) Chronic anemia: Code(s): D64.9 - Anemia, unspecified Status: Chronic Assessment and Plan: * chronic anemia stable * hemoglobin 10.7 hematocrit 35.3 11/10 * hemoglobin 8.8 hematocrit 27.9 * stool sample for occult stool ordered 11/11 * hemoglobin 9.3, hematocrit 29.5 * positive occult stool sample, per nursing and patient no maco blood observed. hemoglob
--- NOTE | 2023-11-12 09:09 | PM.IMPN ---
Progress Note: A&P Assessment and Plan (1) Stercoral colitis: Code(s): K52.89 - Other specified noninfective gastroenteritis and colitis Status: Acute Assessment and Plan: CT scan with a large stool ball in the rectum and colitis general surgery consult from ED- Dr. Turcios. He recommended Metamucil t.i.d., mineral oil p.o. b.i.d.. No laxatives- potential for perforation. no antibiotics at this time. ordered soapsuds enema for Monday, and KUB for Friday 11/10 continue General surgery plan discussed with Dr. Barnard: continue Metamucil and mineral oil today, Monday administer soapsuds enema, and rescanned on Monday. 11/11 patient is without abdominal pain. bowel sounds positive general surgery plan:Continue Metamucil t.i.d. and mineral oil b.i.d.. Give soapsuds enema on Monday and recheck plain film abdomen on Monday. (2) Confusion: Code(s): R41.0 - Disorientation, unspecified Status: Acute Assessment and Plan: patient alert and oriented time of assessment, no acute distress, able to make needs known 11/10 patient is alert oriented, answers questions appropriately, speech is clear but slow 11/11 patient is alert oriented, able to answer questions appropriately disorientation resolved (3) Constipation: Qualifiers: Constipation type: unspecified constipation type Qualified Code(s): K59.00 - Constipation, unspecified Code(s): K59.00 - Constipation, unspecified Status: Deleted Assessment and Plan: patient expressed constipation x4 days CT performed in ED noted constipation/fecal impaction- large bowel in ED small bowel movement today general surgery consulted from ED- for CT findings of sterocal colitis Dr. Turcios. He recommended Metamucil t.i.d., mineral oil p.o. b.i.d.. No laxatives- potential for perforation. no antibiotics at this time. ordered soapsuds enema for Monday, and KUB for Friday 11/10 she expressed no bowel movement today, but had adequate bowel movements yesterday and a prior due to decreasing hemoglobin occult stool was ordered, nursing and patient made aware of the need to collect 11/11 patient has documented 3 bowel movements yesterday patient had positive occult stool sample, per nursing and patient no maco blood observed. hemoglobin 9.3- improved, suggest not likely actively, suggestive of constipation trauma will perform anemia panel she does not feel constipated this time, has no abdominal pain general surgery plan continues as Continue Metamucil t.i.d. and mineral oil b.i.d.. Give soapsuds enema on Monday and recheck plain film abdomen on Monday. (4) Chronic hyponatremia: Code(s): E87.1 - Hypo-osmolality and hyponatremia Status: Chronic Assessment and Plan: sodium today 134- improved patient given diet- patient Is a vegetarian 11/10 sodium 131 today 11/11 sodium 135 today (5) Hypomagnesemia: Code(s): E83.42 - Hypomagnesemia Status: Acute Assessment and Plan: magnesium today 1.8 11/10 magnesium 1.3 today- replaced 11/11 magnesium 1.8 today (6) Chronic anemia: Code(s): D64.9 - Anemia, unspecified Status: Chronic Assessment and Plan: chronic anemia stable hemoglobin 10.7 hematocrit 35.3 11/10 hemoglobin 8.8 hematocrit 27.9 stool sample for occult stool ordered 11/11 hemoglobin 9.3, hematocrit 29.5 positive occult stool sample, per nursing and patient no maco blood observed. hemoglobin 9.3- improved, suggest not likely actively, suggestive of constipation trauma will perform anemia panel labs, including ferritin, haptoglobin, iron TIBC, lactate dehydrogenase, vitamin B12 and folic general surgery made aware per nursing (7) Seizure disorder: Code(s): G40.909 - Epilepsy, unspecified, not intractable, without status epilepticus Status: Chronic Assessment and Plan: possible occult seizure mon
[2023-11-12] MEDS: levETIRAcetam 250 MG TABLET 750 MG PO ×2 (10:28→21:30)
[2023-11-12 14:47] VITALS: BP 99/55; PULSE 65; RESP 20; TEMP 36.6; O2SAT 97
--- NOTE | 2023-11-12 15:19 | PC.NURSE ---
This RN spoke with Dr. Miguelangel Barnard regarding pt's positive occult stool and recent H&H drop. Per Dr. Barnard, he would still like for pt to receive ordered soap suds enema.
[2023-11-12 18:05] LABS: Iron 25 ug/dL (37-170)
[2023-11-12 18:06] LABS: Lactate Dehydrogenase 145 U/L (120-246)
[2023-11-12 18:15] LABS: Percent Iron Saturation 9 % (20-50)
[2023-11-12 19:15] LABS: Folic Acid > 20.0 ng/mL (2.76->20)
[2023-11-12 20:00] VITALS: O2SAT 96
[2023-11-12] MEDS: ATORVASTATIN 40 MG TABLET PO (21:30)
[2023-11-12] MEDS: MELATONIN 3 MG TABLET PO (21:30)
[2023-11-12 21:35] VITALS: BP 133/76; PULSE 58; RESP 20; TEMP 36.3; O2SAT 96
[2023-11-13 04:35] VITALS: BP 122/68; PULSE 56; RESP 20; TEMP 36.3; O2SAT 95
[2023-11-13] MEDS: PSYLLIUM POWDER PACKET 1 PACKET PO ×3 (05:52→21:11)
[2023-11-13 06:15] LABS: Hemoglobin 9.7 g/dL (12.0-15.0); Mean Corpuscular HGB Conc 32.3 g/dl (32-36); Mean Corpuscular Hemoglobin 30.6 pg (26-34); Mean Corpuscular Volume 94.6 fl (80-100); Mean Platelet Volume 9.1 fl (7.4-10.4); Platelet Count Result 254 k/mm3 (150-375); Red Blood Count 3.17 M/mm3 (4.2-5.4); Red Cell Distribution Width 12.4 % (11.5-14.5); White Blood Count 8.2 K/mm3 (4.5-10.0)
[2023-11-13 06:29] LABS: Alanine Aminotransferase 17 U/L (6-35); Albumin Level 3.4 g/dL (3.5-5.1); Alkaline Phosphatase 66 U/L (38-126); Anion Gap 3 mmol/L (8-16); Aspartate Amino Transferase 28 U/L (14-36); Bilirubin,Total 0.3 mg/dL (0.2-1.3); Blood Urea Nitrogen 5 mg/dL (7-17); Calcium 9.2 mg/dL (8.4-10.2); Carbon Dioxide 26 mmol/L (22-30); Chloride 103 mmol/L (98-107); Estimated CRCL calculation 80 ml/min; Estimated Glomerular Filt Rate > 60; Glucose 84 mg/dL (65-110); Potassium 4.1 mmol/L (3.4-5.0); Sodium 132 mmol/L (137-145)
[2023-11-13 08:00] VITALS: PULSE 56; RESP 20; O2SAT 98
[2023-11-13 08:12] VITALS: O2SAT 98
--- NOTE | 2023-11-13 08:43 | PM.IMPN ---
Progress Note: A&P Assessment and Plan (1) Fecal impaction: Code(s): K56.41 - Fecal impaction Status: Acute Assessment and Plan: KUB obtained this morning reveals that the fecal impaction has not resolved. Patient seen by general surgery and a digital rectal exam was performed, removing a portion of the impaction. Per patient she has had several liquid bowel movements. She is vegan and maintaining her diet well. She denies nausea and vomiting. She denies abdominal pain, but reports abdominal pressure on her left side. Per RN patient handled enema well and had a small formed stool afterward. 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 Per patient she remains fairly mobile with a hemiplegic cane. Continue home medications. Aspirin atorvastatin carvedilol Pregabalin (3) Seizure: Code(s): R56.9 - Unspecified convulsions Status: Acute Assessment and Plan: Past medical history of seizures. Patient presented to the ED for altered mental status, concern for occult seizure given patients history. She has since returned to her baseline. Continue Keppra 750 mg Q12 Neuro checks (4) Hyponatremia: Code(s): E87.1 - Hypo-osmolality and hyponatremia Status: Acute Assessment and Plan: Chronic hyponatremia. Patient remains at baseline. Continue to monitor labs (5) Hypertension: Qualifiers: Hypertension type: primary hypertension Qualified Code(s): I10 - Essential (primary) hypertension Code(s): I10 - Essential (primary) hypertension Status: Acute Assessment and Plan: Blood pressures remain stable. Well controlled on home medications. Continue Carvedilol 3.125mg Q12 hours Time Spent With Patient Time with patient: 25 - 35 minutes Subjective Date/time seen: 11/13/23 08:43 Interval history: Pleasant 58 year old female with past history of anemia, hyponatremia, hemorrhagic stroke, with resultant left hemiplegia, hypertension, and seizure disorder. She states that she has had bowel movements, however they have been purely liquid. She is is maintaining her diet well and denies nausea and vomiting. She denies a stomach pain but does feel pressure on her left side. A KUB was obtained and still notes a fecal impaction. She was seen by general surgery today who performed a digital rectal exam and was able to feel the lower aspect of the impaction and remove some stool. Per RN the patient underwent an enema and was able to have a small formed bowel movement afterward. Review of Systems Review of Systems: All systems reviewed & are unremarkable except as noted in HPI and below Exam Narrative: AF HR56 RR20 SpO2 98% BP 122/68 General: Female in no acute respiratory distress who is nontoxic appearing, lying semi recumbent in bed. HEENT: Normocephalic. Atraumatic. Pupils equal round reactive to light. Extraocular movement intact. Sclera clear and anicteric.No facial asymmetry. Chest: Lungs are clear to auscultation bilaterlly. No wheezes or crackles. CV: Heart was regular rate and rhythm. S1-S2. No murmurs, gallops, or rubs. Abd: Abdomen was soft. Mild tenderness with palpation. Nondistended. Positive bowel sounds. No organomegaly or masses. Ext: No clubbing, cyanosis, or edema. 2+ DP pulses bilaterally. Neuro: Patient is alert and oriented x4. Hemiplegic on left side Speech is clear. Psych: Normal mood and affect. Patient is pleasant and cooperative. Skin: Warm and dry. No rashes noted. Objective Data Vital Signs Vital Signs: Vital Signs - 24 hr 11/12/23 09:26 11/12/23 14:47 11/12/23 21:35 Temperature 97.9 F 97.4 F L Pulse Rate 65 58 L Respiratory Rate 20 2
[2023-11-13] MEDS: ACETAMINOPHEN 325 MG TABLET 650 MG PO ×2 (09:36→17:14)
[2023-11-13] MEDS: polyethylene glycoL 3350 17 GM POWD.PACK PO (09:36)
[2023-11-13] MEDS: FOLIC ACID 1 MG TABLET 5 MG PO (09:36)
[2023-11-13] MEDS: levETIRAcetam 250 MG TABLET 750 MG PO ×2 (09:36→21:10)
[2023-11-13] MEDS: BACLOFEN 5 MG TABLET PO ×2 (09:36→21:10)
[2023-11-13] MEDS: DULoxetine HCL 30 MG CAPSULE.DR PO (09:36)
[2023-11-13] MEDS: LACOSAMIDE (*CRX) 100 MG TABLET PO ×2 (09:36→21:10)
[2023-11-13] MEDS: carvediloL 3.125 MG TABLET PO ×2 (09:36→21:10)
[2023-11-13] MEDS: BISACODYL 5 MG TABLET EC 10 MG PO (09:36)
[2023-11-13] MEDS: ASPIRIN 81 MG CHEWABLE TABLET PO (09:37)
[2023-11-13] MEDS: ALPRAZolam (*CRX) 0.25 MG TABLET PO ×2 (09:37→17:14)
[2023-11-13] MEDS: PANTOPRAZOLE 40 MG TABLET PO (09:37)
[2023-11-13] MEDS: PREGABALIN (*CRX) 75 MG CAPSULE 150 MG PO ×3 (09:37→17:14)
[2023-11-13] MEDS: MINERAL OIL 30 ML UDC 15 ML PO ×2 (09:46→17:26)
--- NOTE | 2023-11-13 14:13 | PM.PNGS ---
Progress Note: A&P Assessment and Plan (1) Fecal impaction in rectum: Code(s): K56.41 - Fecal impaction Status: Chronic Assessment and Plan: Persists by plain films this morning. Patient has had bowel movements but the fecal impaction has not resolved. I was able to feel the lower aspect of the impaction with digital rectal exam and broke up as much of this as I could. She will continue on her fiber supplements mineral oil, Senokot and MiraLax. Will also try soapsuds enema again today. Hopefully the broken up stool material will pass with the enema. Continue present treatment. (2) Stercoral colitis: Code(s): K52.89 - Other specified noninfective gastroenteritis and colitis Status: Acute Assessment and Plan: Will resolve when fecal impaction has resolved. (3) Hemorrhagic stroke: Code(s): I61.9 - Nontraumatic intracerebral hemorrhage, unspecified Status: Chronic Subjective Subjective Date/Time Seen: 11/13/23 14:13 Patient reports: no new complaints, pain is less, tolerating a regular diet, bowel movement (Has had several bowel movements, enema yesterday only returned clear fluid, very little fecal material) and afebrile Review of Systems Review of Systems: All systems reviewed & are unremarkable except as noted in HPI and below (HPI) Exam Const: General: cooperative, comfortable, alert, awake and thin Orientation/consciousness: patient oriented x3 and No confusion GI: Inspection: normal to inspection, non-distended, scaphoid and no visible herniation GI Palp: Yes Soft to palpation, Yes Tenderness to palpation present (GI) (Both lower quadrants), No Guarding due to palpation present (GI), No Hernia present, No Palpable mass present and No Rebound tenderness present Rectal Exam: fecal impaction (Barely palpable on digital exam, I broke up as much as I could) Other: Most of fecal impaction is not within the reach of digital rectal exam. I broke up much of the lower aspect with rectal exam this morning. Hopefully will have better results with enema. Skin: Lesions: no lesions Rashes: no rashes Neuro: Motor exam (neuro): Other motor observations present (Left hemiparesis) Objective Data Vital Signs Vital Signs: Vital Signs - 24 hr 11/12/23 14:47 11/12/23 21:35 11/12/23 20:00 Temperature 36.6 C 36.3 C L Pulse Rate 65 58 L Respiratory Rate 20 20 Blood Pressure 99/55 L 133/76 Pulse Oximetry 97 96 96 Oxygen Delivery Room Air 11/13/23 04:35 11/13/23 08:12 11/13/23 08:00 Temperature 36.3 C L Pulse Rate 56 L 56 L Respiratory Rate 20 20 Blood Pressure 122/68 Pulse Oximetry 95 98 98 Oxygen Delivery Room Air Room Air Intake/Output Intake/Output: Intake & Output 11/10/23 11/11/23 11/12/23 11/13/23 22:59 22:59 23:59 23:59 Intake Total 855 Output Total Balance 855 Meds/Results Medications: Active Medications Generic Name Dose Route Start Last Admin Trade Name Freq PRN Reason Stop Dose Admin Acetaminophen 650 mg 11/09/23 23:43 Acetaminophen 325 Mg Tablet PO Q6H PRN Mild Pain (1-3) or Fever Acetaminophen 650 mg 11/10/23 09:00 11/13/23 09:36 Acetaminophen 325 Mg Tablet PO 650 mg BID SHANTI Administration Alprazolam 0.25 mg 11/10/23 09:00 11/13/23 09:37 Alprazolam (*Crx) 0.25 Mg Tablet PO 0.25 mg BID SHANTI Administration Aspirin 81 mg 11/10/23 09:00 11/13/23 09:37 Aspirin 81 Mg Chewable Tablet PO 81 mg DAILY SHANTI Administration Atorvastatin Calcium 40 mg 11/10/23 21:00 11/12/23 21:30 Atorvastatin 40 Mg Tablet PO 40 mg HS SHANTI Administration Baclofen 5 mg 11/10/23 09:00 11/13/23 09:36 Baclofen 5 Mg Tablet PO 5 mg Q12HR SHANTI Administration Carvedilol 3.125 mg 11/10/23 09:00 11/13/23 09:36 Carvedilol 3.125 Mg Tablet PO 3.125 mg Q12HR SHANTI Administration Duloxetine HCl 30 mg 11/10/23 09:00 11/13/23 09:36 Duloxetine Hcl 30 Mg Capsule.Dr Rdz
[2023-11-13 15:34] VITALS: BP 100/70; PULSE 66; RESP 18; TEMP 36.6; O2SAT 96
[2023-11-13 20:00] VITALS: O2SAT 98
[2023-11-13 20:35] VITALS: BP 122/73; PULSE 60; RESP 18; TEMP 35.8; O2SAT 98
[2023-11-13] MEDS: SENNA/DOCUSATE SODIUM TABLET 2 TAB PO (21:10)
[2023-11-13] MEDS: MELATONIN 3 MG TABLET PO (21:10)
[2023-11-13] MEDS: ATORVASTATIN 40 MG TABLET PO (21:11)
[2023-11-14 05:35] VITALS: BP 129/66; PULSE 72; RESP 20; TEMP 36.6; O2SAT 95
[2023-11-14] MEDS: PSYLLIUM POWDER PACKET 1 PACKET PO ×3 (05:43→21:03)
[2023-11-14 07:12] LABS: Hematocrit 31.3 % (37.0-47.0); Hemoglobin 10.3 g/dL (12.0-15.0); Mean Corpuscular HGB Conc 32.9 g/dl (32-36); Mean Corpuscular Hemoglobin 31.1 pg (26-34); Mean Corpuscular Volume 94.6 fl (80-100); Mean Platelet Volume 9.4 fl (7.4-10.4); Platelet Count Result 265 k/mm3 (150-375); Red Blood Count 3.31 M/mm3 (4.2-5.4); Red Cell Distribution Width 12.4 % (11.5-14.5)
[2023-11-14 07:34] LABS: Alanine Aminotransferase 18 U/L (6-35); Albumin Level 3.6 g/dL (3.5-5.1); Alkaline Phosphatase 78 U/L (38-126); Anion Gap 4 mmol/L (8-16); Aspartate Amino Transferase 29 U/L (14-36); Bilirubin,Total 0.4 mg/dL (0.2-1.3); Blood Urea Nitrogen 4 mg/dL (7-17); Calcium 9.4 mg/dL (8.4-10.2); Carbon Dioxide 28 mmol/L (22-30); Chloride 102 mmol/L (98-107); Estimated CRCL calculation 80 ml/min; Estimated Glomerular Filt Rate > 60; Glucose 84 mg/dL (65-110); Potassium 3.9 mmol/L (3.4-5.0); Sodium 134 mmol/L (137-145)
--- NOTE | 2023-11-14 07:38 | PM.IMPN ---
Progress Note: A&P Assessment and Plan (1) Fecal impaction: Code(s): K56.41 - Fecal impaction Status: Acute Assessment and Plan: KUB obtained 11/12 reveals that the fecal impaction has not resolved. Patient seen by general surgery and a digital rectal exam was performed, removing a portion of the impaction. Per patient she has had several liquid bowel movements. She is vegan and maintaining her diet well. She denies nausea and vomiting. She denies abdominal pain, but reports abdominal pressure on her left side. Patient received a water soluble enema today which patient tolerated well. The enema impression shows a large volume stool in the distal colon with marked distention of the rectosigmoid. The KUB reveals stable fecal impaction and severe constipation. Patient has not since had a bowel movement. Patient will remain inpatient because there is concern of immediate return if fecal impaction is not cleared. Fiber supplements polyethelene glycol lactulose po Mineral oil Senokot Miralax Folic acid Analgesics (2) Hemorrhagic stroke: Code(s): I61.9 - Nontraumatic intracerebral hemorrhage, unspecified Status: Chronic Assessment and Plan: History of right hemispheric stroke with resultant neurological deficit and left hemiplegia. Per patient she remains fairly mobile with a hemiplegic cane. Patient noted to have occasional word finding. Continue home medications. Aspirin Atorvastatin carvedilol Pregabalin (3) Seizure: Code(s): R56.9 - Unspecified convulsions Status: Acute Assessment and Plan: Past medical history of seizures. Patient presented to the ED for altered mental status, concern for occult seizure given patients history. She has since returned to her baseline. Continue Keppra 750 mg Q12 Neuro checks (4) Hyponatremia: Code(s): E87.1 - Hypo-osmolality and hyponatremia Status: Acute Assessment and Plan: Chronic hyponatremia. Patient remains at baseline. Continue to monitor labs (5) Hypertension: Qualifiers: Hypertension type: primary hypertension Qualified Code(s): I10 - Essential (primary) hypertension Code(s): I10 - Essential (primary) hypertension Status: Acute Assessment and Plan: Blood pressures remain stable. Well controlled on home medications. Continue Carvedilol 3.125mg Q12 hours Time Spent With Patient Time with patient: 25 - 35 minutes Subjective Date/time seen: 11/14/23 07:38 Interval history: Pleasant 58 year old female with past history of anemia, hyponatremia, hemorrhagic stroke, with resultant left hemiplegia, hypertension, and seizure disorder. Patient will have occasional difficulty with word finding during exam. Patient received a hypaque enema today which patient tolerated well. The enema impression shows a large volume stool in the distal colon with marked distention of the rectosigmoid. The KUB reveals stable fecal impaction and severe constipation. Patient has not since had a bowel movement. She denies abdominal pain, but reports abdominal pressure on her left side. Review of Systems Review of Systems: All systems reviewed & are unremarkable except as noted in HPI and below Exam Narrative: AF HR 60 RR 18 SpO2 98 BP 122/73 General: well nourished, well-developed female in no acute respiratory distress who is nontoxic appearing, lying semi recumbent in bed. HEENT: Normocephalic. Atraumatic. Pupils equal round reactive to light. Extraocular movement intact. Sclera clear and anicteric. No facial asymmetry. Chest: Lungs are clear to auscultation bilaterally. No wheezes or crackles. CV: Heart was regular rate and rhythm. S1-S2. No murmurs, gallops, or rubs. Abd: Abdomen was soft. Nontender. Nondistended. Positive bowel sounds. No organomegaly or masses. Ext: No clubbing, cyanosis, or edema. 2+ DP pulses bilaterally. Neuro: Patient is alert and oriented x4. Left hemip
[2023-11-14] MEDS: ACETAMINOPHEN 325 MG TABLET 650 MG PO ×2 (08:30→17:13)
[2023-11-14] MEDS: PREGABALIN (*CRX) 75 MG CAPSULE 150 MG PO ×3 (08:30→17:13)
[2023-11-14] MEDS: ASPIRIN 81 MG CHEWABLE TABLET PO (08:31)
[2023-11-14] MEDS: polyethylene glycoL 3350 17 GM POWD.PACK PO (08:31)
[2023-11-14] MEDS: levETIRAcetam 250 MG TABLET 750 MG PO ×2 (08:31→21:02)
[2023-11-14 08:32] VITALS: PULSE 80
[2023-11-14] MEDS: PANTOPRAZOLE 40 MG TABLET PO (08:32)
[2023-11-14] MEDS: ALPRAZolam (*CRX) 0.25 MG TABLET PO ×2 (08:32→17:13)
[2023-11-14] MEDS: BACLOFEN 5 MG TABLET PO ×2 (08:32→21:02)
[2023-11-14] MEDS: DULoxetine HCL 30 MG CAPSULE.DR PO (08:32)
[2023-11-14] MEDS: LACOSAMIDE (*CRX) 100 MG TABLET PO ×2 (08:32→21:02)
[2023-11-14] MEDS: carvediloL 3.125 MG TABLET PO (08:32)
[2023-11-14] MEDS: MINERAL OIL 30 ML UDC 15 ML PO ×2 (08:33→17:18)
[2023-11-14] MEDS: FOLIC ACID 1 MG TABLET 5 MG PO (08:44)
--- NOTE | 2023-11-14 13:02 | PM.PNGS ---
Progress Note: A&P Assessment and Plan (1) Fecal impaction in rectum: Code(s): K56.41 - Fecal impaction Status: Chronic Assessment and Plan: Clinically improving but by imaging the retained stool, especially the stool ball in the rectum, have not really diminished. She had some defecation with the Hypaque enema but I was hoping for more. Will give polyethylene glycol in Gatorade oral prep similar to colonoscopy. Patient getting anxious to go home. She definitely feels better and is eating normally. I am concerned that this will come back if we do not get rid of the fecal impaction. (2) Stercoral colitis: Code(s): K52.89 - Other specified noninfective gastroenteritis and colitis Status: Acute Assessment and Plan: Most likely this is resolved. Patient feels much better and I think we have at least diminish to the fecal stool ball in the rectum such that the inflammation of the rectum has resolved. (3) Hemorrhagic stroke: Code(s): I61.9 - Nontraumatic intracerebral hemorrhage, unspecified Status: Chronic (4) Constipation, chronic: Code(s): K59.09 - Other constipation Status: Chronic Subjective Subjective Date/Time Seen: 11/14/23 13:02 Patient reports: no new complaints, feels better, tolerating a regular diet, bowel movement and afebrile Interval history: Wants to go home as soon as feasible Review of Systems Review of Systems: All systems reviewed & are unremarkable except as noted in HPI and below (HPI) Exam Const: General: comfortable and no acute distress Orientation/consciousness: patient oriented x3 GI: Inspection: normal to inspection, non-distended and scaphoid GI Palp: Yes Soft to palpation, Yes Tenderness to palpation present (GI) (Much less tender, improved), No Guarding due to palpation present (GI), Yes Palpable mass present (Can not feel the rectal impaction, improved) and No Rebound tenderness present Neuro: General: patient oriented x3 Extrem: General: no calf tenderness and no edema Psych: Affect: normal affect Insight: Good insight present (Psych) Judgement: Good judgement present (Psych) Objective Data Vital Signs Vital Signs: Vital Signs - 24 hr 11/13/23 15:34 11/13/23 20:35 11/13/23 20:00 Temperature 36.6 C 35.8 C L Pulse Rate 66 60 Respiratory Rate 18 18 Blood Pressure 100/70 122/73 Pulse Oximetry 96 98 98 Oxygen Delivery Room Air 11/14/23 05:35 11/14/23 08:32 11/14/23 08:30 Temperature 36.6 C Pulse Rate 72 80 Respiratory Rate 20 Blood Pressure 129/66 Pulse Oximetry 95 Oxygen Delivery Room Air Intake/Output Intake/Output: Intake & Output 11/11/23 11/12/23 11/13/23 11/14/23 22:59 23:59 23:59 23:59 Intake Total 1635 270 Output Total Balance 1635 270 Meds/Results Medications: Active Medications Generic Name Dose Route Start Last Admin Trade Name Freq PRN Reason Stop Dose Admin Acetaminophen 650 mg 11/09/23 23:43 Acetaminophen 325 Mg Tablet PO Q6H PRN Mild Pain (1-3) or Fever Acetaminophen 650 mg 11/10/23 09:00 11/14/23 08:30 Acetaminophen 325 Mg Tablet PO 650 mg BID SHANTI Administration Alprazolam 0.25 mg 11/10/23 09:00 11/14/23 08:32 Alprazolam (*Crx) 0.25 Mg Tablet PO 0.25 mg BID SHANTI Administration Aspirin 81 mg 11/10/23 09:00 11/14/23 08:31 Aspirin 81 Mg Chewable Tablet PO 81 mg DAILY SHANTI Administration Atorvastatin Calcium 40 mg 11/10/23 21:00 11/13/23 21:11 Atorvastatin 40 Mg Tablet PO 40 mg HS SHANTI Administration Baclofen 5 mg 11/10/23 09:00 11/14/23 08:32 Baclofen 5 Mg Tablet PO 5 mg Q12HR SHANTI Administration Carvedilol 3.125 mg 11/10/23 09:00 11/14/23 08:32 Carvedilol 3.125 Mg Tablet PO 3.125 mg Q12HR SHANTI Administration Duloxetine HCl 30 mg 11/10/23 09:00 11/14/23 08:32 Duloxetine Hcl 30 Mg Capsule.Dr PO 30 mg DAILY SHANTI Administration Folic Acid 5 mg 11/09
[2023-11-14] MEDS: polyethylene glycoL 3350 238 GM BOTTLE PO (13:35)
[2023-11-14] MEDS: LACTULOSE 20 GM/30 ML UDC PO ×2 (13:35→21:03)
[2023-11-14 14:00] VITALS: BP 106/62; PULSE 68; RESP 18; TEMP 36.6; O2SAT 100
[2023-11-14 20:00] VITALS: O2SAT 100
[2023-11-14] MEDS: ATORVASTATIN 40 MG TABLET PO (21:02)
[2023-11-14] MEDS: MELATONIN 3 MG TABLET PO (21:02)
[2023-11-14] MEDS: SENNA/DOCUSATE SODIUM TABLET 2 TAB PO (21:02)
[2023-11-14 22:00] VITALS: BP 96/58; PULSE 77; RESP 16; TEMP 37.2; O2SAT 97
[2023-11-15 05:59] VITALS: BP 96/59; PULSE 67; RESP 14; TEMP 36.9; O2SAT 94
[2023-11-15 08:00] VITALS: PULSE 73; RESP 14; O2SAT 94
--- NOTE | 2023-11-15 08:45 | PM.PNGS ---
Progress Note: A&P Assessment and Plan (1) Fecal impaction in rectum: Code(s): K56.41 - Fecal impaction Status: Resolved Assessment and Plan: After many days of stool softeners, laxatives, as well as enemas, patient has finally passed all the residual stool in her colon after receiving essentially a colonoscopy prep yesterday afternoon. This prep, followed a water-soluble contrast enema in the morning. No evidence of persistent retained stool or fecal impaction on plain films today. No surgical follow-up needed. (2) Stercoral colitis: Code(s): K52.89 - Other specified noninfective gastroenteritis and colitis Status: Resolved Assessment and Plan: Resolved with resolution of the fecal impaction (3) Constipation, chronic: Code(s): K59.09 - Other constipation Status: Chronic Assessment and Plan: I will put the bowel regimen in the discharge orders that I think would be appropriate for the patient in the alf. I would probably discontinue the lactulose and just use Metamucil, mineral oil, and 2 Senokot S tabs at bedtime. If patient becomes constipated again, I would recommend additional treatment such as Linzess. No surgical follow-up needed. Subjective Subjective Date/Time Seen: 11/15/23 08:45 Patient reports: no new complaints, feels better, tolerating a regular diet, bowel movement (25 documented BMs yesterday after polyethylene glycol colonoscopy prep given) and afebrile Interval history: Patient is sleepy this morning but denies any abdominal pain. Not surprised she is sleepy after the laxatives she was given yesterday and the multiple bowel movements. Review of Systems Review of Systems: All systems reviewed & are unremarkable except as noted in HPI and below (HPI) Exam Const: General: cooperative, comfortable, no acute distress, tired appearing and thin Orientation/consciousness: No confusion GI: Inspection: normal to inspection, non-distended, scaphoid and no visible herniation GI Palp: Yes Firmness to palpation present (GI), No Tenderness to palpation present (GI), No Guarding due to palpation present (GI), No Hernia present, No Palpable mass present and No Rebound tenderness present Objective Data Vital Signs Vital Signs: Vital Signs - 24 hr 11/14/23 14:00 11/14/23 20:00 11/14/23 22:00 Temperature 36.6 C 37.2 C Pulse Rate 68 77 Respiratory Rate 18 16 Blood Pressure 106/62 96/58 L Pulse Oximetry 100 100 97 Oxygen Delivery Room Air 11/15/23 05:59 Temperature 36.9 C Pulse Rate 67 Respiratory Rate 14 Blood Pressure 96/59 L Pulse Oximetry 94 Oxygen Delivery Intake/Output Intake/Output: Intake & Output 11/12/23 11/13/23 11/14/23 11/15/23 23:59 23:59 23:59 23:59 Intake Total 1635 1180 Output Total Balance 1635 1180 Meds/Results Medications: Active Medications Generic Name Dose Route Start Last Admin Trade Name Freq PRN Reason Stop Dose Admin Acetaminophen 650 mg 11/09/23 23:43 Acetaminophen 325 Mg Tablet PO Q6H PRN Mild Pain (1-3) or Fever Acetaminophen 650 mg 11/10/23 09:00 11/14/23 17:13 Acetaminophen 325 Mg Tablet PO 650 mg BID SHANTI Administration Alprazolam 0.25 mg 11/10/23 09:00 11/14/23 17:13 Alprazolam (*Crx) 0.25 Mg Tablet PO 0.25 mg BID SHANTI Administration Aspirin 81 mg 11/10/23 09:00 11/14/23 08:31 Aspirin 81 Mg Chewable Tablet PO 81 mg DAILY SHANTI Administration Atorvastatin Calcium 40 mg 11/10/23 21:00 11/14/23 21:02 Atorvastatin 40 Mg Tablet PO 40 mg HS SHANTI Administration Baclofen 5 mg 11/10/23 09:00 11/14/23 21:02 Baclofen 5 Mg Tablet PO 5 mg Q12HR SHANTI Administration Carvedilol 3.125 mg 11/10/23 09:00 11/14/23 21:03 Carvedilol 3.125 Mg Tablet PO Not Given Q12HR SHANTI Duloxetine HCl 30 mg 11/10/23 09:00 11/14/23 08:32 Duloxetine Hcl 30 Mg Capsule.Dr PO 30 mg DAILY SHANTI Administration Folic Acid
[2023-11-15 09:05] VITALS: PULSE 73
[2023-11-15] MEDS: levETIRAcetam 250 MG TABLET 750 MG PO (09:05)
[2023-11-15] MEDS: ALPRAZolam (*CRX) 0.25 MG TABLET PO (09:05)
[2023-11-15] MEDS: carvediloL 3.125 MG TABLET PO (09:05)
[2023-11-15] MEDS: ASPIRIN 81 MG CHEWABLE TABLET PO (09:05)
[2023-11-15] MEDS: BACLOFEN 5 MG TABLET PO (09:05)
[2023-11-15] MEDS: DULoxetine HCL 30 MG CAPSULE.DR PO (09:06)
[2023-11-15] MEDS: LACOSAMIDE (*CRX) 100 MG TABLET PO (09:06)
[2023-11-15] MEDS: PANTOPRAZOLE 40 MG TABLET PO (09:06)
[2023-11-15] MEDS: PREGABALIN (*CRX) 75 MG CAPSULE 150 MG PO (09:06)
[2023-11-15] MEDS: FOLIC ACID 1 MG TABLET 5 MG PO (09:06)
[2023-11-15] MEDS: ACETAMINOPHEN 325 MG TABLET 650 MG PO (09:06)
[2023-11-15] MEDS: PSYLLIUM POWDER PACKET 1 PACKET PO (09:08)
--- NOTE | 2023-11-15 13:23 | PM.DS ---
DS: Admitting Diagnosis Discharge Date 11/15/2023: Admitting Diagnosis Assessment and plan (1) Stercoral colitis: ?Code(s): K52.89 - Other specified noninfective gastroenteritis and colitis ?Status:?Acute (2) Confusion: ?Code(s): R41.0 - Disorientation, unspecified ?Status:?Acute (3) Constipation: ?Qualifiers: ?Constipation type:?unspecified constipation type? Qualified Code(s):?K59.00 - Constipation, unspecified ?Code(s): K59.00 - Constipation, unspecified ?Status:?Acute (4) Chronic hyponatremia: ?Code(s): E87.1 - Hypo-osmolality and hyponatremia ?Status:?Chronic (5) Hypomagnesemia: ?Code(s): E83.42 - Hypomagnesemia ?Status:?Acute (6) Chronic anemia: ?Code(s): D64.9 - Anemia, unspecified ?Status:?Chronic (7) Seizure disorder: ?Code(s): G40.909 - Epilepsy, unspecified, not intractable, without status epilepticus ?Status:?Chronic (8) Hypertension: ?Qualifiers: ?Hypertension type:?primary hypertension? Qualified Code(s):?I10 - Essential (primary) hypertension ?Code(s): I10 - Essential (primary) hypertension ?Status:?Acute DS: Discharge Diagnosis Discharge Diagnosis (1) Fecal impaction in rectum: Code(s): K56.41 - Fecal impaction Status: Resolved (2) Stercoral colitis: Code(s): K52.89 - Other specified noninfective gastroenteritis and colitis Status: Resolved (3) Hypomagnesemia: Code(s): E83.42 - Hypomagnesemia Status: Acute (4) Constipation, chronic: Code(s): K59.09 - Other constipation Status: Chronic (5) Diabetes: Code(s): E11.9 - Type 2 diabetes mellitus without complications Status: Acute (6) Chronic hyponatremia: Code(s): E87.1 - Hypo-osmolality and hyponatremia Status: Chronic (7) Confusion: Code(s): R41.0 - Disorientation, unspecified Status: Acute (8) AMS (altered mental status): Code(s): R41.82 - Altered mental status, unspecified Status: Acute (9) Chronic anemia: Code(s): D64.9 - Anemia, unspecified Status: Chronic (10) Chronic kidney disease, stage 3: Qualifiers: Chronic kidney disease stage 3 subtype: stage 3b (GFR 30-44) Qualified Code(s): N18.32 - Chronic kidney disease, stage 3b Code(s): N18.30 - Chronic kidney disease, stage 3 unspecified Status: Chronic (11) Hypertension: Qualifiers: Hypertension type: primary hypertension Qualified Code(s): I10 - Essential (primary) hypertension Code(s): I10 - Essential (primary) hypertension Status: Acute (12) Combined systolic and diastolic congestive heart failure: Qualifiers: Heart failure chronicity: chronic Qualified Code(s): I50.42 - Chronic combined systolic (congestive) and diastolic (congestive) heart failure Code(s): I50.40 - Unspecified combined systolic (congestive) and diastolic (congestive) heart failure Status: Chronic (13) Seizure disorder: Code(s): G40.909 - Epilepsy, unspecified, not intractable, without status epilepticus Status: Chronic (14) Status post CVA: Code(s): Z86.73 - Personal history of transient ischemic attack (TIA), and cerebral infarction without residual deficits Status: Acute DS: Summary Hospital Course Reason for hospitalization: Patient admitted with altered mental status. Workup showed chronic constipation with fecal impaction Hospital Course: H&P: HPI History of Present Illness Date/Time: 11/09/23? 18:30 Chief Complaint: Altered mental status. Narrative: This is a very pleasant 58-year-old female with history of hemorrhagic stroke with left-sided hemiplegia, seizures, hypertension, GERD, chronic hyponatremia, and chronic kidney disease who presented to the emergency department for evaluation of altered mental status. She is alert and oriented x4, although reports that she still ?feel
[2023-11-15 14:00] VITALS: BP 93/60; PULSE 92; RESP 16; TEMP 36.7; O2SAT 94
[2023-11-16 20:55] LABS: Haptoglobin 224 mg/dL (43-212)
== END 2023-11-15 15:00 | DRG 247 ==
LOC: ANHED 17:31 → ANH3MEDSUR 11-10 06:29
PROVIDERS: Nurse Practitioner Family; Physician Assistant; Admitting Provider Family Medicine; Emergency Provider Student in an Organized Health Care Education/Training Program; PCP Internal Medicine; Visit Provider Family Medicine
DX: K56.41 Fecal impaction (principal); K52.89 Other specified noninfective gastroenteritis and colitis; I12.9 Hypertensive chronic kidney disease with stage 1 through stage 4 chronic kidney disease, or unspecified chronic kidney disease; I50.42 Chronic combined systolic (congestive) and diastolic (congestive) heart failure; N18.32 Chronic kidney disease, stage 3b; E83.42 Hypomagnesemia; E87.1 Hypo-osmolality and hyponatremia; D64.9 Anemia, unspecified; R41.82 Altered mental status, unspecified; G40.909 Epilepsy, unspecified, not intractable, without status epilepticus; Z20.822 Contact with and (suspected) exposure to COVID-19; I69.154 Hemiplegia and hemiparesis following nontraumatic intracerebral hemorrhage affecting left non-dominant side; Z79.82 Long term (current) use of aspirin; Z87.442 Personal history of urinary calculi
CPT/HCPCS: 36415; 70450; 71046; 74018; 74177; 74270; 80048; 80053; 81003; 82274; 82607; 82728; 82746; 83010; 83540; 83550; 83605; 83615; 83735; 84484; 85025; 85027; 85610; 85730; 86140; 87637; 96360; 96361; 97110; 97161; 97530; 99285; A9270; J3475; J7120; Q9967

== ENCOUNTER 2024-01-24 11:24 | Observation (INO) | payer OTHER, SELFPAY ==
[2024-01-24] VITALS (8 sets, daily range): BP systolic 100–133; BP diastolic 57–75; PULSE 72–94; RESP 16–19; TEMP 36.2–37.6; O2SAT 94–99
--- NOTE | ~2024-01-24 | XR_ITS ---
Portable chest x-ray Comparison: 11/09/2023 Clinical History: Altered mental status Findings: Lungs are clear, without focal consolidation or pleural effusion. Cardiomediastinal silho uette is stable. Bones and soft tissues are unremarkable. Impression: Clear lungs. Reviewed, dictated and finalized at location . Impression: Clear lungs.
--- NOTE | ~2024-01-24 | CT_ITS ---
CT head without contrast Indication: Altered mental status COMPARISON: 11/09/2023 Technique: Serial scans were obtained through the brain without the administration of contrast. Dose reduction technique was used on this scan by utilizing automated exposure control and iterative recon struction technique. The dose-length product (DLP) was 605.33 mGy-cm. Findings: There is no evidence of intracranial hemorrhage, mass lesion, or acute infarct. Chronic enc ephalomalacia the superior frontal lobe is unchanged, with overlying right frontal craniotomy. The ve ntricles and subarachnoid spaces are dilated, consistent with mild to moderate atrophy. Low attenuat ion regions are seen within the periventricular white matter bilaterally, likely representing changes from chronic microvascular ischemic disease. There is no evidence of edema, mass effect or midline shift. The visualized paranasal sinuses and mastoid air cells are clear. Impression: No intracranial hemorrhage, mass, or acute infarct. Stable chronic encephalomalacia superior right frontal lobe with overlying right frontal craniotomy. Atrophy and chronic white matter changes, as above. Reviewed, dictated and finalized at [facility]. Impression: No intracranial hemorrhage, mass, or acute infarct. Stable chronic encephalomalacia superior right frontal lobe with overlying righ t frontal craniotomy. Atrophy and chronic white matter changes, as above.
--- NOTE | 2024-01-24 11:36 | ECG_ITS ---
SEE SCANNED COPY FOR CONFIRMED REPORT MTDD
--- NOTE | 2024-01-24 12:04 | PC.NURSE ---
2 ED RNs attempted IV access without success. Vascular access called.
--- NOTE | 2024-01-24 12:38 | PC.NURSE ---
Catherine from [facility] called for update.
[2024-01-24 12:46] LABS: Basophils Absolute Auto 0.1 K/mm3 (0.0-0.1); Basophils Percent Auto 0.5 % (0.2-1.2); Eosinophils Absolute Auto 0.3 K/mm3 (0-0.3); Eosinophils Percent Auto 1.8 % (0-4.4); Hematocrit 32.3 % (37.0-47.0); Hemoglobin 10.9 g/dL (12.0-15.0); Immature Granulocyte Absolute 0.05 K/mm3 (0.00-0.031); Immature Granulocyte Percent A 0.3 % (0-0.5); Immature Platelet Fraction Pct 1.3 % (0.9-11.2); Lymphocytes Absolute Auto 1.06 K/mm3 (0.9-3.2); Lymphocytes Percent Auto 6.5 % (18.3-44.2); Mean Corpuscular HGB Conc 33.7 g/dl (32-36); Mean Corpuscular Hemoglobin 31.4 pg (26-34); Mean Corpuscular Volume 93.1 fl (80-100); Mean Platelet Volume 9.7 fl (7.4-10.4); Monocytes Absolute Auto 1.4 K/mm3 (0.1-0.6); Monocytes Percent Auto 8.6 % (2.6-8.5); Neutrophils Absolute Auto 13.5 K/mm3 (1.3-6.7); Neutrophils Percent Auto 82.3 % (45.5-73.1); Platelet Count Result 280 k/mm3 (150-375); Red Blood Count 3.47 M/mm3 (4.2-5.4); Red Cell Distribution Width 12.8 % (11.5-14.5); White Blood Count 16.4 K/mm3 (4.5-10.0)
--- NOTE | 2024-01-24 12:58 | ED.GENADULT ---
HPI - General Adult General Chief complaint: Altered Mental Status Stated complaint: AMS Time Seen by Provider: 01/24/24 12:05 History of Present Illness HPI narrative: This is a 59-year-old female presenting for an episode of unresponsiveness. She was found in the [facility] slumped over in her chair. She was unresponsive that time. EMS was called when they arrived she was waking up but was hypotensive. They placed her in Trendelenburg she returned to her baseline mental status. At this time patient is A&O x4. 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 Patient states she was just tired. Patient denies fevers chills chest pain difficulty breathing abdominal pain nausea vomiting diarrhea urinary symptoms. Related Data Home Medications Medication Instructions Recorded Confirmed acetaminophen 325 mg tablet 650 mg PO BID 10/21/21 11/09/23 folic acid 1 mg tablet 5 mg PO DAILY 10/21/21 11/09/23 lacosamide 100 mg tablet (Vimpat) 100 mg PO BID 10/21/21 11/09/23 levetiracetam 750 mg tablet 750 mg PO BID 10/21/21 11/09/23 melatonin 3 mg tablet 3 mg PO HS 10/21/21 11/09/23 aspirin 81 mg chewable tablet 81 mg PO DAILY 02/21/22 11/09/23 omeprazole 20 mg capsule,delayed 20 mg PO DAILY 02/21/22 11/09/23 release baclofen 5 mg tablet 5 mg PO BID 10/26/23 11/09/23 duloxetine 30 mg capsule,delayed 30 mg PO DAILY 10/26/23 11/09/23 release (Cymbalta) lidocaine 5 % topical patch 1 patch topical DAILY 10/26/23 11/09/23 polyethylene glycol 3350 17 gram 17 g PO DAILY 10/26/23 11/09/23 oral powder packet (Miralax) pregabalin 150 mg capsule 150 mg PO TID 10/26/23 11/09/23 alprazolam 0.25 mg tablet 0.25 mg PO BID 11/09/23 11/09/23 atorvastatin 40 mg tablet 40 mg PO HS 11/09/23 11/09/23 carvedilol 3.125 mg tablet (Coreg) 3.125 mg PO BID 11/09/23 11/09/23 Allergies Allergy/AdvReac Type Severity Reaction Status Date / Time No Known Allergies Allergy Unknown Verified 10/17/23 12:19 [facility] Past Medical History Medical History Chronic anemia Chronic hyponatremia Chronic kidney disease, stage 3 Combined systolic and diastolic congestive heart failure Poorly documented in chart. Hemorrhagic stroke September 2021, persistent left hemiparesis, craniotomies were related to this Hypertension Kidney stones Seizure disorder Surgical History Surgical History History of craniotomy 3 craniotomies within a week in September 2021 History of cystoscopy (12/2004) History of gastrostomy tube placement Removed 08/04/2022. History of ureter stent (12/2004) Family History Family History Mother Alzheimer's dementia A-fib Father Cerebrovascular accident Hypertension Heart disease Cancer Sibling Cancer Depression Social History Social History Social History: Surrogate medical decision maker: Shyam Figueroa, daughter. Code status: Full code. Smoking status: Never smoker Tobacco type: cigarettes Alcohol intake: never Drinks per week: 2 Substance use: never Substance use type: does not use Last use: 09/24/21 Do You Feel Safe in your Home?: Yes Lack of Transportation: No Lack of Food: Never True Current Housing: I Have Housing Concerned About Future Housing: No Difficulty Paying Gas/Electric Bills: No Difficulty Paying for Meds: No Currently Unemployed: No Education: High School Diploma/GED Difficulty w/ Childcare or Family Care: No Spiritual care concerns: No Exam Narrative: APPEARANCE: No apparent distress. A&O x4 Head: atraumatic. EYES: EOMI, NOSE: Atraumatic NECK: Trachea midline RESPIRATORY: No increased rate of breathing CTAB CARDIOVASCULAR: RRR, no peripheral edema ABDOMINAL: Non-distende
[2024-01-24 12:59] LABS: Lactic Acid Reflex 1.7 mmol/L (0.7-2.0)
[2024-01-24 13:06] LABS: Troponin I 0.015 ng/mL (0.000-0.034)
[2024-01-24 13:08] LABS: Prothrombin Time 13.1 Seconds (11.1-14.7)
[2024-01-24 13:09] LABS: Partial Thromboplastin Time 20.4 Seconds (22.3-36.8)
--- NOTE | 2024-01-24 13:14 | PC.NURSE ---
blood cultures obtained by Tico Richardson and sent down by Maria D Martinez RN
[2024-01-24 13:21] LABS: Influenza A QL RT-PCR Negative (Negative); Influenza B QL RT-PCR Negative (Negative); RSV RNA, RT-PCR Negative (Negative); SARS-CoV-2 RNA PCR Negative (Negative)
[2024-01-24 13:37] LABS: NT Pro B Type Natriuretic Pept 589 pg/mL (19.9-100)
[2024-01-24 14:35] LABS: Lipase 114 U/L (23-300); Magnesium 1.5 mg/dL (1.6-2.3); Phosphorus 4.2 mg/dL (2.5-4.5)
--- NOTE | 2024-01-24 14:45 | PC.NURSE ---
Called lab - chemistry - to check on CMP results.
[2024-01-24 14:50] LABS: Alanine Aminotransferase 15 U/L (6-35); Albumin Level 4.3 g/dL (3.5-5.1); Alkaline Phosphatase 83 U/L (38-126); Anion Gap 10 mmol/L (4-12); Aspartate Amino Transferase 34 U/L (14-36); Bilirubin,Total 0.7 mg/dL (0.2-1.3); Blood Urea Nitrogen 10 mg/dL (7-17); Calcium 9.4 mg/dL (8.4-10.2); Carbon Dioxide 24 mmol/L (22-30); Chloride 99 mmol/L (98-107); Estimated CRCL calculation 58 ml/min; Estimated Glomerular Filt Rate > 60; Glucose 88 mg/dL (65-110); Potassium 4.7 mmol/L (3.4-5.0); Sodium 133 mmol/L (137-145)
[2024-01-24 15:01] LABS: Appearance Urine Cloudy (Clear); Bacteria Urine 4+ /hpf; Bilirubin Urine Negative (Negative); Blood Urine 1+ (Negative); Color Urine Yellow (Yellow); Glucose Urine UA Negative (Negative); Ketones Urine Negative (Negative); Leukocyte Esterase Ur 3+ LEU/UL (Negative); Nitrate Urine Positive (Negative); Protein Urine Negative (Negative); RBC Urine 0-2 /hpf (0-2); Specific Grav Ur 1.011 (1.001-1.035); Squamous Epithelial Cell Urine None Seen /hpf (Few); Urobilinogen Urine 0.2 mg/dL (<2.0); WBC Urine >100 /hpf (0-3); pH Urine 7.5 (5.0-9.0)
[2024-01-24 15:06] LABS: Add Urine Microscopic? YES
--- NOTE | 2024-01-24 16:22 | ECG_ITS ---
SEE SCANNED COPY FOR CONFIRMED REPORT MTDD
[2024-01-24] MEDS: SODIUM CHLORIDE 0.9% IV 2,000 ML 999 ML IV CONT (16:35)
[2024-01-24] MEDS: MAGNESIUM SULF 2 GM/WATER 50ML 2 GM/50 ML BAG IVPB (16:35)
[2024-01-24 17:07] LABS: Troponin I < 0.012 ng/mL (0.000-0.034)
--- NOTE | 2024-01-24 17:34 | PM.IMHP ---
H&P: HPI History of Present Illness Date/Time: 01/24/24 17:34 Chief Complaint: Unresponsive Narrative: 59 y/o F presented here after unresponsive episode with PMH of hemorrhagic stroke with left-sided hemiplegia, seizures, hypertension, GERD, chronic hyponatremia, and chronic kidney disease. Patient presented here via EMS from [place] with AMS. Per EMS report to the ED, initial call was made due to patient being unresponsive with a hsu pallor, shallow respirations, and weak carotid pulse. Upon their arrival patient was awake but hypotensive. Patient was placed in Trendelenburg by EMS crew, patient then return to her baseline orientation/mental status (A/Ox4 with chronic left sided weakness due to previous ruptured aneurysm and neurologic deficit). Patient reporting fatigue starting 1-2 days ago and LUE pain this morning, improved at present. Otherwise denying dysuria, hematuria, urinary frequency, fever, chills, or body aches. Denies chest pain, palpitations, or shortness of breath. Denies history of syncopal episodes. Denies recollection of events this morning, only remembers sitting down due to weakness and then remembers waking up to paramedics and nurses around her. Last admitted here from 11/09/23-11/15/23 for stercoral colitis /fecal impaction and AMS. Initial VS at presentation: 97.1? F, HR 86, R 19, 100/62, and 94% on RA. ED workup showed: WBC 16.4, stable/chronic anemia, sodium 133, creatinine 0.7 and GFR >60, magnesium 1.5, initial troponin 0.015 (2nd negative), BNP 589, and UA consistent with UTI. Viral PCR negative. head CT showed no acute findings, stable chronic encephalomalacia of superior right frontal lobe with overlying right frontal craniotomy, atrophy and chronic white matter changes. CXR showed clear lungs. Review of Systems Review of Systems: All systems reviewed & are unremarkable except as noted in HPI and below PMFSH Past Medical History Medical History Chronic anemia Chronic hyponatremia Chronic kidney disease, stage 3 Combined systolic and diastolic congestive heart failure Poorly documented in chart. Hemorrhagic stroke September 2021, persistent left hemiparesis, craniotomies were related to this Hypertension Kidney stones Seizure disorder Surgical History Surgical History History of craniotomy 3 craniotomies within a week in September 2021 History of cystoscopy (12/2004) History of gastrostomy tube placement Removed 08/04/2022. History of ureter stent (12/2004) Family History Family History Mother Alzheimer's dementia A-fib Father Cerebrovascular accident Hypertension Heart disease Cancer Sibling Cancer Depression Social History Social History Social History: Surrogate medical decision maker: Shyam Figueroa, daughter. Code status: Full code. Smoking status: Former smoker Tobacco type: cigarettes Alcohol intake: never Drinks per week: 2 Substance use: never Substance use type: does not use Last use: 09/24/21 Do You Feel Safe in your Home?: Yes Lack of Transportation: No Lack of Food: Never True Current Housing: I Have Housing Concerned About Future Housing: No Difficulty Paying Gas/Electric Bills: No Difficulty Paying for Meds: No Currently Unemployed: No Education: High School Diploma/GED Difficulty w/ Childcare or Family Care: No Spiritual care concerns: No Meds Home Medications and Allergies Home Medications Medication Instructions Recorded Confirmed Type acetaminophen 325 mg tablet 650 mg PO BID 10/21/21 01/24/24 History folic acid 1 mg tablet 5 mg PO DAILY 10/21/21 01/24/24 History lacosamide 100 mg tablet (Vimpat) 100 mg PO BID 10/21/21 01/24/24 History levetiracetam 750 mg tablet 750 mg PO BID 10/21/21
--- NOTE | 2024-01-24 17:55 | ADMGEN ---
This patient, Martina Figueroa, was admitted to Medical Room 258-01. Patient/family oriented to hospital policies and general routines including ID bracelet, bed and alarms, visiting hours, pain management, procedures, bathroom and other care routines, personal items, smoking policy, room service/diet, and visiting hours. Information on how to activate the Rapid Response Team has been discussed. Patient/Family are encouraged to report perceived risks to care and to ask questions if they do not understand what they are told or what they should do.
[2024-01-24] MEDS: LACTATED RINGERS 1,000 ML 125 ML IV CONT (18:34)
[2024-01-24] MEDS: PREGABALIN (*CRX) 75 MG CAPSULE 150 MG PO (23:18)
[2024-01-25] VITALS (8 sets, daily range): BP systolic 111–146; BP diastolic 58–68; PULSE 62–87; RESP 16–18; TEMP 36.3–36.6; O2SAT 94–98
[2024-01-25 05:37] LABS: Basophils Absolute Auto 0.1 K/mm3 (0.0-0.1); Basophils Percent Auto 0.5 % (0.2-1.2); Eosinophils Absolute Auto 0.2 K/mm3 (0-0.3); Eosinophils Percent Auto 1.5 % (0-4.4); Hematocrit 33.3 % (37.0-47.0); Hemoglobin 10.7 g/dL (12.0-15.0); Immature Granulocyte Absolute 0.08 K/mm3 (0.00-0.031); Immature Granulocyte Percent A 0.5 % (0-0.5); Lymphocytes Absolute Auto 2.12 K/mm3 (0.9-3.2); Lymphocytes Percent Auto 13.6 % (18.3-44.2); Mean Corpuscular HGB Conc 32.1 g/dl (32-36); Mean Corpuscular Hemoglobin 30.7 pg (26-34); Mean Corpuscular Volume 95.7 fl (80-100); Mean Platelet Volume 9.1 fl (7.4-10.4); Monocytes Absolute Auto 1.5 K/mm3 (0.1-0.6); Monocytes Percent Auto 9.6 % (2.6-8.5); Neutrophils Absolute Auto 11.6 K/mm3 (1.3-6.7); Neutrophils Percent Auto 74.3 % (45.5-73.1); Platelet Count Result 225 k/mm3 (150-375); Red Blood Count 3.48 M/mm3 (4.2-5.4); Red Cell Distribution Width 12.9 % (11.5-14.5); White Blood Count 15.6 K/mm3 (4.5-10.0)
[2024-01-25 05:42] LABS: Alanine Aminotransferase 15 U/L (6-35); Albumin Level 3.9 g/dL (3.5-5.1); Alkaline Phosphatase 78 U/L (38-126); Anion Gap 7 mmol/L (4-12); Aspartate Amino Transferase 23 U/L (14-36); Bilirubin,Total 0.5 mg/dL (0.2-1.3); Blood Urea Nitrogen 7 mg/dL (7-17); Calcium 8.8 mg/dL (8.4-10.2); Carbon Dioxide 21 mmol/L (22-30); Chloride 104 mmol/L (98-107); Estimated CRCL calculation 96 ml/min; Estimated Glomerular Filt Rate > 60; Glucose 72 mg/dL (65-110); Magnesium 1.8 mg/dL (1.6-2.3); Phosphorus 3.4 mg/dL (2.5-4.5); Sodium 132 mmol/L (137-145)
[2024-01-25] MEDS: LACTATED RINGERS 1,000 ML 125 ML IV CONT ×2 (05:58→19:46)
[2024-01-25] MEDS: FOLIC ACID 1 MG TABLET 5 MG PO (08:09)
[2024-01-25] MEDS: CHOLECALCIFEROL 1,000 UNITS TABLET 5000 UNITS PO (08:09)
[2024-01-25] MEDS: SODIUM CHLORIDE 1 GM TABLET PO (08:09)
[2024-01-25] MEDS: DOCUSATE SODIUM 100 MG CAPSULE PO (08:09)
[2024-01-25] MEDS: ALPRAZolam (*CRX) 0.25 MG TABLET PO ×2 (08:09→16:35)
[2024-01-25] MEDS: ACETAMINOPHEN 325 MG TABLET 650 MG PO ×2 (08:09→20:39)
[2024-01-25] MEDS: PSYLLIUM POWDER PACKET 1 PACKET PO (08:10)
[2024-01-25] MEDS: DULoxetine HCL 30 MG CAPSULE.DR PO (08:10)
[2024-01-25] MEDS: ASPIRIN 81 MG CHEWABLE TABLET PO (08:10)
[2024-01-25] MEDS: PANTOPRAZOLE 40 MG TABLET PO (08:10)
[2024-01-25] MEDS: levETIRAcetam 250 MG TABLET 750 MG PO ×2 (08:10→20:38)
[2024-01-25] MEDS: PREGABALIN (*CRX) 75 MG CAPSULE 150 MG PO ×3 (08:10→16:35)
[2024-01-25] MEDS: LACOSAMIDE (*CRX) 100 MG TABLET PO ×2 (08:10→20:39)
[2024-01-25] MEDS: BACLOFEN 5 MG TABLET PO ×2 (08:38→16:35)
--- NOTE | 2024-01-25 14:06 | PM.IMPN ---
Progress Note: A&P Assessment and Plan (1) UTI (urinary tract infection): Code(s): N39.0 - Urinary tract infection, site not specified Status: Acute Assessment and Plan: Did not meet SIRS criteria, however given hypotension, blood cultures and lactic added. Lactic was 1.7. - UA: Cloudy, 1+ blood, positive nitrates, 3+ leuks, greater than 100 WBC, no epithelial cells, 4+ bacteria. - UC pending, obtained on 01/23 - previous micro reviewed, no history of resistance - started on Ceftriaxone on 01/23 (2) Episode of unresponsiveness: Code(s): R40.4 - Transient alteration of awareness Status: Resolved Assessment and Plan: - Head CT: No intracranial hemorrhage, mass, or acute infarct. Stable chronic encephalomalacia superior right frontal lobe with overlying right frontal craniotomy. Atrophy and chronic white matter changes. - improved mentation with Trendelenburg and initially hypotensive per EMS - IV fluids: 2L bolus of NS in the ED - troponin: 0.015 -> <0.012. No active chest pain. - EKG, initial: sinus rhythm, rate 78, moderate T-wave abnormality consider anterior ischemia. - suspect alteration due to hypotension, may have some metabolic encephalopathy secondary to UTI as well - monitor BP, neurochecks Qshift, orthostatic VS Qshift (laying to sitting, wheelchair bound) - carvedilol held - telemetry Resolved. (3) Hypomagnesemia: Code(s): E83.42 - Hypomagnesemia Status: Acute Assessment and Plan: - Mag 1.5 - given 2G IVPB on 01/23 (4) Combined systolic and diastolic congestive heart failure: Qualifiers: Heart failure chronicity: chronic Qualified Code(s): I50.42 - Chronic combined systolic (congestive) and diastolic (congestive) heart failure Code(s): I50.40 - Unspecified combined systolic (congestive) and diastolic (congestive) heart failure Status: Chronic Assessment and Plan: - BNP 589, WNL when adjusted for age - most recent echo (2021): EF 65-70% w/grade 3 diastolic dysfunction. See report for further details. - not currently on diuresis - daily weights - monitor I&Os - trend renal function (5) Chronic kidney disease, stage 3: Qualifiers: Chronic kidney disease stage 3 subtype: stage 3b (GFR 30-44) Qualified Code(s): N18.32 - Chronic kidney disease, stage 3b Code(s): N18.30 - Chronic kidney disease, stage 3 unspecified Status: Chronic Assessment and Plan: - creatinine 0.7 and GFR >60 - hx of CKD stage III - trend renal function (6) Diabetes: Code(s): E11.9 - Type 2 diabetes mellitus without complications Status: Chronic Assessment and Plan: - initial glucose 88 - not currently on medications - Hgb A1c ordered. (7) Hypertension: Qualifiers: Hypertension type: primary hypertension Qualified Code(s): I10 - Essential (primary) hypertension Code(s): I10 - Essential (primary) hypertension Status: Acute Assessment and Plan: - chronic, currently 133/66. Previously hypotensive today. - hold home medications: Carvedilol - monitor Subjective Date/time seen: 01/25/24 14:06 Interval history: patient is alert and oriented x3. She is unable to answer question about who the current president is. She denies any urinary frequency, burning or dysuria. Continue current therapy and we on you cultures return. Exam Narrative: GENERAL: Comfortable, no acute distress HENMT: moist mucous membranes EYES: EOM intact b/l NECK: no lymphadenopathy RESPIRATORY: clear to auscultation, no increased respiratory effort CARDIO: Regular rate and rhythm GI: soft, nontender, bowel sounds present SKIN/EXTREMITIES: no rashes, no edema, no redness or tenderness NEURO: PROM intact, A&O x3 Objective Data Vital Signs Vital Signs: Vital Signs - 24 hr 01/24/24 14:49 01/24/24 16:43 01/24/24 18:44 Temperature 99.6 F Pulse
[2024-01-25] MEDS: MELATONIN 3 MG TABLET PO (20:38)
[2024-01-25] MEDS: ATORVASTATIN 40 MG TABLET PO (20:38)
[2024-01-25] MEDS: SENNA/DOCUSATE SODIUM TABLET 2 TAB PO (20:39)
[2024-01-26] VITALS (15 sets, daily range): BP systolic 124–161; BP diastolic 66–89; PULSE 58–80; RESP 16–18; TEMP 36.6–36.9; O2SAT 98–100
[2024-01-26 05:03] LABS: Hematocrit 27.2 % (37.0-47.0); Hemoglobin 8.8 g/dL (12.0-15.0); Mean Corpuscular HGB Conc 32.4 g/dl (32-36); Mean Corpuscular Hemoglobin 30.2 pg (26-34); Mean Corpuscular Volume 93.5 fl (80-100); Mean Platelet Volume 8.9 fl (7.4-10.4); Platelet Count Result 184 k/mm3 (150-375); Red Blood Count 2.91 M/mm3 (4.2-5.4); Red Cell Distribution Width 12.8 % (11.5-14.5); White Blood Count 11.3 K/mm3 (4.5-10.0)
[2024-01-26 05:05] LABS: Anion Gap 6 mmol/L (4-12); Blood Urea Nitrogen 7 mg/dL (7-17); Calcium 8.5 mg/dL (8.4-10.2); Carbon Dioxide 22 mmol/L (22-30); Chloride 104 mmol/L (98-107); Estimated CRCL calculation 79 ml/min; Estimated Glomerular Filt Rate > 60; Glucose 87 mg/dL (65-110); Potassium 3.9 mmol/L (3.4-5.0); Sodium 132 mmol/L (137-145)
[2024-01-26 05:06] LABS: Hemoglobin A1C 4.7 % (<5.7)
[2024-01-26] MEDS: LACOSAMIDE (*CRX) 100 MG TABLET PO ×2 (08:34→21:37)
[2024-01-26] MEDS: ALPRAZolam (*CRX) 0.25 MG TABLET PO ×2 (08:34→16:20)
[2024-01-26] MEDS: ASPIRIN 81 MG CHEWABLE TABLET PO (08:34)
[2024-01-26] MEDS: DULoxetine HCL 30 MG CAPSULE.DR PO (08:34)
[2024-01-26] MEDS: FOLIC ACID 1 MG TABLET 5 MG PO (08:34)
[2024-01-26] MEDS: BACLOFEN 5 MG TABLET PO ×2 (08:35→16:20)
[2024-01-26] MEDS: PANTOPRAZOLE 40 MG TABLET PO (08:35)
[2024-01-26] MEDS: PREGABALIN (*CRX) 75 MG CAPSULE 150 MG PO ×3 (08:35→16:20)
[2024-01-26] MEDS: ACETAMINOPHEN 325 MG TABLET 650 MG PO ×2 (08:35→21:35)
[2024-01-26] MEDS: SODIUM CHLORIDE 1 GM TABLET PO (08:35)
[2024-01-26] MEDS: DOCUSATE SODIUM 100 MG CAPSULE PO (08:35)
[2024-01-26] MEDS: levETIRAcetam 250 MG TABLET 750 MG PO ×2 (08:35→21:37)
[2024-01-26] MEDS: PSYLLIUM POWDER PACKET 1 PACKET PO (08:36)
[2024-01-26] MEDS: MEROPENEM 1 GM/NS 100 ML 1 GM/100 ML BAG IVPB ×2 (12:19→21:34)
--- NOTE | 2024-01-26 14:36 | PM.IMPN ---
Progress Note: A&P Assessment and Plan (1) UTI (urinary tract infection): Code(s): N39.0 - Urinary tract infection, site not specified Status: Acute Assessment and Plan: Did not meet SIRS criteria, however given hypotension, blood cultures and lactic added. Lactic was 1.7. - UA: Cloudy, 1+ blood, positive nitrates, 3+ leuks, greater than 100 WBC, no epithelial cells, 4+ bacteria. - UC with E coli ESBL. - 01/25 Rocephin discontinued and patient started on meropenem. - Care coordination consulted for IV antibiotics at discharge (2) Episode of unresponsiveness: Code(s): R40.4 - Transient alteration of awareness Status: Resolved Assessment and Plan: - Head CT: No intracranial hemorrhage, mass, or acute infarct. Stable chronic encephalomalacia superior right frontal lobe with overlying right frontal craniotomy. Atrophy and chronic white matter changes. - improved mentation with Trendelenburg and initially hypotensive per EMS - IV fluids: 2L bolus of NS in the ED - troponin: 0.015 -> <0.012. No active chest pain. - EKG, initial: sinus rhythm, rate 78, moderate T-wave abnormality consider anterior ischemia. - suspect alteration due to hypotension, may have some metabolic encephalopathy secondary to UTI as well - monitor BP, neurochecks Qshift, orthostatic VS Qshift (laying to sitting, wheelchair bound) - carvedilol held - telemetry Resolved. (3) Hypomagnesemia: Code(s): E83.42 - Hypomagnesemia Status: Acute Assessment and Plan: - Mag 1.5 - given 2G IVPB on 01/23 (4) Combined systolic and diastolic congestive heart failure: Qualifiers: Heart failure chronicity: chronic Qualified Code(s): I50.42 - Chronic combined systolic (congestive) and diastolic (congestive) heart failure Code(s): I50.40 - Unspecified combined systolic (congestive) and diastolic (congestive) heart failure Status: Chronic Assessment and Plan: - BNP 589, WNL when adjusted for age - most recent echo (2021): EF 65-70% w/grade 3 diastolic dysfunction. See report for further details. - not currently on diuresis - daily weights - monitor I&Os - trend renal function (5) Chronic kidney disease, stage 3: Qualifiers: Chronic kidney disease stage 3 subtype: stage 3b (GFR 30-44) Qualified Code(s): N18.32 - Chronic kidney disease, stage 3b Code(s): N18.30 - Chronic kidney disease, stage 3 unspecified Status: Chronic Assessment and Plan: - creatinine 0.7 and GFR >60 - hx of CKD stage III - trend renal function (6) Diabetes: Code(s): E11.9 - Type 2 diabetes mellitus without complications Status: Chronic Assessment and Plan: - initial glucose 88 - not currently on medications - Hgb A1c ordered. (7) Hypertension: Qualifiers: Hypertension type: primary hypertension Qualified Code(s): I10 - Essential (primary) hypertension Code(s): I10 - Essential (primary) hypertension Status: Acute Assessment and Plan: - chronic, currently 133/66. Previously hypotensive today. - hold home medications: Carvedilol - monitor Subjective Date/time seen: 01/26/24 14:36 Interval history: patient doing well today. She has no complaints at this time. Informed care coordination today that IV antibiotics will need to be set up at discharge and hopefully patient can discharge tomorrow. Exam Narrative: GENERAL: Comfortable, no acute distress HENMT: moist mucous membranes EYES: EOM intact b/l NECK: no lymphadenopathy RESPIRATORY: clear to auscultation, no increased respiratory effort CARDIO: Regular rate and rhythm GI: soft, nontender, bowel sounds present SKIN/EXTREMITIES: no rashes, no edema, no redness or tenderness NEURO: PROM intact, A&O x3 Objective Data Vital Signs Vital Signs: Vital Signs - 24 hr 01/25/24 14:39 01/25/24 16:00 01/25/24 20:51 Tem
[2024-01-26] MEDS: ATORVASTATIN 40 MG TABLET PO (21:36)
[2024-01-26] MEDS: SENNA/DOCUSATE SODIUM TABLET 2 TAB PO (21:36)
[2024-01-26] MEDS: MELATONIN 3 MG TABLET PO (21:38)
[2024-01-26] MEDS: IBUPROFEN 400 MG TABLET PO (21:39)
[2024-01-27] VITALS: PULSE 71
[2024-01-27] MEDS: LACTATED RINGERS 1,000 ML 125 ML IV CONT (02:41)
[2024-01-27 04:00] VITALS: PULSE 58
[2024-01-27] MEDS: MEROPENEM 1 GM/NS 100 ML 1 GM/100 ML BAG IVPB ×2 (04:22→12:46)
[2024-01-27 05:39] LABS: Hematocrit 26.7 % (37.0-47.0); Hemoglobin 8.5 g/dL (12.0-15.0); Mean Corpuscular HGB Conc 31.8 g/dl (32-36); Mean Corpuscular Hemoglobin 30.8 pg (26-34); Mean Corpuscular Volume 96.7 fl (80-100); Mean Platelet Volume 8.9 fl (7.4-10.4); Platelet Count Result 201 k/mm3 (150-375); Red Blood Count 2.76 M/mm3 (4.2-5.4); Red Cell Distribution Width 12.8 % (11.5-14.5); White Blood Count 9.2 K/mm3 (4.5-10.0)
[2024-01-27 05:48] LABS: Anion Gap 8 mmol/L (4-12); Blood Urea Nitrogen 5 mg/dL (7-17); Calcium 8.5 mg/dL (8.4-10.2); Carbon Dioxide 22 mmol/L (22-30); Chloride 105 mmol/L (98-107); Estimated CRCL calculation 79 ml/min; Estimated Glomerular Filt Rate > 60; Glucose 82 mg/dL (65-110); Potassium 3.8 mmol/L (3.4-5.0); Sodium 135 mmol/L (137-145)
[2024-01-27 06:00] VITALS: BP 147/75; PULSE 61; RESP 18; TEMP 36.5; O2SAT 97
[2024-01-27 08:00] VITALS: PULSE 59
[2024-01-27] MEDS: FOLIC ACID 1 MG TABLET 5 MG PO (08:51)
[2024-01-27] MEDS: ACETAMINOPHEN 325 MG TABLET 650 MG PO (08:51)
[2024-01-27] MEDS: LACOSAMIDE (*CRX) 100 MG TABLET PO (08:51)
[2024-01-27] MEDS: PREGABALIN (*CRX) 75 MG CAPSULE 150 MG PO ×2 (08:51→12:46)
[2024-01-27] MEDS: ALPRAZolam (*CRX) 0.25 MG TABLET PO (08:52)
[2024-01-27] MEDS: SODIUM CHLORIDE 1 GM TABLET PO (08:52)
[2024-01-27] MEDS: PANTOPRAZOLE 40 MG TABLET PO (08:52)
[2024-01-27] MEDS: DULoxetine HCL 30 MG CAPSULE.DR PO (08:52)
[2024-01-27] MEDS: DOCUSATE SODIUM 100 MG CAPSULE PO (08:52)
[2024-01-27] MEDS: levETIRAcetam 250 MG TABLET 750 MG PO (08:52)
[2024-01-27] MEDS: BACLOFEN 5 MG TABLET PO (08:52)
[2024-01-27] MEDS: ASPIRIN 81 MG CHEWABLE TABLET PO (08:52)
[2024-01-27] MEDS: PSYLLIUM POWDER PACKET 1 PACKET PO (08:53)
[2024-01-27] MEDS: LIDOCAINE HCL 1% LOCAL INJ 2 ML AMPUL 5 ML INFILTRATE (10:50)
[2024-01-27 12:00] VITALS: PULSE 66
--- NOTE | 2024-01-27 12:00 | PM.DS ---
DS: Admitting Diagnosis Discharge Date 01/27/24 Admitting Diagnosis UTI, syncope DS: Discharge Diagnosis Discharge Diagnosis (1) UTI (urinary tract infection): Code(s): N39.0 - Urinary tract infection, site not specified Status: Acute (2) Episode of unresponsiveness: Code(s): R40.4 - Transient alteration of awareness Status: Resolved (3) Hypomagnesemia: Code(s): E83.42 - Hypomagnesemia Status: Acute (4) Combined systolic and diastolic congestive heart failure: Qualifiers: Heart failure chronicity: chronic Qualified Code(s): I50.42 - Chronic combined systolic (congestive) and diastolic (congestive) heart failure Code(s): I50.40 - Unspecified combined systolic (congestive) and diastolic (congestive) heart failure Status: Chronic (5) Chronic kidney disease, stage 3: Qualifiers: Chronic kidney disease stage 3 subtype: stage 3b (GFR 30-44) Qualified Code(s): N18.32 - Chronic kidney disease, stage 3b Code(s): N18.30 - Chronic kidney disease, stage 3 unspecified Status: Chronic (6) Diabetes: Code(s): E11.9 - Type 2 diabetes mellitus without complications Status: Chronic (7) Hypertension: Qualifiers: Hypertension type: primary hypertension Qualified Code(s): I10 - Essential (primary) hypertension Code(s): I10 - Essential (primary) hypertension Status: Acute DS: Summary Hospital Course Hospital Course: 59 y/o F presented here after unresponsive episode with PMH of hemorrhagic stroke with left-sided hemiplegia, seizures, hypertension, GERD, chronic hyponatremia, and chronic kidney disease. Patient presented here via EMS from [place] with AMS. Per EMS report to the ED, initial call was made due to patient being unresponsive with a hsu pallor, shallow respirations, and weak carotid pulse. ? Upon their arrival patient was awake but hypotensive. 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 Viral PCR negative.? head CT showed no acute findings, stable chronic encephalomalacia of superior right frontal lobe with overlying right frontal craniotomy, atrophy and chronic white matter changes.? CXR showed clear lungs. patient started on Rocephin for UTI. Urine culture came back as E coli ESBL and she had to be transition to meropenem. Care coordination consulted for IV antibiotics at discharge. Will discharge patient on ertapenem Q 24. Patient's facility was notified. Midline placed. Time Spent with Patient Time attestation: Total time spent providing and/or coordinating discharge services: Exam Narrative: GENERAL: Comfortable, no acute distress HENMT: moist mucous membranes EYES: EOM intact b/l NECK: no lymphadenopathy RESPIRATORY: clear to auscultation, no increased respiratory effort CARDIO: Regular rate and rhythm GI: soft, nontender, bowel sounds present SKIN/EXTREMITIES: no rashes, no edema, no redness or tenderness NEURO: PROM intact, A&O x3 DS: Data Data Completed and Pending Labs on day of discharge: Labs from last 24 hours 01/27/24 05:23 WBC 9.2 RBC 2.76 L Hgb 8.5 L Hct 26.7 L MCV 96.7 MCH 30.8 MCHC 31.8 L RDW 12.8 Plt Count 201 MPV 8.9 Sodium 135 L Potassium 3.8 Chloride 105 Carbon Dioxide 22 Anion Gap 8 BUN 5 L Creatinine 0.50 L Estim Creat Clear Calc 79 Estimated GFR > 60 Glucose 82 Calcium 8.5 Preliminary micro results at discharge 01/24/24 12:30 Blood Culture - Preliminary Blood 01/24/24 13:11 Blood Culture - Preliminary Blood Discharge Plan Discharge Discharging Clinician: Julia Hensley
[2024-01-27] MEDS: SALINE LOCK FLUSH 10 ML IV PUSH (12:46)
[2024-01-27 13:42] LABS: SARS-CoV-2 RNA PCR Negative (Negative)
== END 2024-01-27 15:10 ==
LOC: ANHED 16:05 → ANH2MED 17:27
PROVIDERS: Internal Medicine Critical Care Medicine; Student in an Organized Health Care Education/Training Program; Admitting Provider Internal Medicine; Emergency Provider Emergency Medicine; PCP Internal Medicine; Visit Provider Internal Medicine
DX: N39.0 Urinary tract infection, site not specified (principal); B96.20 Unspecified Escherichia coli [E. coli] as the cause of diseases classified elsewhere; I95.9 Hypotension, unspecified; R40.4 Transient alteration of awareness; E83.42 Hypomagnesemia; I13.0 Hypertensive heart and chronic kidney disease with heart failure and stage 1 through stage 4 chronic kidney disease, or unspecified chronic kidney disease; E11.22 Type 2 diabetes mellitus with diabetic chronic kidney disease; I50.40 Unspecified combined systolic (congestive) and diastolic (congestive) heart failure; N18.30 Chronic kidney disease, stage 3 unspecified; I69.354 Hemiplegia and hemiparesis following cerebral infarction affecting left non-dominant side; G40.909 Epilepsy, unspecified, not intractable, without status epilepticus; D64.9 Anemia, unspecified; K21.9 Gastro-esophageal reflux disease without esophagitis; Z79.82 Long term (current) use of aspirin; Z20.822 Contact with and (suspected) exposure to COVID-19
CPT/HCPCS: 36415; 36569; 70450; 71045; 80048; 80053; 81001; 83036; 83605; 83690; 83735; 83880; 84100; 84484; 85025; 85027; 85055; 85610; 85730; 87040; 87077; 87086; 87088; 87186; 87635; 87637; 93005; 96361; 96365; 96366; 96367; 96374; 99285; A9270; G0378; G0379; J0696; J2185; J3475; J7030; J7120

== ENCOUNTER 2024-08-26 14:10 | Emergency (ER) | payer OTHER, SELFPAY ==
--- NOTE | ~2024-08-26 | US_ITS ---
LEFT LOWER EXTREMITY VENOUS ULTRASOUND Ordering provider: Rebel Arroyo MD History: . r/o venous occlusion. Cold foot . Comparison: None. FINDINGS: --COMMON FEMORAL: Patent and free of thrombus. Normal compressibility, phasic flow and augmentation. --PROXIMAL SUPERFICIAL FEMORAL: Patent and free of thrombus. Normal compressibility, phasic flow and augmentation. --DISTAL SUPERFICIAL FEMORAL: Patent and free of thrombus. Normal compressibility, phasic flow and au gmentation. --POPLITEAL: Patent and free of thrombus. Normal compressibility, phasic flow and augmentation. --POSTERIOR TIBIAL: Patent and free of thrombus. Normal compressibility, phasic flow and augmentation . IMPRESSION: Negative left lower extremity venous US. No deep vein thrombosis. Reviewed, dictated and finalized at location A. [employer] DIRECT[employer]ELFARE
--- NOTE | ~2024-08-26 | US_ITS ---
EXAMINATION: US arterial duplex [facility] DATE: 08/26/2024 15:17 INDICATION: Chronic left foot TECHNIQUE: Multiple grayscale and Doppler ultrasound images of the arteries of the left lower limb we re obtained. COMPARISON: None FINDINGS: Normal triphasic waveforms with brisk systolic upstrokes at the left external iliac, common femoral, profunda femoral, superficial femoral and popliteal arteries. There are biphasic waveforms also with brisk systolic upstrokes at the left posterior tibial, peroneal, anterior tibial and dorsalis pedis a rteries. IMPRESSION: 1. Triphasic waveforms at and proximal to the left popliteal artery with biphasic waveforms more dist ally and brisk systolic upstrokes throughout. Reviewed, dictated and finalized at location B. [employer] OPERATOR HELPER IMPRESSION: 1. Triphasic waveforms at and proximal to the left popliteal artery with biphas ic waveforms more distally and brisk systolic upstrokes throughout.
[2024-08-26 14:15] VITALS: BP 115/52; PULSE 63; RESP 15; TEMP 36.7; O2SAT 100
--- NOTE | 2024-08-26 14:46 | ED.EXTPRO ---
HPI - Extremity Problem General Chief complaint: Extremity Problem,Nontraumatic Stated complaint: discolored foot Time Seen by Provider: 08/26/24 14:24 History of Present Illness HPI Narrative: 59-year-old female with a past medical history significant for ruptured cerebral aneurysm causing hemorrhagic stroke with residual left-sided aileen deficits. She has residual seizure disorder, hypertension, CKD and chronic hyponatremia. Today patient presents to the emergency department for evaluation of a cold left foot. Patient was otherwise in her normal state of health and her nurse home health care notice that she had a left foot that was purple and cold to the touch. Patient states that she woke up with this and did not think anything of it, put on some compression socks and went about her day with her normal exercise plan at her halfway. Patient's nurse noted that it seemed to have possibly been worsening and sent her into the emergency department for evaluation. Denies any chest pain, shortness a breath, dizziness. No complaints of pain. She is insensate to the left foot but is able to flex and move the hip and left lower extremity. Some contractions are left upper extremity but still able to move the left arm. No definite right-sided. Awake alert oriented x4. No other complaints. She takes aspirin and a statin but no other blood thinners or anticoagulation measures. Related Data Home Medications ?Medication ?Instructions ?Recorded ?Confirmed ?Last Taken ?Type acetaminophen 325 mg tablet 650 mg PO BID 10/21/21 01/24/24 11/09/23 History folic acid 1 mg tablet 5 mg PO DAILY 10/21/21 01/24/24 11/09/23 History lacosamide 100 mg tablet (Vimpat) 100 mg PO BID 10/21/21 01/24/24 11/09/23 History levetiracetam 750 mg tablet 750 mg PO BID 10/21/21 01/24/24 11/09/23 History melatonin 3 mg tablet 3 mg PO HS 10/21/21 01/24/24 11/08/23 History aspirin 81 mg chewable tablet 81 mg PO DAILY 02/21/22 01/24/24 11/09/23 History omeprazole 20 mg capsule,delayed 20 mg PO DAILY 02/21/22 01/24/24 11/09/23 History release baclofen 5 mg tablet 5 mg PO BID 10/26/23 01/24/24 11/09/23 History duloxetine 30 mg capsule,delayed 30 mg PO DAILY 10/26/23 01/24/24 11/08/23 History release (Cymbalta) lidocaine 5 % topical patch 1 patch topical DAILY 10/26/23 01/24/24 11/07/23 06:44 History polyethylene glycol 3350 17 gram 17 g PO DAILY PRN Constipation 10/26/23 01/24/24 11/08/23 History oral powder packet (Miralax) pregabalin 150 mg capsule 150 mg PO TID 10/26/23 01/24/24 11/09/23 History alprazolam 0.25 mg tablet 0.25 mg PO BID 11/09/23 01/24/24 11/09/23 History atorvastatin 40 mg tablet 40 mg PO HS 11/09/23 01/24/24 11/08/23 History carvedilol 3.125 mg tablet (Coreg) 3.125 mg PO BID 11/09/23 01/24/24 11/09/23 History acetaminophen 500 mg capsule 500 mg PO Q6H PRN Pain 01/24/24 01/24/24 Unknown History benzonatate 100 mg capsule 100 mg PO TID PRN Cough 01/24/24 01/24/24 Unknown History calcium carbonate (Tums) 200 mg PO BID PRN Indigestion 01/24/24 01/24/24 Unknown History cholecalciferol (vitamin D3) 125 1,250 mcg PO WEEKLY 01/24/24 01/24/24 Unknown History mcg (5,000 unit) tablet (Vitamin D3) docusate sodium 100 mg capsule 100 mg PO DAILY 01/24/24 01/24/24 Unknown History (Colace) ibuprofen 400 mg tablet 400 mg PO TID PRN Pain 01/24/24 01/24/24 Unknown History lactulose 10 gram/15 mL oral 10 g PO DAILY PRN IF MIRALAX OR 01/24/24 01/24/24 Unknown History solution STOOL SOFTNER INEFFECTIVE psyllium husk (with sugar) 3.4 1 tbsp PO DAILY 01/24/24 01/24/24 Unknown History gram oral powder packet (Metamucil (with sugar)) simethicone 80 mg chewable tablet 80 mg PO QID PRN Gastric Reflux 01/24/24 01/24/24 Unknown History sodium chloride 1,000 mg soluble 1,000 mg PO DAILY 01/24/24 01/24/24 Unknown History tablet Allergies Allergy/AdvReac Type Severity Reaction Status Date / Time No Known Allergies Allergy Unknown Verified 08/26/24 14:34 Review of Systems Review of Systems: As reviewed above in [facility] Past Medical History Medical History Chronic hyponatremia Chronic anemia Chronic kidney disease, stage 3 Hypertension Combined systolic and diastolic congestive heart failure Poorly documented in chart. Hemorrhagic stroke September 2021, persistent left hemiparesis, craniotomies were related to this Seizure disorder Kidney stones Surgical History Surgical History History of craniotomy 3 craniotomies within a week in September 2021 History of gastrostomy tube placement Removed 08/04/2022. History of ureter stent (12/2004) History of cystoscopy (12/2004) Family History Family History Mother Alzheimer's dementia A-fib Father Cerebrovascular accident Hypertension Heart disease Cancer Sibling Cancer Depression Social History Social History Social History: Surrogate medical decision maker: Shyam Figueroa, daughter. Code status: Full code. Smoking status: Former smoker Tobacco type: cigarettes Alcohol intake: never Drinks per week: 2 Substance use: never Substance use type: does not use Last use: 09/24/21 Do You Feel Safe in your Home?: Yes Lack of Transportation: No Lack of Food: Never True Current Housing: I Have Housing Concerned About Future Housing: No Difficulty Paying Gas/Electric Bills: No Difficulty Paying for Meds: No Currently Unemployed: No Education: High School Diploma/GED Difficulty w/ Childcare or Family Care: No Spiritual care concerns: No Exam Narrative: GENERAL: [Well-appearing, well-nourished, and in no acute distress.] HEAD: [Normocephalic, atraumatic.] EYES: [PERRLA and EOMI.] ENT: Nares clear, no rhinorrhea or epistaxis. Mucous membranes moist. NECK: Supple. CHEST: [Clear to auscultation. No respiratory distress.] HEART: [Regular rate and rhythm]. No murmur heard. [Normal peripheral pulses.] ABDOMEN: [Soft, nondistended], [nontender], [No rigidity or guarding] EXTREMITIES: Left-sided contractures and hemiplegia, is flex at the hip and move her left arm but no flexion extension or movement of the left lower extremity distal to the knee. No deficit in the right side SKIN: Cool, somewhat red and purple discoloration with a prolonged cap refill of the left foot at all 5 digits, demarcated around the proximal malleolus. The right leg is also somewhat cold but not as fully discolored, also has a slightly prolonged cap refill but not as pronounced his left leg which is obviously purple. NEURO: Left-sided aielen deficits chronic, alert oriented x4, no new focal complaints. PSYCH: [Normal mood and affect.] Course Vital Signs Vital signs: Vital Signs Temperature 36.7 C 08/26/24 14:15 Pulse Rate 63 08/26/24 14:15 Respiratory Rate 15 08/26/24 14:15 Blood Pressure 115/52 L 08/26/24 14:15 Pulse Oximetry 100 08/26/24 14:15 Oxygen Delivery Room Air 08/26/24 14:15 Temperature 36.7 C 08/26/24 14:15 Pulse Rate 60 08/26/24 19:13 Respiratory Rate 12 08/26/24 19:13 Blood Pressure 144/68 H 08/26/24 19:13 Pulse Oximetry 98 08/26/24 19:13 Oxygen Delivery Room Air 08/26/24 14:15 MDM - Extremity (Nontraumatic) MDM Narrative Medical decision making narrative: 59-year-old female presenting from her nursing facility for a discolored left foot that is also cool to the touch. She has a history of intracranial hemorrhage in hemorrhagic stroke for ruptured AVM causing left-sided aileen deficits. She takes aspirin and statin but no other blood thinners or anticoagulation measures. She woke up today with a cool left discolored foot without any pain. She is insensate the ankle normally. No new focal neurological deficits or complaints. No trauma or injury. Patient was otherwise in her normal state of health. She tried putting compression stockings on her foot without any improvement. Patient tells me she has previously had some discoloration with purple feet similar to this presentation that happened before and resolved with warm compression socks and this feels very similar. There is obvious asymmetry with full to the touch cool foot on the left lower extremity with prolonged cap refill and a barely audible dorsalis pedis and posterior tibialis pulse on Doppler. Right side has a palpable 2+ pedal pulse. Considerations presently are for an acute vaso spasm, Verde phenomenon, acute arterial occlusion however her mobility status is also raises possibility for a deep venous thrombosis if large enough could also cause similar findings but there is no significant swelling which raises concern that this more arterial in nature. Arterial and venous duplex Doppler ultrasounds were conducted of the left lower extremity. Laboratory studies were obtained. No leukocytosis, anemia at baseline. Coagulation studies within normal limits. Electrolytes within normal limits, normal renal function panel. DVT ultrasound shows no evidence of deep venous thrombosis, patent vasculature throughout the left lower extremity. Arterial ultrasound shows triphasic waveforms proximal to left popliteal artery and biphasic waveforms with brisk systolic upstroke throughout the left distal extremity. I went and re-evaluated the patient and she had a warm perfusing left lower extremity with a palpable brisk dorsalis pedis and posterior tibialis pulse at this time consistent equal to the right lower extremity. Given the complete improvement of her vascular flow and symptoms I believe she likely had a profound vasospasm or renaulds type phenomena for left lower extremity as she has now warm and well perfused with no persistent discoloration. This makes me more reassured especially combined with the ultrasound findings with both arterial and venous systems and there is no acute arterial or venous occlusion or insufficiency. I went over these findings with the patient and plan of care going forward which will be to have her discharged home with PCP follow-up and return precautions including any recurrence with profound discoloration or cold sensation or painful sensation that is unremitting. I discussed that since this is not the 1st time this has happened to her she likely does have some kind of vasospastic process but no acute interventions are needed at this time given the lack of any symptoms and resolution without intervention. Patient verbalized understanding and was safe for discharge back to her facility at this time via EMS ambulance. Lab Data 08/26/24 14:48 08/26/24 14:48 Labs: Lab Results 08/26/24 08/26/24 Range/Units 14:48 15:27 WBC 7.5 (4.5-10.0) K/mm3 RBC 3.73 L (4.2-5.4) M/mm3 Hgb 10.9 L (12.0-15.0) g/dL Hct 33.2 L (37.0-47.0) % MCV 89.0 (80-100) fl MCH 29.2 (26-34) pg MCHC 32.8 (32-36) g/dl RDW 13.3 (11.5-14.5) % Plt Count 301 (150-375) k/mm3 MPV 8.7 (7.4-10.4) fl Immature Gran % (Auto) 0.1 (0-0.5) % Neut % (Auto) 52.1 (45.5-73.1) % Lymph % (Auto) 32.8 (18.3-44.2) % [place] % (Auto) 11.9 H (2.6-8.5) % Eos % (Auto) 2.3 (0-4.4) % Baso % (Auto) 0.8 (0.2-1.2) % Lymph # (Auto) 2.45 (0.9-3.2) K/mm3 [place] # (Auto) 0.9 H (0.1-0.6) K/mm3 Eos # (Auto) 0.2 (0-0.3) K/mm3 Baso # (Auto) 0.1 (0.0-0.1) K/mm3 Abs Immat Gran (auto) 0.01 (0.00-0.031) K/mm3 Absolute Neuts (auto) 3.9 (1.3-6.7) K/mm3 Absolute Nucleated RBC 0.000 (0.0-0.012) K/mm3 Nucleated RBC % 0.0 (0.0-0.2) % PT 13.8 (11.1-14.7) Seconds INR 1.0 APTT 31.6 (22.3-36.8) Seconds Sodium 133 L (137-145) mmol/L Potassium 4.9 (3.4-5.0) mmol/L Chloride 100 (98-107) mmol/L Carbon Dioxide 29 (22-30) mmol/L Anion Gap 4 (4-12) mmol/L BUN 12 D (7-17) mg/dL Creatinine 0.50 L (0.7-1.0) mg/dL Estim Creat Clear Calc 79 ml/min Estimated GFR > 60 (59 - ) Glucose 82 (65-110) mg/dL Lactic Acid 0.9 (0.7-2.0) mmol/L Calcium 9.4 (8.4-10.2) mg/dL Discharge Plan Discharge Clinical Impression: Peripheral artery vasospasm, Normal pulse in left dorsalis pedis artery, Normal pulse in left posterior tibial artery, Normal pulse strength Patient Disposition: Home, Self-Care Condition: Stable Instructions: Antibiotic Form, Raynaud Disease (ED) Additional Instructions: Initially your leg was cold and we did not feel palpable pulse however we got Dopplers both venous and arterial of the leg and there is full circulation in all the major vessels. Your pulse and warm leg returned without intervention which makes me think you had a transient vasospasm which can be seen in cold exposures or a process called Boy phenomenon. This is a overall benign process and I believe you can safely go home back to your facility and follow up on outpatient basis with your PCP. Return with any new or worsening concerns or any prolonged feeling of cold or lacking pulse in the leg Patient Language: Chinese Prescriptions: No Action duloxetine [Cymbalta] 30 mg capsule,delayed release(DR/EC) 30 mg PO DAILY lidocaine 5 % adhesive patch,medicated 1 patch topical DAILY Rx Instructions: leave on most painful area for up to 12 hrs polyethylene glycol 3350 [Miralax] 17 gram powder in packet 17 g PO DAILY PRN (Reason: Constipation) pregabalin 150 mg capsule 150 mg PO TID baclofen 5 mg tablet 5 mg PO BID omeprazole 20 mg capsule,delayed release(DR/EC) 20 mg PO DAILY aspirin 81 mg Tablet,Chewable 81 mg PO DAILY alprazolam 0.25 mg tablet 0.25 mg PO BID atorvastatin 40 mg tablet 40 mg PO HS carvedilol [Coreg] 3.125 mg tablet 3.125 mg PO BID sennosides-docusate sodium [Senokot-S] 8.6-50 mg Tablet 2 tab PO HS Qty: 60 0RF Metamucil (with sugar) 3.4 gram powder in packet 1 tbsp PO DAILY benzonatate 100 mg Capsule 100 mg PO TID PRN (Reason: Cough) calcium carbonate [Tums] 200 mg calcium (500 mg) Tablet,Chewable 200 mg PO BID PRN (Reason: Indigestion) ibuprofen 400 mg Tablet 400 mg PO TID PRN (Reason: Pain) docusate sodium [Colace] 100 mg Capsule 100 mg PO DAILY acetaminophen 500 mg Capsule 500 mg PO Q6H PRN (Reason: Pain) simethicone 80 mg Tablet,Chewable 80 mg PO QID PRN (Reason: Gastric Reflux) lactulose 10 gram/15 mL Solution 10 g PO DAILY PRN (Reason: IF MIRALAX OR STOOL SOFTNER INEFFECTIVE) sodium chloride 1,000 mg Tablet,Soluble 1,000 mg PO DAILY cholecalciferol (vitamin D3) [Vitamin D3] 125 mcg (5,000 unit) Tablet 1,250 mcg PO WEEKLY Rx Instructions: 50,000 units ertapenem 1 gram recon soln 1 g IM Q24H Qty: 10 0RF ertapenem 1 gram Recon Soln 1 g IV Q24H Qty: 5 0RF acetaminophen 325 mg Tablet 650 mg PO BID melatonin 3 mg Tablet 3 mg PO HS folic acid 1 mg Tablet 5 mg PO DAILY levetiracetam 750 mg Tablet 750 mg PO BID lacosamide [Vimpat] 100 mg Tablet 100 mg PO BID loperamide 2 mg Tablet 2 mg PO QID PRN (Reason: Diarrhea) Qty: 7 0RF Follow-up/Referrals: Rody,MD Taiwo [Primary Care Provider] - Time of Disposition: 18:03
[2024-08-26 14:53] LABS: Basophils Absolute Auto 0.1 K/mm3 (0.0-0.1); Basophils Percent Auto 0.8 % (0.2-1.2); Eosinophils Absolute Auto 0.2 K/mm3 (0-0.3); Eosinophils Percent Auto 2.3 % (0-4.4); Hematocrit 33.2 % (37.0-47.0); Hemoglobin 10.9 g/dL (12.0-15.0); Immature Granulocyte Absolute 0.01 K/mm3 (0.00-0.031); Immature Granulocyte Percent A 0.1 % (0-0.5); Lymphocytes Absolute Auto 2.45 K/mm3 (0.9-3.2); Lymphocytes Percent Auto 32.8 % (18.3-44.2); Mean Corpuscular HGB Conc 32.8 g/dl (32-36); Mean Corpuscular Hemoglobin 29.2 pg (26-34); Mean Platelet Volume 8.7 fl (7.4-10.4); Monocytes Absolute Auto 0.9 K/mm3 (0.1-0.6); Monocytes Percent Auto 11.9 % (2.6-8.5); Neutrophils Absolute Auto 3.9 K/mm3 (1.3-6.7); Neutrophils Percent Auto 52.1 % (45.5-73.1); Platelet Count Result 301 k/mm3 (150-375); Red Blood Count 3.73 M/mm3 (4.2-5.4); Red Cell Distribution Width 13.3 % (11.5-14.5); White Blood Count 7.5 K/mm3 (4.5-10.0)
[2024-08-26 15:03] LABS: Anion Gap 4 mmol/L (4-12); Blood Urea Nitrogen 12 mg/dL (7-17); Calcium 9.4 mg/dL (8.4-10.2); Carbon Dioxide 29 mmol/L (22-30); Chloride 100 mmol/L (98-107); Estimated CRCL calculation 79 ml/min; Estimated Glomerular Filt Rate > 60; Glucose 82 mg/dL (65-110); Potassium 4.9 mmol/L (3.4-5.0); Sodium 133 mmol/L (137-145)
[2024-08-26 15:08] LABS: Prothrombin Time 13.8 Seconds (11.1-14.7)
[2024-08-26 15:09] LABS: Partial Thromboplastin Time 31.6 Seconds (22.3-36.8)
[2024-08-26 15:40] LABS: Lactic Acid Reflex 0.9 mmol/L (0.7-2.0)
[2024-08-26 19:13] VITALS: BP 144/68; PULSE 60; RESP 12; O2SAT 98
[2024-08-26 20:10] VITALS: BP 129/65; PULSE 61; RESP 12; O2SAT 100
== END 2024-08-26 20:11 | disposition home or self-care (01) ==
PROVIDERS: Emergency Provider Student in an Organized Health Care Education/Training Program; PCP Internal Medicine
DX: I73.9 Peripheral vascular disease, unspecified (principal); I69.354 Hemiplegia and hemiparesis following cerebral infarction affecting left non-dominant side; G40.909 Epilepsy, unspecified, not intractable, without status epilepticus; I12.9 Hypertensive chronic kidney disease with stage 1 through stage 4 chronic kidney disease, or unspecified chronic kidney disease; N18.30 Chronic kidney disease, stage 3 unspecified; E87.1 Hypo-osmolality and hyponatremia; D63.1 Anemia in chronic kidney disease; Z87.891 Personal history of nicotine dependence
CPT/HCPCS: 36415; 80048; 83605; 85025; 85610; 85730; 93926; 93971; 99281